=== PATIENT | male | born 1975 | race Caucasian/White ===

== ENCOUNTER 2025-02-22 14:06 | Inpatient (IN) | payer SELFPAY ==
[2025-02-22] VITALS (8 sets, daily range): BP systolic 125–156; BP diastolic 80–99; PULSE 88–117; RESP 15–19; TEMP 35.7–36.4; O2SAT 99–100; BMI 22.4
--- NOTE | ~2025-02-22 | XR_ITS ---
EXAMINATION: XR foot RT min 3V DATE: 02/22/2025 14:44 INDICATION: Necrotic great toe TECHNIQUE: Dorsoplantar, two oblique and lateral views of the right foot were obtained. COMPARISON: None. FINDINGS: Bone alignment is normal. No fracture. There is cortical erosion with osteolysis at the medial base o f the right first distal phalanx underlying an apparent skin ulceration and consistent with osteomyel itis. There is lucent region of soft tissue gas at the site of the erosion. No other erosions identif ied. Mild osteoarthritis at the first metatarsophalangeal and a few of the tarsal metatarsal and inte rphalangeal joints. Small Achilles and plantar calcaneal spurs. IMPRESSION: 1. Osteomyelitis with cortical erosion and osteomyelitis at the medial base of the right first distal phalanx. Reviewed, dictated and finalized at location B.
--- OUTSIDE RECORDS SUMMARY | 2025-02-22 14:22 | XMS_ITS | Clinical Summary ---
Author Organization [facility] Address [address] [place] [address] Care Team Providers Care Mortgage Protection Specialist Name Role Phone Unavailable Primary Care Provider Unavailabl e Source Comments [facility],non-owned Affiliates and Associated Physician Practices is amultiple site organization consisting of ambulatory clinics and hospital sitesin [place], [place], [place] and [place]. This disclosure is being madepursuant to the Care Everywhere program and may not contain all information available regarding this patient. Last updated 18.[facility] Social History Tobacco Use Types Packs/Day Years Used Date Smoking Tobacco: Never Assessed Sex and Gender Information Value Date Recorded Sex Assigned at Not on file Legal Sex Male 9:02 AM CDT Gender Identity Not on file Sexual Orientation Not on file Plan of Treatment Upcoming Encounters Date Type Department Care Team (Late st Contact Info) Description 03/01/2025 2:30 PM CDT Office Visit [facility] - Family Medicine [address] [facility] [address] [place] [address] Cash Wallace PA-C [address] [place] [phone] Health Maintenance Due Date Last Done Comments COLOGUARD (AGES 45-75) - COL ON CA SCREENING 1976 COLON MONITORING 1976 COLONOSCOPY - COLON CA SCREENING 1976 CT COLONOGRAPHY - COLON CA SCREENING 1976 Colorectal Cancer Screening 1976 FIT - COLON CA SCREENING 1976 FLEX SIG - COLON CA SCREENING 1976 LIPID TESTING 1976 HIV SCREENING 1991 HEPATITIS C SCREENING 08/23/1994 DTAP/TDAP/TD VACCINES (1 - Tdap) 1995 HEPATITIS B VACCINE (1 of 3 - 19+ 3-dose series) 1995 COVID-19 VACCINE (1 - 2024-2 5 season) 2024 DEPRESSION SCREENING 09/06/2024 INFLUENZA VACCINE (Season Ended) 2025 ZOSTER VACCINE (1 of 2) 2026 HIB VACCINE Aged Out No longer eligi ble based on patient's age to complete this topic HPV VACCINE Aged Out No longer eligi ble based on patient's age to complete this topic MENINGOCOCCAL (Group B) VACC INE SHARED DECISION-MAKING Aged Out No longer eligibl e based on patient's age to complete this topic MENINGOCOCCAL GROUPS A/C/Y/W VACCINE Aged Out No longer eligible b ased on patient's age to complete this topic PNEUMOCOCCAL VACCINE Aged Out No long er eligible based on patient's age to complete this topic
--- OUTSIDE RECORDS SUMMARY | 2025-02-22 14:22 | XMS_ITS | Continuity of Care Document ---
Author Organization [facility] Address [address] [place] [address] Phone Care Team Providers Care Pie Maker Name Role Phone Unavailable Unavailable Unavailable Procedures Procedure Date OFFICE/OUTPATIENT VISIT, NEW COLLECTION OF VENOUS BLOOD BY VENIPUNCTU RE COLLECTION OF VENOUS BLOOD BY VENIPUNCTU RE Advance Directives Directive Yes / No Effective Date File Name No Information Encounters Encounter Description Practice Location Reason(s) For Visit Diagnoses Date Provider Providers Copied on Encounter [facility], [address], [place], [place], [id number] , tel:[phone] [facility] [place] No Information 3 No Information OFFICE/OUTPAT IENT VISIT, NEW [facility], [address], [place], [place], [address] , tel: [phone] [facility] [place] Begin ADHA medication (chief complaint) 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 [address], [place], [place], [address], . [phone] Family History Family Member Type Diagnosis Age At Onset No Information Payers Payer name Insurance type Covered green party ID Authoriza tion(s) No Information Social History Type Description Quantity Date Captured Comments Sex Male Smoking Status No Information Chief Complaint And Reason For Visit No Information Reason For Referral Reason For Referral No Information Plan Of Treatment Date Type Action Status Goal BMP fasting. Due on 012 due Referral Ordered: Records Request ordered History Of Present Illness Encounter Date Complaint History Of Prese nt Illness No Information Functional Status Date Functional Assessmen t No Information Instructions Date Instruction Additional Infor mation No Information Assessments Type Assessment Date No Information Patient Care Teams Name Effective Dates (start - stop) Status Members No Information
--- NOTE | 2025-02-22 14:26 | ED_ITS ---
HPI - Wound/Laceration General Chief Complaint: Wound/Laceration Stated Complaint: right great toe infection Time Seen by Provider: 02/22/25 14:15 History of Present Illness HPI narrative: Pt presents with infected right great toe for some time. Pt says he may be diabetic but does not take any meds. Pt denies fever or chills. Related Data Allergies Allergy/AdvReac Type Severity Reaction Status Date / Time No Known Allergies Allergy Unverified 11/04/18 09:01 Review of Systems 2 Review of Systems: All systems reviewed & are unremarkable except as noted in HPI and below PMFSH Past Medical History Medical History Diabetes Surgical History Surgical History No pertinent past surgical history Family History Family History Father Family history of suicide, Onset Age: 45 Family history of diabetes mellitus in first degree relative Mother Family history of diabetes mellitus in first degree relative Social History Social History Smoking status: Current every day smoker Alcohol intake: never Substance use: current Substance use type: amphetamines Last use: Last weekend Exam 2 Const: General: healthy appearing and no acute distress Nutritional Appearance: well nourished Orientation/consciousness: patient oriented x3 Limitations: no limitations Eyes: Pupils: Equal, round and reactive pupils present EOM: EOMs intact bilaterally Resp: Effort & Inspection: normal respiratory effort Auscultation: clear to auscultation bilaterally Cardio: Rate: regular rate Rhythm: regular rhythm GI: GI Palp: Yes Soft to palpation and No Tenderness to palpation present (GI) Auscultation: normal bowel sounds Skin: Wounds: wounds noted Other: necrotic tissue on right great toe with surrounding erythema Neuro: General: patient oriented x3, moves all extremities, no meningeal signs and no focal motor deficits Speech: normal speech Extrem: Other: see skin exam above, DP pulse intact Psych: Mental Status: mental status grossly normal Affect: normal affect Attitude: cooperative Course Vital Signs Vital signs: Vital Signs Temperature 97.6 F 02/22/25 14:15 Pulse Rate 117 H 02/22/25 14:15 Respiratory Rate 18 02/22/25 14:15 Blood Pressure 128/99 H 02/22/25 14:15 Pulse Oximetry 100 02/22/25 14:15 Temperature 97.6 F 02/22/25 14:15 Pulse Rate 117 H 02/22/25 14:15 Respiratory Rate 18 02/22/25 14:15 Blood Pressure 128/99 H 02/22/25 14:15 Pulse Oximetry 100 02/22/25 14:15 MDM - Wound/Laceration MDM Narrative Medical decision making narrative: Pt has necrotic gangrenous right great toe and possible diabetes. will get labs and x ray and admit for antibiotics and surgical consult. Dr Vasquez will take care of surgical needs. wbc is elevated, osteo on x ray, elevated esr, crp, glucose 617, sodium 128 bicarb 20 so no acidotic. will give insulin and fluids and start antibiotics. discussed with Pinky and agrees to admit. Lab Data 02/22/25 14:32 02/22/25 14:32 Labs: Lab Results 02/22/25 Range/Units 14:32 WBC 12.3 H (4.5-10.0) K/mm3 RBC 5.25 (4.6-6.20) M/mm3 Hgb 15.3 (14.0-18.0) g/dL Hct 46.6 (42.0-52.0) % MCV 88.8 (80-100) fl MCH 29.1 (26-34) pg MCHC 32.8 (32-36) g/dl RDW 13.2 (11.5-14.5) % Plt Count 557 H (150-375) k/mm3 MPV 10.5 H (7.4-10.4) fl Immature Gran % (Auto) 1.0 H (0-0.5) % Neut % (Auto) 66.2 (45.5-73.1) % Lymph % (Auto) 25.3 (18.3-44.2) % Taylor % (Auto) 6.2 (2.6-8.5) % Eos % (Auto) 0.6 (0-4.4) % Baso % (Auto) 0.7 (0.2-1.2) % Lymph # (Auto) 3.11 (0.9-3.2) K/mm3 Taylor # (Auto) 0.8 H (0.1-0.6) K/mm3 Eos # (Auto) 0.1 (0-0.3) K/mm3 Baso # (Auto) 0.1 (0.0-0.1) K/mm3 Abs Immat Gran (auto) 0.12 H (0.00-0.031) K/mm3 Absolute Neuts (auto) 8.1 H (1.3-6.7) K/mm3 Absolute Nucleated RBC 0.000 (0.0-0.012) K/mm3 Nucleated RBC % 0.0 (0.0-0.2) % PT 13.7 (11.1-14.7) Seconds INR 1.0 APTT 31.5 (22.3-36.8) Seconds Sodium 128 L (137-145) mmol/L Potassium 4.8 (3.4-5.0) mmol/L Chloride 95 L (98-107) mmol/L Carbon Dioxide 20 L (22-30) mmol/L Anion Gap 13 H (4-12) mmol/L BUN 18 (9-20) mg/dL Creatinine 0.82 (0.7-1.3) mg/dL Estim Creat Clear Calc 105 ml/min Estimated GFR > 60 (59 - ) Glucose 617 H* (65-110) mg/dL Lactic Acid 2.6 H (0.7-2.0) mmol/L Calcium 9.4 (8.4-10.2) mg/dL Total Bilirubin 0.7 (0.2-1.3) mg/dL AST 27 (17-59) U/L ALT 34 (6-50) U/L Alkaline Phosphatase 134 H (38-126) U/L C-Reactive Protein 1.3 H (<1.0) mg/dL Total Protein 8.0 (6.3-8.2) g/dL Albumin 4.0 (3.5-5.1) g/dL Discharge Plan Discharge Clinical Impression: Osteomyelitis, Diabetes Patient Disposition: Still a Patient Condition: Serious
[2025-02-22 14:39] LABS: Basophils Absolute Auto 0.1 K/mm3 (0.0-0.1); Basophils Percent Auto 0.7 % (0.2-1.2); Eosinophils Absolute Auto 0.1 K/mm3 (0-0.3); Eosinophils Percent Auto 0.6 % (0-4.4); Hematocrit 46.6 % (42.0-52.0); Hemoglobin 15.3 g/dL (14.0-18.0); Immature Granulocyte Absolute 0.12 K/mm3 (0.00-0.031); Lymphocytes Absolute Auto 3.11 K/mm3 (0.9-3.2); Lymphocytes Percent Auto 25.3 % (18.3-44.2); Mean Corpuscular HGB Conc 32.8 g/dl (32-36); Mean Corpuscular Hemoglobin 29.1 pg (26-34); Mean Corpuscular Volume 88.8 fl (80-100); Mean Platelet Volume 10.5 fl (7.4-10.4); Monocytes Absolute Auto 0.8 K/mm3 (0.1-0.6); Monocytes Percent Auto 6.2 % (2.6-8.5); Neutrophils Absolute Auto 8.1 K/mm3 (1.3-6.7); Neutrophils Percent Auto 66.2 % (45.5-73.1); Platelet Count Result 557 k/mm3 (150-375); Red Blood Count 5.25 M/mm3 (4.6-6.20); Red Cell Distribution Width 13.2 % (11.5-14.5); White Blood Count 12.3 K/mm3 (4.5-10.0)
[2025-02-22 14:48] LABS: Lactic Acid Reflex 2.6 mmol/L (0.7-2.0)
[2025-02-22 14:56] LABS: Alanine Aminotransferase 34 U/L (6-50); Alkaline Phosphatase 134 U/L (38-126); Anion Gap 13 mmol/L (4-12); Aspartate Amino Transferase 27 U/L (17-59); Bilirubin,Total 0.7 mg/dL (0.2-1.3); Blood Urea Nitrogen 18 mg/dL (9-20); CRP 1.3 mg/dL (<1.0); Calcium 9.4 mg/dL (8.4-10.2); Carbon Dioxide 20 mmol/L (22-30); Chloride 95 mmol/L (98-107); Estimated CRCL calculation 105 ml/min; Estimated Glomerular Filt Rate > 60; Glucose 617 mg/dL (65-110); Potassium 4.8 mmol/L (3.4-5.0); Sodium 128 mmol/L (137-145)
[2025-02-22 15:02] LABS: Partial Thromboplastin Time 31.5 Seconds (22.3-36.8); Prothrombin Time 13.7 Seconds (11.1-14.7)
[2025-02-22] MEDS: SODIUM CHLORIDE 0.9% IV 1,000 ML 999 ML IV CONT (15:07)
[2025-02-22] MEDS: INSULIN HUMAN REGULAR (*BKC) 100 UNITS/ML 10 UNITS IV PUSH (15:14)
--- NOTE | 2025-02-22 15:31 | P.CONGS_ITS ---
Assessment and Plan Assessment and plan (1) Diabetic ulcer of right great toe: Code(s): E11.621 - Type 2 diabetes mellitus with foot ulcer; L97.519 - Non-pressure chronic ulcer of other part of right foot with unspecified severity Status: Acute Assessment and Plan: * Wet gangrenous right great toe diabetic ulcer on the dorsal aspect with evidence of osteomyelitis of the base of the distal phalanx on plain films. The wound is extensive with minimal viable tissue remaining of the great plantar aspect of the toe. He will likely require right great toe amputation, which was discussed with the patient. He is somewhat newly diagnosed diabetic (diagnosed in September but never followed up with a primary physician) and his glucose is in the 600's. We will start broad-spectrum IV antibiotics for diabetic foot wound and he will be admitted to the hospitalist service for his uncontrolled diabetes. Will start local wound care with Betadine dressing changes q.[address] Vasquez will evaluate the patient himself and decide on timing for surgery. Will make the patient NPO at 6:00 a.m. tomorrow in case he is added onto the schedule for tomorrow afternoon. We will continue to follow closely. (2) Osteomyelitis: Code(s): M86.9 - Osteomyelitis, unspecified Status: Acute Assessment and Plan: * Continue IV antibiotics. See plan above. (3) Diabetes: Code(s): E11.9 - Type 2 diabetes mellitus without complications Status: Acute Assessment and Plan: * Management per hospitalist (4) Tobacco abuse: Code(s): Z72.0 - Tobacco use Status: Acute Assessment and Plan: * Encouraged cessation Plan I have discussed the patient's case and plan of care with Dr. Vasquez. History of Present Illness Consult details Consult date: 02/22/25 Reason for consult: other (Right great toe ulcer) Requesting physician: Enriqueta Guevara III, DO Narrative: This is a 49-year-old male who we have been asked to see in surgical consultation for a right great toe ulcer. He presented to the ED today for evaluation of his right great toe wound. He reports being newly diagnosed with type 2 diabetes mellitus at [facility] in September of this year. He was recommended to follow up outpatient in establish care with a PCP, but failed to establish care. He reports having his first visit scheduled later this month. Over the past 5-6 weeks, he has developed a wound on his dorsal right great toe. He states that initially appeared like a blister. There was redness and swelling. He denies any injury to his foot. He attempted to take doxycycline from a friend for about 2 weeks, which ended a week and half ago. Over the past 2 weeks, he has noticed black areas within his wound. His friend saw his foot and encouraged him to come into the ED today. On arrival to the ED, he is tachycardic with a heart rate in the 1 teens, blood pressure is stable, and he is afebrile. Labs showed a white blood cell count of 12,300, sodium 128, anion gap 13, glucose 617, lactic acid 2.6, and CRP 1.3. X-rays of the right foot showed osteomyelitis at the medial base of the right first distal phalanx. Review of Systems 2 Review of Systems: All systems reviewed & are unremarkable except as noted in HPI and below PMFSH Past Medical History Medical History Diabetes Surgical History Surgical History No pertinent past surgical history Family History Family History Father Family history of suicide, Onset Age: 45 Family history of diabetes mellitus in first degree relative Mother Family history of diabetes mellitus in first degree relative Social History Social History Smoking status: Current every day smoker Alcohol intake: never Substance use: current Substance use type: amphetamines Last use: Last weekend Meds Home Medications and Allergies Allergies Allergy/AdvReac Type Severity Reaction Status Date / Time No Known Allergies Allergy Unverified 11/04/18 09:01 Vital Signs Vital Signs - 24 hr 02/22/25 14:15 Temperature 97.6 F Pulse Rate 117 H Respiratory Rate 18 Blood Pressure 128/99 H Pulse Oximetry 100 Exam 2 Const: General: no acute distress and other (Disheveled) Nutritional Appearance: average body habitus Orientation/consciousness: patient oriented x3 HENMT: Head: normocephalic and atraumatic Ears: hearing grossly normal bilaterally Mouth: Yes moist mucous membranes Eyes: General: appearance normal, both eyes and all related structures P upils: Equal, round and reactive pupils present Neck: Neck: normal visual inspection and full ROM Resp: Effort & Inspection: no respiratory distress Auscultation: clear to auscultation bilaterally Cardio: Rate: tachycardic Rhythm: regular rhythm GI: Inspection: non-distended GI Palp: Yes Soft to palpation, No Tenderness to palpation present (GI), No Guarding due to palpation present (GI) and No Rebound tenderness present Auscultation: normal bowel sounds Skin: General skin exam: normal color Neuro: General: moves all extremities and no focal motor deficits Speech: n ormal speech Motor exam (neuro): 5/5 motor strength present throughout Extrem: Right upper extremity: normal to inspection Left upper extremity: n ormal to inspection Right lower extremity: foot Details: vascular exam Details: dorsalis pedis pulse present (Palpable but weak) and normal capillary refill (Foot warm); posterior tibial pulse absent, not cool and no cyanosis L eft lower extremity: normal to inspection Other: Right great toe ulcer on the dorsal aspect of the great toe extending below the webbing of his toes and extending to the first MTP joint. The ulcer extends both medially and laterally on both sides of his toe towards the plantar aspect, including about 75% circumference of his toe. The entire wound is covered by a soft black eschar with purulence drainage and a foul odor. There are 2 areas where bone is obviously exposed at the distal phalanx and proximal phalanx on the dorsal foot. The wound measures about 6 x 6 x 1 cm. There is trace edema of the right foot, but no spreading erythema down the forefoot past the wound. He has good sensation of his right foot. He is able to wiggle his toes and has full range of motion of his ankle. Psych: Mental Status: mental status grossly normal Attitude: cooperative Insight: Good insight present (Psych) Judgement: Good judgement present (Psych) Results Labs 02/22/25 14:32 02/22/25 14:32 Labs: Abnormal lab results 02/22/25 Range/Units 14:32 WBC 12.3 H (4.5-10.0) K/mm3 Plt Count 557 H (150-375) k/mm3 MPV 10.5 H (7.4-10.4) fl Immature Gran % (Auto) 1.0 H (0-0.5) % Mayes # (Auto) 0.8 H (0.1-0.6) K/mm3 Abs Immat Gran (auto) 0.12 H (0.00-0.031) K/mm3 Absolute Neuts (auto) 8.1 H (1.3-6.7) K/mm3 Sodium 128 L (137-145) mmol/L Chloride 95 L (98-107) mmol/L Carbon Dioxide 20 L (22-30) mmol/L Anion Gap 13 H (4-12) mmol/L Glucose 617 H* (65-110) mg/dL Lactic Acid 2.6 H (0.7-2.0) mmol/L Alkaline Phosphatase 134 H (38-126) U/L C-Reactive Protein 1.3 H (<1.0) mg/dL Diabetes panel 02/22/25 Range/Units 14:32 Sodium 128 L (137-145) mmol/L Potassium 4.8 (3.4-5.0) mmol/L Chloride 95 L (98-107) mmol/L Carbon Dioxide 20 L (22-30) mmol/L BUN 18 (9-20) mg/dL Creatinine 0.82 (0.7-1.3) mg/dL Glucose 617 H* (65-110) mg/dL Calcium 9.4 (8.4-10.2) mg/dL AST 27 (17-59) U/L ALT 34 (6-50) U/L Alkaline Phosphatase 134 H (38-126) U/L Total Protein 8.0 (6.3-8.2) g/dL Albumin 4.0 (3.5-5.1) g/dL Calcium panel 02/22/25 Range/Units 14:32 Calcium 9.4 (8.4-10.2) mg/dL Albumin 4.0 (3.5-5.1) g/dL Pituitary panel 02/22/25 Range/Units 14:32 Sodium 128 L (137-145) mmol/L Potassium 4.8 (3.4-5.0) mmol/L Chloride 95 L (98-107) mmol/L Carbon Dioxide 20 L (22-30) mmol/L BUN 18 (9-20) mg/dL Creatinine 0.82 (0.7-1.3) mg/dL Glucose 617 H* (65-110) mg/dL Calcium 9.4 (8.4-10.2) mg/dL Adrenal panel 02/22/25 Range/Units 14:32 Sodium 128 L (137-145) mmol/L Potassium 4.8 (3.4-5.0) mmol/L Chloride 95 L (98-107) mmol/L Carbon Dioxide 20 L (22-30) mmol/L BUN 18 (9-20) mg/dL Creatinine 0.82 (0.7-1.3) mg/dL Glucose 617 H* (65-110) mg/dL Calcium 9.4 (8.4-10.2) mg/dL Total Bilirubin 0.7 (0.2-1.3) mg/dL AST 27 (17-59) U/L ALT 34 (6-50) U/L Alkaline Phosphatase 134 H (38-126) U/L Total Protein 8.0 (6.3-8.2) g/dL Albumin 4.0 (3.5-5.1) g/dL All other labs normal. Imaging Additional studies: ITS Impressions Foot X-Ray 02/22/25 14:48 IMPRESSION: 1. Osteomyelitis with cortical erosion and osteomyelitis at the medial base of the right first distal phalanx.
--- OUTSIDE RECORDS SUMMARY | 2025-02-22 15:58 | XMS_ITS | Clinical Summary ---
Author Organization [facility] Address [address] [place] [address] Care Team Providers Care Senior Talent Acquisition Specialist Name Role Phone Unavailable Primary Care Provider Unavailabl e Source Comments [facility],non-owned Affiliates and Associated Physician Practices is amultiple site organization consisting of ambulatory clinics and hospital sitesin [place], [place], [place] and [place]. This disclosure is being madepursuant to the Care Everywhere program and may not contain all information available regarding this patient. Last updated 18.[facility] Social History Tobacco Use Types Packs/Day Years Used Date Smoking Tobacco: Never Assessed Sex and Gender Information Value Date Recorded Sex Assigned at Not on file Legal Sex Male 9:02 AM CDT Gender Identity Not on file Sexual Orientation Not on file Plan of Treatment Upcoming Encounters Date Type Department Care Team (Late st Contact Info) Description 03/01/2025 2:30 PM CDT Office Visit [facility] - Family Medicine [address] [facility] [facility] [address] [place] [address] Cash Wallace PA-C [address] [place] [phone] Health Maintenance Due Date Last Done [...]
--- OUTSIDE RECORDS SUMMARY | 2025-02-22 15:58 | XMS_ITS | Continuity of Care Document ---
Author Organization [facility] Address [address] [place] [address] Phone Care Team Providers Care It Professional Name Role Phone Unavailable Unavailable Unavailable Procedures Procedure Date OFFICE/OUTPATIENT VISIT, NEW COLLECTION OF VENOUS BLOOD BY VENIPUNCTU RE COLLECTION OF VENOUS BLOOD BY VENIPUNCTU RE Advance Directives Directive Yes / No Effective Date File Name No Information Encounters Encounter Description Practice Location Reason(s) For Visit Diagnoses Date Provider Providers Copied on Encounter [facility], [address], [place], [place], [id number] , tel:[phone] [facility] [place] No Information 3 No Information OFFICE/OUTPAT IENT VISIT, NEW [facility] [employer] [employer], [address], [place], [place], [id number] , tel: [phone] [facility] [place] Begin ADHA medication (chief complaint) 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 [address], [place], [place], [id number], . [phone] Family History Family Member Type Diagnosis Age At Onset No Information Payers Payer name Insurance type Covered libertarian ID Authoriza tion(s) No Information Social History [...]
[2025-02-22] MEDS: CEFEPIME 2 GM/NS 50 ML 2 GM/50 ML BAG IVPB (16:11)
[2025-02-22 16:37] LABS: Reflex Lactic Acid Yes or No Add Lactic
[2025-02-22 16:42] LABS: Glucose Point of Care 299 mg/dl (65-105)
[2025-02-22] MEDS: VANCOMYCIN 2,000 MG/NS 500 ML 2,000 MG/500 ML BAG 250 MG IVPB (16:56)
[2025-02-22 17:23] LABS: Lactic Acid 1.8 mmol/L (0.7-2.0)
--- NOTE | 2025-02-22 18:55 | ADMGEN ---
This patient, Brian Watson, was admitted to [facility] Surg Room 327-01. Patient/family oriented to hospital policies and general routines including ID bracelet, bed and alarms, visiting hours, pain management, procedures, bathroom and other care routines, personal items, smoking policy, room service/diet, and visiting hours. Information on how to activate the Rapid Response Team has been discussed. Patient/Family are encouraged to report perceived risks to care and to ask questions if they do not understand what they are told or what they should do.
[2025-02-22] MEDS: metroNIDAZOLE 500 MG/ISO 100ML 500 MG/100 ML BAG 100 MG IVPB (19:01)
[2025-02-22 20:48] LABS: Glucose Point of Care 253 mg/dl (65-105)
--- NOTE | 2025-02-22 20:52 | P.HP_ITS ---
H&P: HPI History of Present Illness Date/Time: 02/22/25 20:52 Chief Complaint: Infected right big toe Narrative: 49-year-old male with a past medical history of PTSD, anxiety, tobacco abuse and diabetes who did not follow-up with care it does not take any diabetic medications who presented to the ER with a chronic wound to his right great toe. The patient reports that he has had a wound to his right great toe for about 2 months or so. He stated that he actually got a blister on his opposite toe and he thinks that he was walking funny to compensate for the blister on his right toe when he developed a wound to his left toe. He reports that the wound is painful if he is up and walking but is relatively minor pain if he is resting with his leg elevated. Over the last 2 weeks the wound has acutely worsened and is developed large area of necrosis to the top of the toe with purulence drainage and erythema more proximal into the foot. He denies any fevers or chills. He does have symptoms of neuropathy but denies a prior diagnosis. He states that he was initially told the had diabetes in August when he was evaluated at [facility]. He states that he was hospitalized there but then left AMA due to his PTSD. He states he is often ?difficult to deal with?. He has had about 1 month of increased polydipsia, polyuria and polyphagia from baseline. He reports that he always feels thirsty. He denies any dysuria year hematuria. He has noticed an acute change in his vision over the last month with increased blurry vision although he states that his vision is not good at baseline. He has not seen an eye doctor in many years. He does have chronic dental caries with multiple teeth broken off at the gumline but denies any current oral infections or pain. He reports unintentional weight loss of about 100 lb over the last 2-2 and half years. I suspect that he likely has had diabetes for this time. In this is resulted in his weight loss. In the ER patient's glucoses were noted to be in 600. Patient had a gangrenous appearing great toe. His labs also demonstrated leukocytosis without neutrophil predominance, pseudo hyponatremia with sodium of 128, hypochloremia and mildly decreased serum bicarb at 20 with mildly elevated anion gap at 13. He received 1 L fluid bolus in the ER and 10 units of IV insulin. His repeat glucose was down to 299. His CRP was mildly elevated 1.3. X-ray of the foot demonstrated osteomyelitis with cortical erosion and osteomyelitis at the medial base of the right 1st distal phalanx. Blood cultures were obtained. Patient was evaluated by General surgery and the patient was admitted for further treatment. Review of Systems 2 Review of Systems: 12 systems were reviewed with pertinent positives and negatives per HPI. Except as documented in the HPI, all other systems were reviewed and are negative. [facility] Past Medical History Medical History (Updated 02/22/25 @ 21:01 by Linda Linder DO) PTSD (post-traumatic stress disorder) ADHD Glaucoma Diabetes Tobacco abuse Surgical History Surgical History (Updated 02/23/25 @ 00:04 by Linda Linder DO) No history of previous surgery Family History Family History (Updated 02/22/25 @ 20:58 by Linda Linder DO) Father Family history of suicide, Onset Age: 45 Diabetes mellitus Mother Diabetes mellitus Social History Social History (Updated 02/23/25 @ 00:08 by Linda Linder DO) Social History: Patient currently lives with a friend. He is single and never been . He has smoked up to a pack of cigarettes per day and started smoking when he was 25. He has cut back to 0.5 packs of cigarettes per day for the last 5 months. He drinks alcohol on rare occasion and only in moderation. Does have a history of experimenting with multiple drugs in the past including cocaine many years ago. He states that he still smokes methamphetamines on an intermittent basis. He smokes marijuana somewhat frequently. Code status: Full code Surrogate decision maker: Andrew Yarelis (friend) Smoking packs per day: 1 Smoking cigarettes per day: 20.0 Years smoked: 24 Smoking pack-years: 24.00 Smoking status: Current every day smoker Alcohol intake: current Alcohol use details: Fair couple of times a year in small amounts. Substance use: current Substance use type: amphetamines and methamphetamine Other substance usage details: Cocaine many years ago. Marijuana frequently Last use: 02/18/2025 Do You Feel Safe in your Home?: Yes Lack of Transportation: No Lack of Food: Often True Current Housing: I Have Housing Concerned About Future Housing: YES Difficulty Paying Gas/Electric Bills: No Difficulty Paying for Meds: YES Currently Unemployed: No Education: High School Diploma/GED Difficulty w/ Childcare or Family Care: No Living arrangements: with friend(s) Additional occupation/education comments: He works [employer]. Spiritual care concerns: No Meds Home Medications and Allergies Home Medications ?Medication ?Instructions ?Recorded ?Confirmed ?Type No Home Medications 02/22/25 02/22/25 History Allergies Allergy/AdvReac Type Severity Reaction Status Date / Time No Known Allergies Allergy Unverified 11/04/18 09:01 Vital Signs Vital Signs - 24 hr 02/22/25 14:15 02/22/25 14:30 02/22/25 15:30 Temperature 97.6 F Pulse Rate 117 H 111 H 103 H Respiratory Rate 18 15 19 Blood Pressure 128/99 H 128/99 H 125/93 H Pulse Oximetry 100 100 100 02/22/25 16:30 02/22/25 17:30 02/22/25 18:36 Temperature Pulse Rate 100 97 92 Respiratory Rate 18 18 18 Blood Pressure 142/98 H 136/90 156/96 H Pulse Oximetry 100 100 100 02/22/25 18:50 Temperature 96.3 F L Pulse Rate 88 Respiratory Rate 16 Blood Pressure 129/80 Pulse Oximetry 99 Exam 2 Narrative: Weight 77 kg BMI 22.4 Const: Other: No acute distress, well-developed well-nourished, disheveled HENMT: Other: Mucous membranes are moist, no oral pharyngeal erythema, head is normocephalic atraumatic, poor dentition with multiple teeth broken off at the gumline in numerous dental caries Eyes: Other: Pupils are equal and reactive, extraocular movements intact, no scleral icterus Neck: Other: No JVD, no lymphadenopathy Resp: Other: Clear to auscultation bilaterally, no increased work of breathing Cardio: Other: Regular rate, regular rhythm, 2+ bilateral radial pedal pulses GI: Other: Soft, nontender, nondistended, positive bowel sounds Skin: Other: No jaundice, no pallor, large necrotic wound over the dorsal aspect of the right great toe Neuro: Other: Alert oriented, speech is clear, no facial asymmetry, no localizing neurologic deficits noted during the course of conversation Extrem: Other: No clubbing, cyanosis, large necrotic wound to the dorsal surface of the right great toe extending into the forefoot with erythema more proximal to the wound, complete destruction of the nail bed of the great toe, no wounds noted to the other toes, mild edema of the forefoot more notably to the medial side Psych: Other: Anxious, restless, otherwise pleasant and cooperative, fair judgment and insight H&P: Results Labs Labs: Laboratory Tests 02/22/25 14:32 02/22/25 14:32 02/22/25 02/22/25 02/22/25 14:32 16:40 16:57 WBC 12.3 H RBC 5.25 Hgb 15.3 Hct 46.6 MCV 88.8 MCH 29.1 MCHC 32.8 RDW 13.2 Plt Count 557 H MPV 10.5 H Immature Gran % (Auto) 1.0 H Neut % (Auto) 66.2 Lymph % (Auto) 25.3 [place] % (Auto) 6.2 Eos % (Auto) 0.6 Baso % (Auto) 0.7 Lymph # (Auto) 3.11 [place] # (Auto) 0.8 H Eos # (Auto) 0.1 Baso # (Auto) 0.1 Abs Immat Gran (auto) 0.12 H Absolute Neuts (auto) 8.1 H Absolute Nucleated RBC 0.000 Nucleated RBC % 0.0 PT 13.7 INR 1.0 APTT 31.5 Sodium 128 L Potassium 4.8 Chloride 95 L Carbon Dioxide 20 L Anion Gap 13 H BUN 18 Creatinine 0.82 Estim Creat Clear Calc 105 Estimated GFR > 60 Glucose 617 H* POC Capillary Glucose 299 H Lactic Acid 2.6 H 1.8 Calcium 9.4 Total Bilirubin 0.7 AST 27 ALT 34 Alkaline Phosphatase 134 H C-Reactive Protein 1.3 H Total Protein 8.0 Albumin 4.0 02/22/25 20:07 WBC RBC Hgb Hct MCV MCH MCHC RDW Plt Count MPV Immature Gran % (Auto) Neut % (Auto) Lymph % (Auto) [place] % (Auto) Eos % (Auto) Baso % (Auto) Lymph # (Auto) [place] # (Auto) Eos # (Auto) Baso # (Auto) Abs Immat Gran (auto) Absolute Neuts (auto) Absolute Nucleated RBC Nucleated RBC % PT INR APTT Sodium Potassium Chloride Carbon Dioxide Anion Gap BUN Creatinine Estim Creat Clear Calc Estimated GFR Glucose POC Capillary Glucose 253 H Lactic Acid Calcium Total Bilirubin AST ALT Alkaline Phosphatase C-Reactive Protein Total Protein Albumin Impressions Foot X-Ray 02/22/25 14:48 IMPRESSION: 1. Osteomyelitis with cortical erosion and osteomyelitis at the medial base of the right first distal phalanx. All imaging and EKGs personally reviewed and interpreted. And unless stated otherwise agree with radiologic and cardiology interpretation. Assessment and Plan Assessment and plan (1) Diabetic ulcer of right great toe: Code(s): E11.621 - Type 2 diabetes mellitus with foot ulcer; L97.519 - Non-pressure chronic ulcer of other part of right foot with unspecified severity Status: Acute (2) Osteomyelitis: Qualifiers: Laterality: right Osteomyelitis location: foot Osteomyelitis type: c hronic, with draining sinus Qualified Code(s): M86.471 - Chronic osteomyelitis with draining sinus, right ankle and foot Code(s): M86.9 - Osteomyelitis, unspecified Status: Acute (3) Type 2 diabetes mellitus with hyperglycemia, without long-term current use of insulin: Code(s): E11.65 - Type 2 diabetes mellitus with hyperglycemia Status: Acute (4) Diabetic peripheral neuropathy: Code(s): E11.42 - Type 2 diabetes mellitus with diabetic polyneuropathy Status: Acute (5) Tobacco abuse: Code(s): Z72.0 - Tobacco use Status: Acute Plan Patient has acute osteomyelitis complicating chronic diabetic foot wound of the right great toe. Patient has been evaluated by surgery and hyper she surgeons assistance in patient's care.. Patient will be made NPO at midnight for anticipated amputation of right great toe. Patient was started on empiric antibiotic therapy with with cefepime, Flagyl and vancomycin per antibiotic stewardship guidelines. Blood cultures have been obtained and are pending. Will monitor CBC. Currently the patient does not demonstrate evidence of sepsis but will monitor vitals closely. Patient has uncontrolled diabetes and never followed up with primary care. The importance of diabetic control head reducing risk of progressive peripheral neuropathy and recurrent diabetic infections was discussed with the patient in detail. Will start the patient on Lantus 15 units subQ nightly and will place patient on moderate dose sliding scale insulin with Accu-Cheks a.c. HS. As evidenced by the rapid correction in the patient's glucose was only 10 units of IV insulin patient is insulin naive so will monitor glucoses closely with insulin therapy. Patient reports the overall feels better since he has received fluids and insulin. Patient will require Diabetes Education. He will require glucometer and test strips on discharge. 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 Importance of tobacco cessation neck specially in the acute postsurgical phase and risks to continued tobacco use with wound healing was discussed with the patient. Tobacco cessation encouraged but the patient is not interested in quitting. He has made efforts to cut back on smoking in his decreased down to half a pack of cigarettes per day for the last 5 months. Tobacco cessation information provided. Will provide nicotine patch. MEDICAL DECISION MAKING NARRATIVE -Spoke with the ED provider in detail regarding patient's evaluation, workup and management -Patient seen and examined at bedside -Collaborated with patient's nurse at the bedside in detail and addressed all concerns -Labs, electrolytes, radiology, investigations and test results reviewed -ED/Consult/Nursing/Ancilliary notes on the chart reviewed and appreciated -Spoke with patient/family at the bedside and answered all questions. Quality VTE Prophylaxis VTE prophylaxis: pharmacologic ordered (Lovenox 40 mg subQ daily.) Hospitalist [facility] Advance Care Plan I have confirmed that the patient's Advanced Care Plan is present, code status is documented, or surrogate decision maker is listed in patient medical record.: Yes Medication Reconciliation I have utilized all available resources to obtain, update and review the patients current medications (includes all prescriptions, OTC, herbals, cannabis, and nutritional supplements).: Yes
[2025-02-22] MEDS: SODIUM CHLORIDE 0.9% IV 1,000 ML 125 ML IV CONT (21:01)
[2025-02-22] MEDS: INSULIN GLARGINE (*BKC) 100 UNITS/ML 15 UNITS SUB-Q (21:10)
[2025-02-22] MEDS: INSULIN ASPART (*BKC) 100 UNITS/ML SUB-Q (21:11)
[2025-02-22 21:32] LABS: Anion Gap 7 mmol/L (4-12); Blood Urea Nitrogen 15 mg/dL (9-20); Calcium 8.8 mg/dL (8.4-10.2); Carbon Dioxide 24 mmol/L (22-30); Chloride 100 mmol/L (98-107); Estimated CRCL calculation 115 ml/min; Estimated Glomerular Filt Rate > 60; Glucose 364 mg/dL (65-110); Hemoglobin A1C > 14.0 % (<5.7); Magnesium 1.7 mg/dL (1.6-2.3); Potassium 5.1 mmol/L (3.4-5.0); Sodium 131 mmol/L (137-145)
[2025-02-23] VITALS (10 sets, daily range): BP systolic 121–124; BP diastolic 81–91; PULSE 78–93; RESP 16–20; TEMP 36–37; O2SAT 100; BMI 22.4
[2025-02-23] MEDS: metroNIDAZOLE 500 MG/ISO 100ML 500 MG/100 ML BAG 100 MG IVPB ×3 (00:59→20:21)
[2025-02-23] MEDS: CEFEPIME 2 GM/NS 50 ML 2 GM/50 ML BAG IVPB ×2 (04:04→16:51)
[2025-02-23] MEDS: VANCOMYCIN 1,500 MG/NS 500 ML 1,500 MG/500 ML BAG 250 MG IVPB ×2 (05:36→17:20)
[2025-02-23] MEDS: NICOTINE (*PBKC) 21 MG PATCH 1 PATCH TRANSDERM (05:37)
[2025-02-23 06:35] LABS: Basophils Absolute Auto 0.1 K/mm3 (0.0-0.1); Basophils Percent Auto 0.7 % (0.2-1.2); Eosinophils Absolute Auto 0.3 K/mm3 (0-0.3); Eosinophils Percent Auto 2.5 % (0-4.4); Hematocrit 41.3 % (42.0-52.0); Hemoglobin 13.2 g/dL (14.0-18.0); Immature Granulocyte Absolute 0.15 K/mm3 (0.00-0.031); Immature Granulocyte Percent A 1.2 % (0-0.5); Lymphocytes Absolute Auto 3.09 K/mm3 (0.9-3.2); Lymphocytes Percent Auto 24.7 % (18.3-44.2); Mean Corpuscular Hemoglobin 29.2 pg (26-34); Mean Corpuscular Volume 91.4 fl (80-100); Mean Platelet Volume 10.3 fl (7.4-10.4); Monocytes Percent Auto 7.7 % (2.6-8.5); Neutrophils Absolute Auto 7.9 K/mm3 (1.3-6.7); Neutrophils Percent Auto 63.2 % (45.5-73.1); Platelet Count Result 452 k/mm3 (150-375); Red Blood Count 4.52 M/mm3 (4.6-6.20); Red Cell Distribution Width 13.2 % (11.5-14.5); White Blood Count 12.5 K/mm3 (4.5-10.0)
[2025-02-23 07:00] LABS: Alanine Aminotransferase 22 U/L (6-50); Albumin Level 3.3 g/dL (3.5-5.1); Alkaline Phosphatase 93 U/L (38-126); Anion Gap 6 mmol/L (4-12); Aspartate Amino Transferase 21 U/L (17-59); Bilirubin,Total 0.4 mg/dL (0.2-1.3); Blood Urea Nitrogen 11 mg/dL (9-20); Calcium 8.5 mg/dL (8.4-10.2); Carbon Dioxide 23 mmol/L (22-30); Chloride 103 mmol/L (98-107); Estimated CRCL calculation 123 ml/min; Estimated Glomerular Filt Rate > 60; Glucose 258 mg/dL (65-110); Potassium 4.4 mmol/L (3.4-5.0); Sodium 132 mmol/L (137-145); Total Protein 6.6 g/dL (6.3-8.2)
[2025-02-23 08:08] LABS: Glucose Point of Care 203 mg/dl (65-105)
[2025-02-23] MEDS: SODIUM CHLORIDE 0.9% IV 1,000 ML 125 ML IV CONT (09:17)
[2025-02-23 11:55] LABS: Glucose Point of Care 188 mg/dl (65-105)
--- NOTE | 2025-02-23 12:38 | PM.PNGS ---
Progress Note: A&P Assessment and Plan (1) Diabetic ulcer of right great toe: Code(s): E11.621 - Type 2 diabetes mellitus with foot ulcer; L97.519 - Non-pressure chronic ulcer of other part of right foot with unspecified severity Status: Acute Assessment and Plan: Wet gangrenous right great toe diabetic ulcer on the dorsal aspect with evidence of osteomyelitis of the base of the distal phalanx on plain films. The wound is extensive with minimal viable tissue remaining of the great plantar aspect of the toe. He will require right great toe amputation, which was discussed with the patient. If blood glucose is under control, he will proceed with surgery tomorrow morning. NPO at midnight. [facility] teaching diabetes education to patient upon visit today. Continue broad-spectrum IV antibiotics for diabetic foot wound. Continue local wound care with Betadine dressing changes q.12 hours. (2) Osteomyelitis: Qualifiers: Laterality: right Osteomyelitis location: foot Osteomyelitis type: chronic, with draining sinus Qualified Code(s): M86.471 - Chronic osteomyelitis with draining sinus, right ankle and foot Code(s): M86.9 - Osteomyelitis, unspecified Status: Acute Assessment and Plan: Continue IV antibiotics. See plan above. (3) Diabetes: Code(s): E11.9 - Type 2 diabetes mellitus without complications Status: Inactive Assessment and Plan: Management per hospitalist (4) Tobacco abuse: Code(s): Z72.0 - Tobacco use Status: Acute Plan I have discussed the patient's case and plan of care with Dr. Vasquez. Subjective Subjective Date/Time Seen: 02/23/25 12:38 Interval history: Patient unable to have surgery today due to elevated blood glucose readings. No acute events overnight. VSS. WBC 12.5. Exam Extrem: Right upper extremity: normal to inspection Left upper extremity: normal to inspection Right lower extremity: foot Details: vascular exam Details: dorsalis pedis pulse present (Palpable but weak) and normal capillary refill (Foot warm); posterior tibial pulse absent, not cool and no cyanosis Left lower extremity: normal to inspection Other: Right great toe ulcer on the dorsal aspect of the great toe extending below the webbing of his toes and extending to the first MTP joint. The ulcer extends both medially and laterally on both sides of his toe towards the plantar aspect, including about 75% circumference of his toe. The entire wound is covered by a soft black eschar. No purulent drainage noted today. There are 2 areas where bone is obviously exposed at the distal phalanx and proximal phalanx on the dorsal foot. The wound measures about 6 x 6 x 1 cm. There is trace edema of the right foot, but no spreading erythema down the forefoot past the wound. He has good sensation of his right foot. He is able to wiggle his toes and has full range of motion of his ankle. Objective Data Vital Signs Vital Signs: Vital Signs - 24 hr 02/22/25 14:15 02/22/25 14:30 02/22/25 15:30 Temperature 97.6 F Pulse Rate 117 H 111 H 103 H Respiratory Rate 18 15 19 Blood Pressure 128/99 H 128/99 H 125/93 H Pulse Oximetry 100 100 100 Oxygen Delivery 02/22/25 16:30 02/22/25 17:30 02/22/25 18:36 Temperature Pulse Rate 100 97 92 Respiratory Rate 18 18 18 Blood Pressure 142/98 H 136/90 156/96 H Pulse Oximetry 100 100 100 Oxygen Delivery 02/22/25 18:50 02/22/25 20:00 02/22/25 21:16 Temperature 96.3 F L 96.6 F L Pulse Rate 88 88 Respiratory Rate 16 16 Blood Pressure 129/80 131/80 Pulse Oximetry 99 100 Oxygen Delivery Room Air 02/23/25 00:00 02/23/25 04:00 02/23/25 05:46 Temperature 96.8 F L Pulse Rate 78 83 81 Respiratory Rate 16 Blood Pressure 122/81 Pulse Oximetry 100 Oxygen Delivery 02/23/25 08:00 02/23/25 08:00 Temperature Pulse Rate 81 Respiratory Rate Blood Pressure Pulse Oximetry Oxygen Delivery Room Air Intake/Output Intake/Output: Intake & Output 02/20/25 02/21/25 02/22/25 02/23/25 23:59 23:59 23:59 23:59 Intake Total 1150 1150.0 Balance 1150 1150.0 Meds/Results Medications: Active Medications Generic Name Dose Route Start Last Admin Trade Name Freq PRN Reason Stop Dose Admin Dextrose 12.5 gm 02/22/25 19:59 Dextrose 50% 25 Gm/50 Ml Syringe IV PUSH PRN PRN Hypoglycemia Protocol Enoxaparin Sodium 40 mg 02/23/25 09:00 02/23/25 09:13 Enoxaparin 40 Mg/0.4 Ml Syringe SUB-Q Not Given DAILY ADAM Glucagon 1 mg 02/22/25 19:59 Glucagon For Inj 1 Mg Vial IM PRN PRN Hypoglycemia Protocol Glucose 15 gm 02/22/25 19:59 Glucose Oral Gel 15 Gm Of Glucse In 37.5 Gm Tube PO PRN PRN Hypoglycemia Protocol Cefepime HCl 2 gm in 50 mls @ 100 mls/hr 02/22/25 16:00 02/23/25 04:34 Maxipime 2 Gm/Ns 50 Ml IVPB Infused Q12H ADAM Infusion Metronidazole 500 mg in 100 mls @ 100 mls/hr 02/22/25 18:00 02/23/25 09:18 Flagyl 500 Mg/Iso Soln 100 Ml IVPB 100 mls/hr Q8H ADAM Administration Vancomycin HCl 1,500 mg in 500 mls @ 250 mls/hr 02/23/25 05:00 02/23/25 05:36 Vancomycin 1,500 Mg/Ns 500 Ml IVPB 250 mls/hr Q12H ADAM Administration Dextrose 1,000 mls @ 100 mls/hr 02/22/25 19:59 Dextrose 5% 1,000 Ml IVPB PRN PRN Hypoglycemia Protocol Sodium Chloride 1,000 mls @ 125 mls/hr 02/22/25 20:00 02/23/25 09:17 Normal Saline Iv IV CONT 125 mls/hr .Q8H ADAM Administration Insulin Aspart 3 - 6 units 02/23/25 08:00 02/23/25 11:58 Insulin Aspart (*Bkc) 100 Units/Ml SUB-Q Not Given TIDWM [facility] Protocol Insulin Aspart 1 - 3 units 02/22/25 21:00 02/22/25 21:11 Insulin Aspart (*Bkc) 100 Units/Ml SUB-Q 2 units HS ADAM Administration Protocol Insulin Glargine 15 units 02/22/25 21:00 02/22/25 21:10 Insulin Glargine (*Bkc) 100 Units/Ml SUB-Q 15 units HS ADAM Administration Nicotine 1 patch 02/22/25 21:04 02/23/25 05:37 Nicotine (*Pbkc) 21 Mg Patch TRANSDERM 1 patch DAILY PRN Administration Nicotine withdrawal Radiology Results: ITS Impressions Foot X-Ray 02/22/25 14:48 IMPRESSION: 1. Osteomyelitis with cortical erosion and osteomyelitis at the medial base of the right first distal phalanx. Labs Labs: Laboratory Results - last 24 hr 02/22/25 02/22/25 02/22/25 14:32 16:40 16:57 WBC 12.3 H RBC 5.25 Hgb 15.3 Hct 46.6 MCV 88.8 MCH 29.1 MCHC 32.8 RDW 13.2 Plt Count 557 H MPV 10.5 H Immature Gran % (Auto) 1.0 H Neut % (Auto) 66.2 Lymph % (Auto) 25.3 [place] % (Auto) 6.2 Eos % (Auto) 0.6 Baso % (Auto) 0.7 Lymph # (Auto) 3.11 [place] # (Auto) 0.8 H Eos # (Auto) 0.1 Baso # (Auto) 0.1 Abs Immat Gran (auto) 0.12 H Absolute Neuts (auto) 8.1 H Absolute Nucleated RBC 0.000 Nucleated RBC % 0.0 PT 13.7 INR 1.0 APTT 31.5 Sodium 128 L Potassium 4.8 Chloride 95 L Carbon Dioxide 20 L Anion Gap 13 H BUN 18 Creatinine 0.82 Estim Creat Clear Calc 105 Estimated GFR > 60 Glucose 617 H* POC Capillary Glucose 299 H Hemoglobin A1c Lactic Acid 2.6 H 1.8 Calcium 9.4 Magnesium Total Bilirubin 0.7 AST 27 ALT 34 Alkaline Phosphatase 134 H C-Reactive Protein 1.3 H Total Protein 8.0 Albumin 4.0 02/22/25 02/22/25 02/23/25 20:07 21:11 06:19 WBC 12.5 H RBC 4.52 L Hgb 13.2 L Hct 41.3 L MCV 91.4 MCH 29.2 MCHC 32.0 RDW 13.2 Plt Count 452 H MPV 10.3 Immature Gran % (Auto) 1.2 H Neut % (Auto) 63.2 Lymph % (Auto) 24.7 [place] % (Auto) 7.7 Eos % (Auto) 2.5 Baso % (Auto) 0.7 Lymph # (Auto) 3.09 [place] # (Auto) 1.0 H Eos # (Auto) 0.3 Baso # (Auto) 0.1 Abs Immat Gran (auto) 0.15 H Absolute Neuts (auto) 7.9 H Absolute Nucleated RBC 0.000 Nucleated RBC % 0.0 PT INR APTT Sodium 131 L 132 L Potassium 5.1 H 4.4 Chloride 100 103 Carbon Dioxide 24 23 Anion Gap 7 6 BUN 15 11 Creatinine 0.74 0.69 L Estim Creat Clear Calc 115 123 Estimated GFR > 60 > 60 Glucose 364 H 258 H POC Capillary Glucose 253 H Hemoglobin A1c > 14.0 H Lactic Acid Calcium 8.8 8.5 Magnesium 1.7 Total Bilirubin 0.4 AST 21 ALT 22 Alkaline Phosphatase 93 C-Reactive Protein Total Protein 6.6 Albumin 3.3 L 02/23/25 02/23/25 08:02 11:43 WBC RBC Hgb Hct MCV MCH MCHC RDW Plt Count MPV Immature Gran % (Auto) Neut % (Auto) Lymph % (Auto) [place] % (Auto) Eos % (Auto) Baso % (Auto) Lymph # (Auto) [place] # (Auto) Eos # (Auto) Baso # (Auto) Abs Immat Gran (auto) Absolute Neuts (auto) Absolute Nucleated RBC Nucleated RBC % PT INR APTT Sodium Potassium Chloride Carbon Dioxide Anion Gap BUN Creatinine Estim Creat Clear Calc Estimated GFR Glucose POC Capillary Glucose 203 H 188 H Hemoglobin A1c Lactic Acid Calcium Magnesium Total Bilirubin AST ALT Alkaline Phosphatase C-Reactive Protein Total Protein Albumin
[2025-02-23 16:46] LABS: Glucose Point of Care 261 mg/dl (65-105)
[2025-02-23] MEDS: INSULIN ASPART (*BKC) 100 UNITS/ML SUB-Q ×2 (17:20→20:41)
--- NOTE | 2025-02-23 17:46 | P.PNIM_ITS ---
Progress Note: A&P Assessment and Plan (1) Diabetic ulcer of right great toe: Code(s): E11.621 - Type 2 diabetes mellitus with foot ulcer; L97.519 - Non-pressure chronic ulcer of other part of right foot with unspecified severity Status: Acute (2) Osteomyelitis: Qualifiers: Laterality: right Osteomyelitis location: foot Osteomyelitis type: chronic, with draining sinus Qualified Code(s): M86.471 - Chronic osteomyelitis with draining sinus, right ankle and foot Code(s): M86.9 - Osteomyelitis, unspecified Status: Acute (3) Type 2 diabetes mellitus with hyperglycemia, without long-term current use of insulin: Code(s): E11.65 - Type 2 diabetes mellitus with hyperglycemia Status: Acute (4) Diabetic peripheral neuropathy: Code(s): E11.42 - Type 2 diabetes mellitus with diabetic polyneuropathy Status: Acute (5) Tobacco abuse: Code(s): Z72.0 - Tobacco use Status: Acute Plan Osteomyelitis of great toe Continue cefepime Flagyl and vancomycin Follow cultures NPO after midnight for possible surgery tomorrow Uncontrolled diabetes SSRI could check Lantus and lispro Continue to monitor tobacco abuse nicotin patch Subjective Date/time seen: 02/23/25 17:46 Interval history: per hPI: 49-year-old male with a past medical history of PTSD, anxiety, tobacco abuse and diabetes who did not follow-up with care it does not take any diabetic medications who presented to the ER with a chronic wound to his right great toe. The patient reports that he has had a wound to his right great toe for about 2 months or so. He stated that he actually got a blister on his opposite toe and he thinks that he was walking funny to compensate for the blister on his right toe when he developed a wound to his left toe. He reports that the wound is painful if he is up and walking but is relatively minor pain if he is resting with his leg elevated. Over the last 2 weeks the wound has acutely worsened and is developed large area of necrosis to the top of the toe with purulence drainage and erythema more proximal into the foot. He denies any fevers or chills. He does have symptoms of neuropathy but denies a prior diagnosis. He states that he was initially told the had diabetes in August when he was evaluated at [place]. He states that he was hospitalized there but then left AMA due to his PTSD. He states he is often ?difficult to deal with?. He has had about 1 month of increased polydipsia, polyuria and polyphagia from baseline. He reports that he always feels thirsty. He denies any dysuria year hematuria. He has noticed an acute change in his vision over the last month with increased blurry vision although he states that his vision is not good at baseline. He has not seen an eye doctor in many years. He does have chronic dental caries with multiple teeth broken off at the gumline but denies any current oral infections or pain. He reports unintentional weight loss of about 100 lb over the last 2-2 and half years. I suspect that he likely has had diabetes for this time. In this is resulted in his weight loss. In the ER patient's glucoses were noted to be in 600. Patient had a gangrenous appearing great toe. His labs also demonstrated leukocytosis without neutrophil predominance, pseudo hyponatremia with sodium of 128, hypochloremia and mildly decreased serum bicarb at 20 with mildly elevated anion gap at 13. He received 1 L fluid bolus in the ER and 10 units of IV insulin. His repeat glucose was down to 299. His CRP was mildly elevated 1.3. X-ray of the foot demonstrated osteomyelitis with cortical erosion and osteomyelitis at the medial base of the right 1st distal phalanx. Blood cultures were obtained. Patient was evaluated by General surgery and the patient was admitted for further treatment. 02/23/25 Patient was seen and examined at bedside. he Is complaining of right great toe pain. Denies any chest pain, shortness of breath, abd pain, nausea vomiting. surgery team on board. Plan for surgery tomorrow blood sugar under better control. Continue with IV antibiotics Review of Systems Review of Systems: 12 systems were reviewed with pertinent positives and negatives per HPI. Except as documented in the HPI, all other systems were reviewed and are negative. Exam Narrative: Weight 77 kg BMI 22.4 Const: Other: No acute distress, well-developed well-nourished, disheveled HENMT: Other: Mucous membranes are moist, no oral pharyngeal erythema, head is normocephalic atraumatic, poor dentition with multiple teeth broken off at the gumline in numerous dental caries Eyes: Other: Pupils are equal and reactive, extraocular movements intact, no scleral icterus Neck: Other: No JVD, no lymphadenopathy Resp: Other: Clear to auscultation bilaterally, no increased work of breathing Cardio: Other: Regular rate, regular rhythm, 2+ bilateral radial pedal pulses GI: Other: Soft, nontender, nondistended, positive bowel sounds Skin: Other: No jaundice, no pallor, large necrotic wound over the dorsal aspect of the right great toe Neuro: Other: Alert oriented, speech is clear, no facial asymmetry, no localizing neurologic deficits noted during the course of conversation Extrem: Other: No clubbing, cyanosis, large necrotic wound to the dorsal surface of the right great toe extending into the forefoot with erythema more proximal to the wound, complete destruction of the nail bed of the great toe, no wounds noted to the other toes, mild edema of the forefoot more notably to the medial side Psych: Other: Anxious, restless, otherwise pleasant and cooperative, fair judgment and insight Objective Data Vital Signs Vital Signs: Vital Signs - 24 hr 02/22/25 18:36 02/22/25 18:50 02/22/25 20:00 Temperature 96.3 F L Pulse Rate 92 88 Respiratory Rate 18 16 Blood Pressure 156/96 H 129/80 Pulse Oximetry 100 99 Oxygen Delivery Room Air 02/22/25 21:16 02/23/25 00:00 02/23/25 04:00 Temperature 96.6 F L Pulse Rate 88 78 83 Respiratory Rate 16 Blood Pressure 131/80 Pulse Oximetry 100 Oxygen Delivery 02/23/25 05:46 02/23/25 08:00 02/23/25 08:00 Temperature 96.8 F L Pulse Rate 81 81 Respiratory Rate 16 Blood Pressure 122/81 Pulse Oximetry 100 Oxygen Delivery Room Air 02/23/25 12:00 02/23/25 14:00 02/23/25 16:00 Temperature 98.6 F Pulse Rate 80 86 86 Respiratory Rate 18 Blood Pressure 124/91 H Pulse Oximetry 100 Oxygen Delivery Intake/Output Intake/Output: Intake & Output 02/20/25 02/21/25 02/22/25 02/23/25 23:59 23:59 23:59 23:59 Intake Total 1150 1650.0 Balance 1150 1650.0 Meds/Results Medications: Active Medications Generic Name Dose Route Start Last Admin Trade Name Freq PRN Reason Stop Dose Admin Dextrose 12.5 gm 02/22/25 19:59 Dextrose 50% 25 Gm/50 Ml Syringe IV PUSH PRN PRN Hypoglycemia Protocol Enoxaparin Sodium 40 mg 02/23/25 09:00 02/23/25 09:13 Enoxaparin 40 Mg/0.4 Ml Syringe SUB-Q Not Given DAILY ADAM Glucagon 1 mg 02/22/25 19:59 Glucagon For Inj 1 Mg Vial IM PRN PRN Hypoglycemia Protocol Glucose 15 gm 02/22/25 19:59 Glucose Oral Gel 15 Gm Of Glucse In 37.5 Gm Tube PO PRN PRN Hypoglycemia Protocol Cefepime HCl 2 gm in 50 mls @ 100 mls/hr 02/22/25 16:00 02/23/25 16:51 Maxipime 2 Gm/Ns 50 Ml IVPB 100 mls/hr Q12H ADAM Administration Metronidazole 500 mg in 100 mls @ 100 mls/hr 02/22/25 18:00 02/23/25 09:18 Flagyl 500 Mg/Iso Soln 100 Ml IVPB 100 mls/hr Q8H ADAM Administration Vancomycin HCl 1,500 mg in 500 mls @ 250 mls/hr 02/23/25 05:00 02/23/25 17:20 Vancomycin 1,500 Mg/Ns 500 Ml IVPB 250 mls/hr Q12H ADAM Administration Dextrose 1,000 mls @ 100 mls/hr 02/22/25 19:59 Dextrose 5% 1,000 Ml IVPB PRN PRN Hypoglycemia Protocol Sodium Chloride 1,000 mls @ 125 mls/hr 02/22/25 20:00 02/23/25 13:21 Normal Saline Iv IV CONT Not Given .Q8H ADAM Insulin Aspart 3 - 6 units 02/23/25 08:00 02/23/25 17:20 Insulin Aspart (*Bkc) 100 Units/Ml SUB-Q 4 units TIDWM ADAM Administration Protocol Insulin Aspart 1 - 3 units 02/22/25 21:00 02/22/25 21:11 Insulin Aspart (*Bkc) 100 Units/Ml SUB-Q 2 units HS ADAM Administration Protocol Insulin Glargine 15 units 02/22/25 21:00 02/22/25 21:10 Insulin Glargine (*Bkc) 100 Units/Ml SUB-Q 15 units HS ADAM Administration Nicotine 1 patch 02/22/25 21:04 02/23/25 05:37 Nicotine (*Pbkc) 21 Mg Patch TRANSDERM 1 patch DAILY PRN Administration Nicotine withdrawal Radiology Results: ITS Impressions Foot X-Ray 02/22/25 14:48 IMPRESSION: 1. Osteomyelitis with cortical erosion and osteomyelitis at the medial base of the right first distal phalanx. Labs Labs: Laboratory Results - last 24 hr 02/22/25 02/22/25 02/23/25 20:07 21:11 06:19 WBC 12.5 H RBC 4.52 L Hgb 13.2 L Hct 41.3 L MCV 91.4 MCH 29.2 MCHC 32.0 RDW 13.2 Plt Count 452 H MPV 10.3 Immature Gran % (Auto) 1.2 H Neut % (Auto) 63.2 Lymph % (Auto) 24.7 Harlan % (Auto) 7.7 Eos % (Auto) 2.5 Baso % (Auto) 0.7 Lymph # (Auto) 3.09 Harlan # (Auto) 1.0 H Eos # (Auto) 0.3 Baso # (Auto) 0.1 Abs Immat Gran (auto) 0.15 H Absolute Neuts (auto) 7.9 H Absolute Nucleated RBC 0.000 Nucleated RBC % 0.0 Sodium 131 L 132 L Potassium 5.1 H 4.4 Chloride 100 103 Carbon Dioxide 24 23 Anion Gap 7 6 BUN 15 11 Creatinine 0.74 0.69 L Estim Creat Clear Calc 115 123 Estimated GFR > 60 > 60 Glucose 364 H 258 H POC Capillary Glucose 253 H Hemoglobin A1c > 14.0 H Calcium 8.8 8.5 Magnesium 1.7 Total Bilirubin 0.4 AST 21 ALT 22 Alkaline Phosphatase 93 Total Protein 6.6 Albumin 3.3 L 02/23/25 02/23/25 02/23/25 08:02 11:43 16:41 WBC RBC Hgb Hct MCV MCH MCHC RDW Plt Count MPV Immature Gran % (Auto) Neut % (Auto) Lymph % (Auto) Harlan % (Auto) Eos % (Auto) Baso % (Auto) Lymph # (Auto) Harlan # (Auto) Eos # (Auto) Baso # (Auto) Abs Immat Gran (auto) Absolute Neuts (auto) Absolute Nucleated RBC Nucleated RBC % Sodium Potassium Chloride Carbon Dioxide Anion Gap BUN Creatinine Estim Creat Clear Calc Estimated GFR Glucose POC Capillary Glucose 203 H 188 H 261 H Hemoglobin A1c Calcium Magnesium Total Bilirubin AST ALT Alkaline Phosphatase Total Protein Albumin Quality VTE Prophylaxis VTE prophylaxis: pharmacologic ordered (Lovenox 40 mg subQ daily.)
[2025-02-23] MEDS: INSULIN GLARGINE (*BKC) 100 UNITS/ML 18 UNITS SUB-Q (20:40)
[2025-02-23 21:12] LABS: Glucose Point of Care 301 mg/dl (65-105)
[2025-02-24] VITALS (15 sets, daily range): BP systolic 115–144; BP diastolic 76–96; PULSE 69–92; RESP 15–21; TEMP 36.2–36.4; O2SAT 95–100
[2025-02-24] MEDS: metroNIDAZOLE 500 MG/ISO 100ML 500 MG/100 ML BAG 100 MG IVPB ×2 (01:59→17:25)
[2025-02-24] MEDS: CEFEPIME 2 GM/NS 50 ML 2 GM/50 ML BAG IVPB ×2 (03:28→17:23)
[2025-02-24] MEDS: SODIUM CHLORIDE 0.9% IV 1,000 ML 125 ML IV CONT ×2 (03:29→14:34)
[2025-02-24 04:19] LABS: Hematocrit 39.6 % (42.0-52.0); Hemoglobin 13.1 g/dL (14.0-18.0); Mean Corpuscular HGB Conc 33.1 g/dl (32-36); Mean Corpuscular Hemoglobin 29.4 pg (26-34); Mean Corpuscular Volume 88.8 fl (80-100); Mean Platelet Volume 9.9 fl (7.4-10.4); Platelet Count Result 446 k/mm3 (150-375); Red Blood Count 4.46 M/mm3 (4.6-6.20); Red Cell Distribution Width 13.2 % (11.5-14.5)
[2025-02-24 04:57] LABS: Anion Gap 6 mmol/L (4-12); Blood Urea Nitrogen 11 mg/dL (9-20); Calcium 8.8 mg/dL (8.4-10.2); Carbon Dioxide 22 mmol/L (22-30); Chloride 106 mmol/L (98-107); Estimated CRCL calculation 144 ml/min; Estimated Glomerular Filt Rate > 60; Glucose 163 mg/dL (65-110); Sodium 134 mmol/L (137-145)
[2025-02-24 05:01] LABS: Vancomycin Trough 7.8 ug/mL (10.0-20.0)
[2025-02-24] MEDS: VANCOMYCIN 1,750 MG/NS 500 ML 1,750 MG/500 ML BAG 250 MG IVPB ×3 (05:33→21:52)
--- NOTE | 2025-02-24 07:47 | WPDHPUPDATE1 ---
History and Physical Update Update Date/Time: 02/24/25 07:47 History and Physical has been reviewed, including an updated exam of the patient. There are NO changes in the patient's condition. Risks, benefits, and alternatives have been discussed and questions answered. Patient agrees to proceed with procedure. Glucose levels are in the 150s today. Will proceed with amputation right great toe this am.
--- NOTE | 2025-02-24 08:08 | P.PNAN_ITS ---
Anes - Initial Pre Proc Eval Procedure: Operation Date: 02/24/25 08:00 Proposed Procedures p Ray Amputation Right Great Toe - Keyshawn Vasquez MD Date/Time: 02/24/25 08:08 Surgeon: Anton Pascal MD Pre Op Diagnosis: Osteomyelitis/Hyperglycemia Patient Data Age: 49 Gender: M Height: 1.85 m Weight: 77 kg Last Vital Signs Temp 36.2 C L 02/24/25 05:54 Pulse 80 02/24/25 05:54 Resp 20 02/24/25 05:54 BP 127/85 02/24/25 05:54 Pulse Ox 99 02/24/25 05:54 O2 Del Method Room Air 02/23/25 08:00 Allergies Allergy/AdvReac Type Severity Reaction Status Date / Time No Known Allergies Allergy Unverified 11/04/18 09:01 Home Medications ?Medication ?Instructions ?Recorded ?Confirmed ?Type No Home Medications 02/22/25 02/22/25 History Laboratory Tests 02/23/25 02/23/25 02/23/25 08:02 11:43 16:41 WBC RBC Hgb Hct MCV MCH MCHC RDW Plt Count MPV Sodium Potassium Chloride Carbon Dioxide Anion Gap BUN Creatinine Estim Creat Clear Calc Estimated GFR Glucose POC Capillary Glucose 203 H mg/dl 188 H mg/dl 261 H mg/dl (65-105) (65-105) (65-105) Calcium Vancomycin Trough 02/23/25 02/24/25 20:22 04:15 WBC 11.0 H K/mm3 (4.5-10.0) RBC 4.46 L M/mm3 (4.6-6.20) Hgb 13.1 L g/dL (14.0-18.0) Hct 39.6 L % (42.0-52.0) MCV 88.8 fl (80-100) MCH 29.4 pg (26-34) MCHC 33.1 g/dl (32-36) RDW 13.2 % (11.5-14.5) Plt Count 446 H k/mm3 (150-375) MPV 9.9 fl (7.4-10.4) Sodium 134 L mmol/L (137-145) Potassium 4.0 mmol/L (3.4-5.0) Chloride 106 mmol/L (98-107) Carbon Dioxide 22 mmol/L (22-30) Anion Gap 6 mmol/L (4-12) BUN 11 mg/dL (9-20) Creatinine 0.58 L mg/dL (0.7-1.3) Estim Creat Clear Calc 144 ml/min Estimated GFR > 60 (59 - ) Glucose 163 H mg/dL (65-110) POC Capillary Glucose 301 H mg/dl (65-105) Calcium 8.8 mg/dL (8.4-10.2) Vancomycin Trough 7.8 L ug/mL (10.0-20.0) Patient hx anesthesia problems: none Family hx anesthesia problems: none Results Review: All pre-operative results and documents have been reviewed as part of the pre- operative evaluation. [facility] Past Medical History Medical History (Updated 02/22/25 @ 21:01 by Linda Linder DO) PTSD (post-traumatic stress disorder) ADHD Glaucoma Diabetes Tobacco abuse Surgical History Surgical History (Updated 02/23/25 @ 00:04 by Linda Linder DO) No history of previous surgery Family History Family History (Updated 02/23/25 @ 00:21 by Linda Linder DO) Father Diabetes mellitus Suicide by drug overdose, Onset Age: 45 Of insulin Depression Mother Diabetes mellitus Social History Social History (Updated 02/23/25 @ 00:22 by Linda Linder DO) Social History: Patient currently lives with a friend. He is single and never been . He has smoked up to a pack of cigarettes per day and started smoking when he was 25. He has cut back to 0.5 packs of cigarettes per day for the last 5 months. He drinks alcohol on rare occasion and only in moderation. Does have a history of experimenting with multiple drugs in the past including cocaine many years ago. He states that he still smokes methamphetamines on an intermittent basis. He smokes marijuana somewhat frequently. The patient reports he is not in contact with his mother. His father when he was young due to overdose of insulin in order to get attention from his mother. Code status: Full code Surrogate decision maker: Andrew Santoyo (friend) Smoking packs per day: 1 Smoking cigarettes per day: 20.0 Years smoked: 24 Smoking pack-years: 24.00 Smoking status: Current every day smoker Alcohol intake: current Alcohol use details: Fair couple of times a year in small amounts. Substance use: current Substance use type: amphetamines and methamphetamine Other substance usage details: Cocaine many years ago. Marijuana frequently Last use: 02/18/2025 Do You Feel Safe in your Home?: Yes Lack of Transportation: No Lack of Food: Often True Current Housing: I Have Housing Concerned About Future Housing: YES Difficulty Paying Gas/Electric Bills: No Difficulty Paying for Meds: YES Currently Unemployed: No Education: High School Diploma/GED Difficulty w/ Childcare or Family Care: No Living arrangements: with friend(s) Additional occupation/education comments: He works [employer]. Spiritual care concerns: No Anes - Eval Final PreProcedure Day of Procedure 02/24/25 08:08 Patient weight: normal Heart: regular rate and rhythm Lungs: clear to auscultation Airway: Mallampati scale class II Neurological: alert and oriented Last oral intake: >/= 8 hours ASA classification: III Emergent: no Anesthetic plan: proceed Anesthesia type and monitoring: general LMA and standard monitoring Results Review: All pre-operative results and documents have been reviewed as part of the pre- operative evaluation. Informed Consent: The patient's anesthetic plan and its attendant risks and benefits were discussed with the patient/family/POA. Questions were solicited and answers provided to the satisfaction of the patient/family/POA.
--- NOTE | 2025-02-24 08:23 | S_PTH ---
PATIENT: Brian Watson LOC: [id number] U#:[id number] AGE/SX: 49/M ROOM: 327 RE02/22/[address]: Anton Pascal MD : 1975 BED: 01 DIS: 02/27/2025 SPEC #: [id number] RECD: 02/26/25 07:57 STATUS: GILLIANYang RESirisha #: [id number] YOLA: 02/24/25 08:[address]: Keyshawn Vasquez DEPT: [facility] Surgical RECD BY: Paris Underwood ENTERED: 02/26/25 07:58 SP TYPE: Surgical OTHR DR: MD Lebron Orantes MD UNKNOWN,DOCTOR Tissues: A - Toe Procedures: Hematoxylin and Eosin Stain Gross and Microscopic Level 4 Decalcification
[2025-02-24] MEDS: BUPivacaine HCL 0.5% PF 30 ML VIAL INFILTRATE (08:31)
[2025-02-24] MEDS: LIDOCAINE 1% LOCAL INJ 20 ML VIAL INFILTRATE (08:32)
[2025-02-24] MEDS: LACTATED RINGERS 1,000 ML 30 ML IV CONT (09:05)
--- NOTE | 2025-02-24 09:11 | P.OP_ITS ---
Procedure Note - Detailed Date of Procedure 02/24/25 Pre-op Diagnosis Gangrene and Osteomyelitis right great toe, insulin-dependent diabetes mellitus Post-op Diagnosis Same Procedure Performed Ray amputation right great toe. Surgeon Keyshawn Vasquez MD Patient Accounts Clerk EDWIN Mehta Anesthesia General Indications Patient is a noncompliant diabetic who started has not seen his primary care doctor for management of his diabetes. He does not take any diabetic medications. He presented to the emergency room with a right great toe ulcer and gangrene with osteomyelitis on x-ray. Cellulitis of the great toe extending to the right forefoot. His blood sugars were 617 on admission. Presents for ray amputation right great toe. Findings Patient had extensive soft tissue loss with exposure of the distal phalanx of the right great toe on the dorsal surface. There was some mild erythema surrounding the right forefoot at the metatarsophalangeal joint. Upon amputation through the metatarsophalangeal joint of the right great toe the head of the right 1st metatarsal appeared to be healthy without any erosion or osteomyelitis. The head of the right 1st metatarsal was with the ray amputation of the toe. All the remaining tissue appeared to be viable. There was good bleeding from the tissue edges. The remaining 4 toes in the right foot appeared to be viable without any new wounds. Description of Procedure After informed consent was obtained patient brought to the operating room where he was placed supine position and general LMA anesthesia was administered. The right lower extremity from the mid tibia distal was then prepped and draped in usual sterile fashion. 1% lidocaine mixed with 0.5% Marcaine was then injected around the base of the right great toe. I then made a circumferential incision around the base of the right great toe with a scalpel extending deeply down through the dermis skin. I divided the extensor tendon to the right great toe and then entered the metatarsophalangeal joint space. I then amputated the toe through the joint space sharply with a scalpel and scissor dissection. The toe was then passed off table to pathology. I then extended the incision on the medial aspect of the right foot over the 1st metatarsal head and shaft. I dissected down to the periosteum of the bone which appeared to be normal without erosion or evidence of osteomyelitis. I then used a periosteal elevator to get down to just the bone and then used a manic bone saw to divide the metatarsal and angle to resect the head of the metatarsal. The right 1st metatarsal head was then sent to pathology with the toe. I then irrigated out the incision sterile saline solution hemostasis was good and there was good bleeding from the tissue edges. I then used a rasp to soften the edges on the end of the cut edge of the metatarsal. All the suture was now viable and so I proceeded to partially close the incision utilizing interrupted 2-0 nylon sutures to approximate the edges of the skin and tissue. The remaining opening wound measured approximately 2x3cm. Extended all the way down to the cut and of the metatarsal. The wound was then packed with quarter-inch iodoform gauze and then covered with dry fluffed 4x4 gauze, wrapped within the Kerlix gauze, and then wrapped with a 4in Roman wrap. The patient tolerated the procedure well no complications. All sponges, needles, and instrument counts were correct at the end procedure. EBL was _20__cc. The patient was awakened and taken to recovery in stable and satisfactory condition. Implants None Estimated Blood Loss 20 Packing Yes (Quarter-inch iodoform gauze to right foot great toe amputation wound) Pathology Yes (Right great toe and head of the right 1st metatarsal to pathology) Complications No immediate complications Condition Stable Disposition PACU [facility] Billing Surgery - Charge Forward: Surgery Billing
[2025-02-24 09:24] LABS: Glucose Point of Care 150 mg/dl (65-105)
[2025-02-24 12:03] LABS: Glucose Point of Care 158 mg/dl (65-105)
[2025-02-24] MEDS: INSULIN ASPART (*BKC) 100 UNITS/ML SUB-Q ×4 (12:32→21:45)
[2025-02-24] MEDS: HYDROcodone/acetaminophen (*CRX) 5-325 MG TABLET 1 TAB PO ×3 (13:19→21:46)
--- NOTE | 2025-02-24 14:12 | P.PNIM_ITS ---
Progress Note: A&P Assessment and Plan (1) Diabetic ulcer of right great toe: Code(s): E11.621 - Type 2 diabetes mellitus with foot ulcer; L97.519 - Non-pressure chronic ulcer of other part of right foot with unspecified severity Status: Acute (2) Osteomyelitis: Qualifiers: Laterality: right Osteomyelitis location: foot Osteomyelitis type: chronic, with draining sinus Qualified Code(s): M86.471 - Chronic osteomyelitis with draining sinus, right ankle and foot Code(s): M86.9 - Osteomyelitis, unspecified Status: Acute (3) Type 2 diabetes mellitus with hyperglycemia, without long-term current use of insulin: Code(s): E11.65 - Type 2 diabetes mellitus with hyperglycemia Status: Acute (4) Diabetic peripheral neuropathy: Code(s): E11.42 - Type 2 diabetes mellitus with diabetic polyneuropathy Status: Acute (5) Tobacco abuse: Code(s): Z72.0 - Tobacco use Status: Acute Plan Osteomyelitis of great toe Continue cefepime Flagyl and vancomycin Follow cultures Status post right toe amputation 02/24/2025 Uncontrolled diabetes SSRI could check Lantus and lispro Continue to monitor tobacco abuse nicotin patch Subjective Date/time seen: 02/24/25 14:12 Interval history: per hPI: 49-year-old male with a past medical history of PTSD, anxiety, tobacco abuse and diabetes who did not follow-up with care it does not take any diabetic medications who presented to the ER with a chronic wound to his right great toe. The patient reports that he has had a wound to his right great toe for about 2 months or so. He stated that he actually got a blister on his opposite toe and he thinks that he was walking funny to compensate for the blister on his right toe when he developed a wound to his left toe. He reports that the wound is painful if he is up and walking but is relatively minor pain if he is resting with his leg elevated. Over the last 2 weeks the wound has acutely worsened and is developed large area of necrosis to the top of the toe with purulence drainage and erythema more proximal into the foot. He denies any fevers or chills. He does have symptoms of neuropathy but denies a prior diagnosis. He states that he was initially told the had diabetes in August when he was evaluated at [facility]. He states that he was hospitalized there but then left AMA due to his PTSD. He states he is often ?difficult to deal with?. He has had about 1 month of increased polydipsia, polyuria and polyphagia from baseline. He reports that he always feels thirsty. He denies any dysuria year hematuria. He has noticed an acute change in his vision over the last month with increased blurry vision although he states that his vision is not good at baseline. He has not seen an eye doctor in many years. He does have chronic dental caries with multiple teeth broken off at the gumline but denies any current oral infections or pain. He reports unintentional weight loss of about 100 lb over the last 2-2 and half years. I suspect that he likely has had diabetes for this time. In this is resulted in his weight loss. In the ER patient's glucoses were noted to be in 600. Patient had a gangrenous appearing great toe. His labs also demonstrated leukocytosis without neutrophil predominance, pseudo hyponatremia with sodium of 128, hypochloremia and mildly decreased serum bicarb at 20 with mildly elevated anion gap at 13. He received 1 L fluid bolus in the ER and 10 units of IV insulin. His repeat glucose was down to 299. His CRP was mildly elevated 1.3. X-ray of the foot demonstrated osteomyelitis with cortical erosion and osteomyelitis at the medial base of the right 1st distal phalanx. Blood cultures were obtained. Patient was evaluated by General surgery and the patient was admitted for further treatment. 02/23/25 surgery team on board. Plan for surgery tomorrow blood sugar under better control. Continue with IV antibiotics 02/24/25 Patient was seen and examined at bedside. Patient underwent right great toe amputation today.. Denies any chest pain, shortness of breath, abd pain, nausea vomiting. Review of Systems Review of Systems: 12 systems were reviewed with pertinent positives and negatives per HPI. Except as documented in the HPI, all other systems were reviewed and are negative. Exam Narrative: Weight 77 kg BMI 22.4 Const: Other: No acute distress, well-developed well-nourished, disheveled HENMT: Other: Mucous membranes are moist, no oral pharyngeal erythema, head is normocephalic atraumatic, poor dentition with multiple teeth broken off at the gumline in numerous dental caries Eyes: Other: Pupils are equal and reactive, extraocular movements intact, no scleral icterus Neck: Other: No JVD, no lymphadenopathy Resp: Other: Clear to auscultation bilaterally, no increased work of breathing Cardio: Other: Regular rate, regular rhythm, 2+ bilateral radial pedal pulses GI: Other: Soft, nontender, nondistended, positive bowel sounds Skin: Other: No jaundice, no pallor, right great toe status post amputation. Well dressed Neuro: Other: Alert oriented, speech is clear, no facial asymmetry, no localizing neurologic deficits noted during the course of conversation Psych: Other: Anxious, restless, otherwise pleasant and cooperative, fair judgment and insight Objective Data Vital Signs Vital Signs: Vital Signs - 24 hr 02/23/25 16:00 02/23/25 20:00 02/23/25 21:33 Temperature 97.3 F L Pulse Rate 86 93 86 Respiratory Rate 20 Blood Pressure 121/82 Pulse Oximetry 100 Oxygen Delivery Oxygen Flow Rate 02/23/25 22:12 02/24/25 00:00 02/24/25 05:54 Temperature 97.2 F L Pulse Rate 93 75 80 Respiratory Rate 20 Blood Pressure 127/85 Pulse Oximetry 99 Oxygen Delivery Oxygen Flow Rate 02/24/25 08:00 02/24/25 09:05 02/24/25 09:20 Temperature 97.4 F L Pulse Rate 72 76 77 Respiratory Rate 21 H 18 Blood Pressure 140/94 H 144/96 H Pulse Oximetry 100 100 Oxygen Delivery Simple Face Mask Simple Face Mask Oxygen Flow Rate 8 8 02/24/25 09:35 02/24/25 09:50 Temperature Pulse Rate 69 72 Respiratory Rate 16 15 Blood Pressure 124/80 129/82 Pulse Oximetry 99 99 Oxygen Delivery Room Air Room Air Oxygen Flow Rate Intake/Output Intake/Output: Intake & Output 02/21/25 02/22/25 02/23/25 02/24/25 23:59 23:59 23:59 23:59 Intake Total 1150 3020.0 460.4 Balance 1150 3020.0 460.4 Meds/Results Medications: Active Medications Generic Name Dose Route Start Last Admin Trade Name Freq PRN Reason Stop Dose Admin Acetaminophen 1,000 mg 02/24/25 09:09 Acetaminophen 500 Mg Tablet PO Q6H PRN Mild Pain (1-3) or Fever Hydrocodone Bitart/Acetaminophen 1 tab 02/24/25 09:09 02/24/25 13:19 Hydrocodone/Acetaminophen (*Crx) 5-325 Mg Tablet PO 1 tab Q4H PRN Administration Pain Rated 4-6 Dextrose 12.5 gm 02/22/25 19:59 Dextrose 50% 25 Gm/50 Ml Syringe IV PUSH PRN PRN Hypoglycemia Protocol Enoxaparin Sodium 40 mg 02/23/25 09:00 02/24/25 11:20 Enoxaparin 40 Mg/0.4 Ml Syringe SUB-Q Not Given DAILY ADAM Glucagon 1 mg 02/22/25 19:59 Glucagon For Inj 1 Mg Vial IM PRN PRN Hypoglycemia Protocol Glucose 15 gm 02/22/25 19:59 Glucose Oral Gel 15 Gm Of Glucse In 37.5 Gm Tube PO PRN PRN Hypoglycemia Protocol Cefepime HCl 2 gm in 50 mls @ 100 mls/hr 02/22/25 16:00 02/24/25 03:28 Maxipime 2 Gm/Ns 50 Ml IVPB 100 mls/hr Q12H ADAM Administration Metronidazole 500 mg in 100 mls @ 100 mls/hr 02/22/25 18:00 02/24/25 11:20 Flagyl 500 Mg/Iso Soln 100 Ml IVPB Not Given Q8H ADAM Dextrose 1,000 mls @ 100 mls/hr 02/22/25 19:59 Dextrose 5% 1,000 Ml IVPB PRN PRN Hypoglycemia Protocol Sodium Chloride 1,000 mls @ 125 mls/hr 02/22/25 20:00 02/24/25 11:21 Normal Saline Iv IV CONT Not Given .Q8H ADAM Vancomycin HCl 1,750 mg in 500 mls @ 250 mls/hr 02/24/25 06:00 02/24/25 05:33 Vancomycin 1,750 Mg/Ns 500 Ml IVPB 250 mls/hr Q8H ADAM Administration Insulin Aspart 3 - 6 units 02/23/25 08:00 02/24/25 12:30 Insulin Aspart (*Bkc) 100 Units/Ml SUB-Q Not Given TIDWM [facility] Protocol Insulin Aspart 1 - 3 units 02/22/25 21:00 02/23/25 20:41 Insulin Aspart (*Bkc) 100 Units/Ml SUB-Q 3 units HS ADAM Administration Protocol Insulin Aspart 4 units 02/24/25 08:00 02/24/25 12:32 Insulin Aspart (*Bkc) 100 Units/Ml 0.05 units/kg (4 units) 4 units SUB-Q Administration TIDWM ADAM Insulin Glargine 18 units 02/23/25 21:00 02/23/25 20:40 Insulin Glargine (*Bkc) 100 Units/Ml SUB-Q 18 units HS ADAM Administration Morphine Sulfate 4 mg 02/24/25 09:09 Morphine Sulfate (*Crx) 4 Mg/Ml Inj IV PUSH Q4H PRN Pain Rated 7-10 Nicotine 1 patch 02/22/25 21:04 02/23/25 05:37 Nicotine (*Pbkc) 21 Mg Patch TRANSDERM 1 patch DAILY PRN Administration Nicotine withdrawal Oxycodone HCl 5 mg 02/24/25 09:09 Oxycodone Hcl (*Crx) 5 Mg Tab Ir PO Q4H PRN Pain Rated 7-10 Radiology Results: ITS Impressions Foot X-Ray 02/22/25 14:48 IMPRESSION: 1. Osteomyelitis with cortical erosion and osteomyelitis at the medial base of the right first distal phalanx. Labs Labs: Laboratory Results - last 24 hr 02/23/25 02/23/25 02/24/25 16:41 20:22 04:15 WBC 11.0 H RBC 4.46 L Hgb 13.1 L Hct 39.6 L MCV 88.8 MCH 29.4 MCHC 33.1 RDW 13.2 Plt Count 446 H MPV 9.9 Sodium 134 L Potassium 4.0 Chloride 106 Carbon Dioxide 22 Anion Gap 6 BUN 11 Creatinine 0.58 L Estim Creat Clear Calc 144 Estimated GFR > 60 Glucose 163 H POC Capillary Glucose 261 H 301 H Calcium 8.8 Vancomycin Trough 7.8 L 02/24/25 02/24/25 09:22 11:50 WBC RBC Hgb Hct MCV MCH MCHC RDW Plt Count MPV Sodium Potassium Chloride Carbon Dioxide Anion Gap BUN Creatinine Estim Creat Clear Calc Estimated GFR Glucose POC Capillary Glucose 150 H 158 H Calcium Vancomycin Trough Quality VTE Prophylaxis VTE prophylaxis: pharmacologic ordered (Lovenox 40 mg subQ daily.)
[2025-02-24 16:58] LABS: Glucose Point of Care 230 mg/dl (65-105)
[2025-02-24] MEDS: INSULIN GLARGINE (*BKC) 100 UNITS/ML 18 UNITS SUB-Q (21:44)
[2025-02-24 21:47] LABS: Glucose Point of Care 257 mg/dl (65-105)
[2025-02-25] VITALS (9 sets, daily range): BP systolic 124–139; BP diastolic 76–86; PULSE 78–92; RESP 18; TEMP 36.2–36.8; O2SAT 99–100
[2025-02-25] MEDS: HYDROcodone/acetaminophen (*CRX) 5-325 MG TABLET 1 TAB PO ×2 (02:25→06:36)
[2025-02-25] MEDS: metroNIDAZOLE 500 MG/ISO 100ML 500 MG/100 ML BAG 100 MG IVPB ×2 (02:26→09:27)
[2025-02-25 05:56] LABS: Hematocrit 39.2 % (42.0-52.0); Hemoglobin 12.6 g/dL (14.0-18.0); Mean Corpuscular HGB Conc 32.1 g/dl (32-36); Mean Corpuscular Hemoglobin 29.4 pg (26-34); Mean Corpuscular Volume 91.6 fl (80-100); Mean Platelet Volume 10.3 fl (7.4-10.4); Platelet Count Result 389 k/mm3 (150-375); Red Blood Count 4.28 M/mm3 (4.6-6.20); Red Cell Distribution Width 13.1 % (11.5-14.5); White Blood Count 11.3 K/mm3 (4.5-10.0)
[2025-02-25 06:14] LABS: Anion Gap 8 mmol/L (4-12); Blood Urea Nitrogen 14 mg/dL (9-20); Calcium 8.7 mg/dL (8.4-10.2); Carbon Dioxide 21 mmol/L (22-30); Chloride 105 mmol/L (98-107); Estimated CRCL calculation 146 ml/min; Estimated Glomerular Filt Rate > 60; Glucose 184 mg/dL (65-110); Potassium 3.7 mmol/L (3.4-5.0); Sodium 134 mmol/L (137-145)
[2025-02-25] MEDS: SODIUM CHLORIDE 0.9% IV 1,000 ML 125 ML IV CONT ×2 (06:37→20:16)
[2025-02-25] MEDS: CEFEPIME 2 GM/NS 50 ML 2 GM/50 ML BAG IVPB ×2 (06:37→16:21)
[2025-02-25] MEDS: VANCOMYCIN 1,750 MG/NS 500 ML 1,750 MG/500 ML BAG 250 MG IVPB (07:21)
[2025-02-25 07:56] LABS: Glucose Point of Care 177 mg/dl (65-105)
[2025-02-25] MEDS: ENOXAPARIN 40 MG/0.4 ML SYRINGE SUB-Q (09:27)
[2025-02-25] MEDS: oxyCODONE HCL (*CRX) 5 MG TAB IR PO ×3 (09:28→20:12)
[2025-02-25] MEDS: INSULIN ASPART (*BKC) 100 UNITS/ML SUB-Q ×5 (09:28→17:00)
[2025-02-25] MEDS: MORPHINE SULFATE (*CRX) 4 MG/ML INJ IV PUSH ×2 (11:24→23:01)
--- NOTE | 2025-02-25 11:34 | WPDPN ---
Progress Note: A&P Assessment and Plan (1) Diabetic ulcer of right great toe: Code(s): E11.621 - Type 2 diabetes mellitus with foot ulcer; L97.519 - Non-pressure chronic ulcer of other part of right foot with unspecified severity Status: Acute Assessment and Plan: Status post right amputation right great toe postop day 1. Continue daily dressing changes with quarter or 1/2inch iodoform packing to the wound daily and covering with dry gauze. Wound is partially closed and the flaps appear viable. Continue with IV antibiotics for now and eventually the affected transition to oral antibiotics. PT and OT ordered for teaching and safety with ambulation. Will give him a postop shoe for the right foot. (2) Type 2 diabetes mellitus with hyperglycemia, without long-term current use of insulin: Code(s): E11.65 - Type 2 diabetes mellitus with hyperglycemia Status: Acute Assessment and Plan: Management as per hospitalist. Subjective Date/time seen: 02/25/25 11:34 Interval history: Postop day 1 after right amputation of right great toe for diabetic associated gangrene and osteomyelitis. He is doing pretty well today. Still has some pain in the foot but well controlled with oral pain medications. White blood cell count is down to 11,000. He remains on Rocephin, Flagyl, and vancomycin for IV antibiotics. Glucose levels have been in the 170s and 180s. Exam Extrem: Other: Right ray amputation of great toe wound is clean. The subcutaneous flaps are viable. The wound is partially closed. The base of the wound looks healthy with no overall granulation tissue yet but no purulent drainage in no necrotic tissue. Minimal swelling is noted and minimal erythema just at the edges of the skin. No necrotic skin edges. He is able remove his remaining toes of his right foot which all appeared viable. Objective Data Vital Signs Vital Signs: Vital Signs - 24 hr 02/24/25 11:55 02/24/25 14:19 02/24/25 15:46 Temperature 36.2 C L Pulse Rate 73 Respiratory Rate 16 Blood Pressure 123/82 Pulse Oximetry 100 Oxygen Delivery Room Air Room Air 02/24/25 16:00 02/24/25 16:37 02/24/25 20:30 Temperature 36.3 C L Pulse Rate 92 92 92 Respiratory Rate 16 Blood Pressure 129/79 Pulse Oximetry 95 Oxygen Delivery 02/24/25 22:44 02/25/25 00:00 02/25/25 00:10 Temperature 36.4 C L 36.5 C Pulse Rate 90 87 84 Respiratory Rate 18 18 Blood Pressure 135/85 129/76 Pulse Oximetry 100 99 Oxygen Delivery 02/25/25 06:00 02/25/25 08:00 02/25/25 08:00 Temperature 36.2 C L Pulse Rate 78 92 Respiratory Rate 18 Blood Pressure 133/82 Pulse Oximetry 100 Oxygen Delivery Room Air Intake/Output Intake/Output: Intake & Output 02/22/25 02/23/25 02/24/25 02/25/25 23:59 23:59 23:59 23:59 Intake Total 1150 3020.0 4120.0 650 Output Total 900 1700 Balance 1150 3020.0 3220.0 -1050 Meds/Results Medications: Active Medications Generic Name Dose Route Start Last Admin Trade Name Freq PRN Reason Stop Dose Admin Acetaminophen 1,000 mg 02/24/25 09:09 Acetaminophen 500 Mg Tablet PO Q6H PRN Mild Pain (1-3) or Fever Hydrocodone Bitart/Acetaminophen 1 tab 02/24/25 09:09 02/25/25 06:36 Hydrocodone/Acetaminophen (*Crx) 5-325 Mg Tablet PO 1 tab Q4H PRN Administration Pain Rated 4-6 Dextrose 12.5 gm 02/22/25 19:59 Dextrose 50% 25 Gm/50 Ml Syringe IV PUSH PRN PRN Hypoglycemia Protocol Enoxaparin Sodium 40 mg 02/23/25 09:00 02/25/25 09:27 Enoxaparin 40 Mg/0.4 Ml Syringe SUB-Q 40 mg DAILY ADAM Administration Glucagon 1 mg 02/22/25 19:59 Glucagon For Inj 1 Mg Vial IM PRN PRN Hypoglycemia Protocol Glucose 15 gm 02/22/25 19:59 Glucose Oral Gel 15 Gm Of Glucse In 37.5 Gm Tube PO PRN PRN Hypoglycemia Protocol Cefepime HCl 2 gm in 50 mls @ 100 mls/hr 02/22/25 16:00 02/25/25 06:37 Maxipime 2 Gm/Ns 50 Ml IVPB 100 mls/hr Q12H ADAM Administration Metronidazole 500 mg in 100 mls @ 100 mls/hr 02/22/25 18:00 02/25/25 09:27 Flagyl 500 Mg/Iso Soln 100 Ml IVPB 100 mls/hr Q8H ADAM Administration Dextrose 1,000 mls @ 100 mls/hr 02/22/25 19:59 Dextrose 5% 1,000 Ml IVPB PRN PRN Hypoglycemia Protocol Sodium Chloride 1,000 mls @ 125 mls/hr 02/22/25 20:00 02/25/25 06:37 Normal Saline Iv IV CONT 125 mls/hr .Q8H ADAM Administration Vancomycin HCl 2,000 mg in 500 mls @ 250 mls/hr 02/25/25 14:00 Vancomycin 2,000 Mg/Ns 500 Ml IVPB Q8H ADAM Insulin Aspart 3 - 6 units 02/23/25 08:00 02/25/25 09:29 Insulin Aspart (*Bkc) 100 Units/Ml SUB-Q Not Given TIDWM [facility] Protocol Insulin Aspart 1 - 3 units 02/22/25 21:00 02/24/25 21:45 Insulin Aspart (*Bkc) 100 Units/Ml SUB-Q 2 units HS [facility] Administration Protocol Insulin Aspart 4 units 02/24/25 08:00 02/25/25 09:28 Insulin Aspart (*Bkc) 100 Units/Ml 0.05 units/kg (4 units) 4 units SUB-Q Administration TIDWM [facility] Insulin Glargine 18 units 02/23/25 21:00 02/24/25 21:44 Insulin Glargine (*Bkc) 100 Units/Ml SUB-Q 18 units HS [facility] Administration Morphine Sulfate 4 mg 02/24/25 09:09 Morphine Sulfate (*Crx) 4 Mg/Ml Inj IV PUSH Q4H PRN Pain Rated 7-10 Nicotine 1 patch 02/22/25 21:04 02/23/25 05:37 Nicotine (*Pbkc) 21 Mg Patch TRANSDERM 1 patch DAILY PRN Administration Nicotine withdrawal Oxycodone HCl 5 mg 02/24/25 09:09 02/25/25 09:28 Oxycodone Hcl (*Crx) 5 Mg Tab Ir PO 5 mg Q4H PRN Administration Pain Rated 7-10 Radiology Results: ITS Impressions Foot X-Ray 02/22/25 14:48 IMPRESSION: 1. Osteomyelitis with cortical erosion and osteomyelitis at the medial base of the right first distal phalanx. Labs Labs: Laboratory Results - last 24 hr 02/24/25 02/24/25 02/24/25 11:50 16:55 21:40 WBC RBC Hgb Hct MCV MCH MCHC RDW Plt Count MPV Sodium Potassium Chloride Carbon Dioxide Anion Gap BUN Creatinine Estim Creat Clear Calc Estimated GFR Glucose POC Capillary Glucose 158 H 230 H 257 H Calcium Vancomycin Trough 02/25/25 02/25/25 05:48 07:53 WBC 11.3 H RBC 4.28 L Hgb 12.6 L Hct 39.2 L MCV 91.6 MCH 29.4 MCHC 32.1 RDW 13.1 Plt Count 389 H MPV 10.3 Sodium 134 L Potassium 3.7 Chloride 105 Carbon Dioxide 21 L Anion Gap 8 BUN 14 Creatinine 0.57 L Estim Creat Clear Calc 146 Estimated GFR > 60 Glucose 184 H POC Capillary Glucose 177 H Calcium 8.7 Vancomycin Trough 11.0
[2025-02-25 11:57] LABS: Glucose Point of Care 226 mg/dl (65-105)
--- NOTE | 2025-02-25 12:57 | P.PNIM_ITS ---
Progress Note: A&P Assessment and Plan (1) Diabetic ulcer of right great toe: Code(s): E11.621 - Type 2 diabetes mellitus with foot ulcer; L97.519 - Non-pressure chronic ulcer of other part of right foot with unspecified severity Status: Acute (2) Osteomyelitis: Qualifiers: Laterality: right Osteomyelitis location: foot Osteomyelitis type: chronic, with draining sinus Qualified Code(s): M86.471 - Chronic osteomyelitis with draining sinus, right ankle and foot Code(s): M86.9 - Osteomyelitis, unspecified Status: Acute (3) Type 2 diabetes mellitus with hyperglycemia, without long-term current use of insulin: Code(s): E11.65 - Type 2 diabetes mellitus with hyperglycemia Status: Acute (4) Diabetic peripheral neuropathy: Code(s): E11.42 - Type 2 diabetes mellitus with diabetic polyneuropathy Status: Acute (5) Tobacco abuse: Code(s): Z72.0 - Tobacco use Status: Acute Plan Osteomyelitis of great toe Continue cefepime Flagyl and vancomycin Follow cultures Status post right toe amputation 02/24/2025 Uncontrolled diabetes SSRI could check Lantus and lispro Continue to monitor tobacco abuse nicotin patch Subjective Date/time seen: 02/25/25 12:57 Interval history: per hPI: 49-year-old male with a past medical history of PTSD, anxiety, tobacco abuse and diabetes who did not follow-up with care it does not take any diabetic medications who presented to the ER with a chronic wound to his right great toe. The patient reports that he has had a wound to his right great toe for about 2 months or so. He stated that he actually got a blister on his opposite toe and he thinks that he was walking funny to compensate for the blister on his right toe when he developed a wound to his left toe. He reports that the wound is painful if he is up and walking but is relatively minor pain if he is resting with his leg elevated. Over the last 2 weeks the wound has acutely worsened and is developed large area of necrosis to the top of the toe with purulence drainage and erythema more proximal into the foot. He denies any fevers or chills. He does have symptoms of neuropathy but denies a prior diagnosis. He states that he was initially told the had diabetes in August when he was evaluated at [place]. He states that he was hospitalized there but then left AMA due to his PTSD. He states he is often ?difficult to deal with?. He has had about 1 month of increased polydipsia, polyuria and polyphagia from baseline. He reports that he always feels thirsty. He denies any dysuria year hematuria. He has noticed an acute change in his vision over the last month with increased blurry vision although he states that his vision is not good at baseline. He has not seen an eye doctor in many years. He does have chronic dental caries with multiple teeth broken off at the gumline but denies any current oral infections or pain. He reports unintentional weight loss of about 100 lb over the last 2-2 and half years. I suspect that he likely has had diabetes for this time. In this is resulted in his weight loss. In the ER patient's glucoses were noted to be in 600. Patient had a gangrenous appearing great toe. His labs also demonstrated leukocytosis without neutrophil predominance, pseudo hyponatremia with sodium of 128, hypochloremia and mildly decreased serum bicarb at 20 with mildly elevated anion gap at 13. He received 1 L fluid bolus in the ER and 10 units of IV insulin. His repeat glucose was down to 299. His CRP was mildly elevated 1.3. X-ray of the foot demonstrated osteomyelitis with cortical erosion and osteomyelitis at the medial base of the right 1st distal phalanx. Blood cultures were obtained. Patient was evaluated by General surgery and the patient was admitted for further treatment. 02/23/25 surgery team on board. Plan for surgery tomorrow blood sugar under better control. Continue with IV antibiotics 02/24/25 Patient was seen and examined at bedside. Patient underwent right great toe amputation today.. Denies any chest pain, shortness of breath, abd pain, nausea vomiting. 02/25/25 Patient was seen and examined at bedside. He is complaining of severe S/worsening right feet pain. Denies any chest pain, shortness off rhythm abdominal pain, nausea vomiting. Discussed with care coordination. Patient is not qualified for home health because of the insurance. Review of Systems Review of Systems: 12 systems were reviewed with pertinent positives and negatives per HPI. Except as documented in the HPI, all other systems were reviewed and are negative. Exam Narrative: Weight 77 kg BMI 22.4 Const: Other: No acute distress, well-developed well-nourished, disheveled HENMT: Other: Mucous membranes are moist, no oral pharyngeal erythema, head is normocephalic atraumatic, poor dentition with multiple teeth broken off at the gumline in numerous dental caries Eyes: Other: Pupils are equal and reactive, extraocular movements intact, no scleral icterus Neck: Other: No JVD, no lymphadenopathy Resp: Other: Clear to auscultation bilaterally, no increased work of breathing Cardio: Other: Regular rate, regular rhythm, 2+ bilateral radial pedal pulses GI: Other: Soft, nontender, nondistended, positive bowel sounds Skin: Other: No jaundice, no pallor, right great toe status post amputation. Well dressed Neuro: Other: Alert oriented, speech is clear, no facial asymmetry, no localizing neurologic deficits noted during the course of conversation Psych: Other: Anxious, restless, otherwise pleasant and cooperative, fair judgment and insight Objective Data Vital Signs Vital Signs: Vital Signs - 24 hr 02/24/25 14:19 02/24/25 15:46 02/24/25 16:00 Temperature Pulse Rate 92 Respiratory Rate Blood Pressure Pulse Oximetry Oxygen Delivery Room Air Room Air 02/24/25 16:37 02/24/25 20:30 02/24/25 22:44 Temperature 97.3 F L 97.5 F L Pulse Rate 92 92 90 Respiratory Rate 16 18 Blood Pressure 129/79 135/85 Pulse Oximetry 95 100 Oxygen Delivery 02/25/25 00:00 02/25/25 00:10 02/25/25 06:00 Temperature 97.7 F 97.2 F L Pulse Rate 87 84 78 Respiratory Rate 18 18 Blood Pressure 129/76 133/82 Pulse Oximetry 99 100 Oxygen Delivery 02/25/25 08:00 02/25/25 08:00 Temperature Pulse Rate 92 Respiratory Rate Blood Pressure Pulse Oximetry Oxygen Delivery Room Air Intake/Output Intake/Output: Intake & Output 02/22/25 02/23/25 02/24/25 02/25/25 23:59 23:59 23:59 23:59 Intake Total 1150 3020.0 4120.0 1130 Output Total 900 1700 Balance 1150 3020.0 3220.0 -570 Meds/Results Medications: Active Medications Generic Name Dose Route Start Last Admin Trade Name Freq PRN Reason Stop Dose Admin Acetaminophen 1,000 mg 02/24/25 09:09 Acetaminophen 500 Mg Tablet PO Q6H PRN Mild Pain (1-3) or Fever Hydrocodone Bitart/Acetaminophen 1 tab 02/24/25 09:09 02/25/25 06:36 Hydrocodone/Acetaminophen (*Crx) 5-325 Mg Tablet PO 1 tab Q4H PRN Administration Pain Rated 4-6 Dextrose 12.5 gm 02/22/25 19:59 Dextrose 50% 25 Gm/50 Ml Syringe IV PUSH PRN PRN Hypoglycemia Protocol Enoxaparin Sodium 40 mg 02/23/25 09:00 02/25/25 09:27 Enoxaparin 40 Mg/0.4 Ml Syringe SUB-Q 40 mg DAILY ADAM Administration Glucagon 1 mg 02/22/25 19:59 Glucagon For Inj 1 Mg Vial IM PRN PRN Hypoglycemia Protocol Glucose 15 gm 02/22/25 19:59 Glucose Oral Gel 15 Gm Of Glucse In 37.5 Gm Tube PO PRN PRN Hypoglycemia Protocol Cefepime HCl 2 gm in 50 mls @ 100 mls/hr 02/22/25 16:00 02/25/25 06:37 Maxipime 2 Gm/Ns 50 Ml IVPB 100 mls/hr Q12H ADAM Administration Metronidazole 500 mg in 100 mls @ 100 mls/hr 02/22/25 18:00 02/25/25 09:27 Flagyl 500 Mg/Iso Soln 100 Ml IVPB 100 mls/hr Q8H ADAM Administration Dextrose 1,000 mls @ 100 mls/hr 02/22/25 19:59 Dextrose 5% 1,000 Ml IVPB PRN PRN Hypoglycemia Protocol Sodium Chloride 1,000 mls @ 125 mls/hr 02/22/25 20:00 02/25/25 06:37 Normal Saline Iv IV CONT 125 mls/hr .Q8H ADAM Administration Vancomycin HCl 2,000 mg in 500 mls @ 250 mls/hr 02/25/25 14:00 Vancomycin 2,000 Mg/Ns 500 Ml IVPB Q8H ADAM Insulin Aspart 3 - 6 units 02/23/25 08:00 02/25/25 12:39 Insulin Aspart (*Bkc) 100 Units/Ml SUB-Q 3 units TIDWM ADAM Administration Protocol Insulin Aspart 1 - 3 units 02/22/25 21:00 02/24/25 21:45 Insulin Aspart (*Bkc) 100 Units/Ml SUB-Q 2 units HS ADAM Administration Protocol Insulin Aspart 4 units 02/24/25 08:00 02/25/25 12:31 Insulin Aspart (*Bkc) 100 Units/Ml 0.05 units/kg (4 units) 4 units SUB-Q Administration TIDWM [facility] Insulin Glargine 18 units 02/23/25 21:00 02/24/25 21:44 Insulin Glargine (*Bkc) 100 Units/Ml SUB-Q 18 units [facility] Administration Morphine Sulfate 4 mg 02/24/25 09:09 02/25/25 11:24 Morphine Sulfate (*Crx) 4 Mg/Ml Inj IV PUSH 4 mg Q4H PRN Administration Pain Rated 7-10 Nicotine 1 patch 02/22/25 21:04 02/23/25 05:37 Nicotine (*Pbkc) 21 Mg Patch TRANSDERM 1 patch DAILY PRN Administration Nicotine withdrawal Oxycodone HCl 5 mg 02/24/25 09:09 02/25/25 09:28 Oxycodone Hcl (*Crx) 5 Mg Tab Ir PO 5 mg Q4H PRN Administration Pain Rated 7-10 Radiology Results: ITS Impressions Foot X-Ray 02/22/25 14:48 IMPRESSION: 1. Osteomyelitis with cortical erosion and osteomyelitis at the medial base of the right first distal phalanx. Labs Labs: Laboratory Results - last 24 hr 02/24/25 02/24/25 02/25/25 16:55 21:40 05:48 WBC 11.3 H RBC 4.28 L Hgb 12.6 L Hct 39.2 L MCV 91.6 MCH 29.4 MCHC 32.1 RDW 13.1 Plt Count 389 H MPV 10.3 Sodium 134 L Potassium 3.7 Chloride 105 Carbon Dioxide 21 L Anion Gap 8 BUN 14 Creatinine 0.57 L Estim Creat Clear Calc 146 Estimated GFR > 60 Glucose 184 H POC Capillary Glucose 230 H 257 H Calcium 8.7 Vancomycin Trough 11.0 02/25/25 02/25/25 07:53 11:52 WBC RBC Hgb Hct MCV MCH MCHC RDW Plt Count MPV Sodium Potassium Chloride Carbon Dioxide Anion Gap BUN Creatinine Estim Creat Clear Calc Estimated GFR Glucose POC Capillary Glucose 177 H 226 H Calcium Vancomycin Trough Quality VTE Prophylaxis VTE prophylaxis: pharmacologic ordered (Lovenox 40 mg subQ daily.)
[2025-02-25] MEDS: VANCOMYCIN 2,000 MG/NS 500 ML 2,000 MG/500 ML BAG 250 MG IVPB ×2 (13:50→22:59)
[2025-02-25] MEDS: metroNIDAZOLE 500 MG TABLET PO ×2 (16:23→20:13)
[2025-02-25 17:24] LABS: Glucose Point of Care 251 mg/dl (65-105)
[2025-02-25] MEDS: INSULIN GLARGINE (*BKC) 100 UNITS/ML 18 UNITS SUB-Q (20:14)
[2025-02-25 20:57] LABS: Glucose Point of Care 153 mg/dl (65-105)
[2025-02-26] VITALS (11 sets, daily range): BP systolic 132–136; BP diastolic 75–88; PULSE 74–88; RESP 18–20; TEMP 36.2–37.1; O2SAT 94–100
[2025-02-26] MEDS: HYDROcodone/acetaminophen (*CRX) 5-325 MG TABLET 1 TAB PO (00:58)
[2025-02-26] MEDS: oxyCODONE HCL (*CRX) 5 MG TAB IR PO ×4 (04:27→20:15)
[2025-02-26] MEDS: CEFEPIME 2 GM/NS 50 ML 2 GM/50 ML BAG IVPB ×2 (04:28→17:06)
[2025-02-26] MEDS: SODIUM CHLORIDE 0.9% IV 1,000 ML 125 ML IV CONT (04:28)
[2025-02-26] MEDS: VANCOMYCIN 2,000 MG/NS 500 ML 2,000 MG/500 ML BAG 250 MG IVPB ×3 (06:25→21:00)
[2025-02-26] MEDS: metroNIDAZOLE 500 MG TABLET PO ×3 (06:26→20:59)
[2025-02-26 06:28] LABS: Hematocrit 41.5 % (42.0-52.0); Hemoglobin 13.5 g/dL (14.0-18.0); Mean Corpuscular HGB Conc 32.5 g/dl (32-36); Mean Corpuscular Hemoglobin 29.3 pg (26-34); Mean Platelet Volume 10.3 fl (7.4-10.4); Platelet Count Result 437 k/mm3 (150-375); Red Blood Count 4.61 M/mm3 (4.6-6.20); Red Cell Distribution Width 13.1 % (11.5-14.5); White Blood Count 12.3 K/mm3 (4.5-10.0)
[2025-02-26 06:41] LABS: Anion Gap 8 mmol/L (4-12); Blood Urea Nitrogen 9 mg/dL (9-20); Calcium 9.1 mg/dL (8.4-10.2); Carbon Dioxide 22 mmol/L (22-30); Chloride 104 mmol/L (98-107); Estimated CRCL calculation 153 ml/min; Estimated Glomerular Filt Rate > 60; Glucose 191 mg/dL (65-110); Potassium 4.1 mmol/L (3.4-5.0); Sodium 134 mmol/L (137-145)
[2025-02-26 07:48] LABS: Glucose Point of Care 180 mg/dl (65-105)
[2025-02-26] MEDS: ENOXAPARIN 40 MG/0.4 ML SYRINGE SUB-Q (08:36)
[2025-02-26] MEDS: INSULIN ASPART (*BKC) 100 UNITS/ML SUB-Q ×5 (08:36→20:59)
[2025-02-26 10:04] LABS: MRSA (PCR) NOT DETECTED (NOT DETECTE)
--- NOTE | 2025-02-26 10:08 | PCNFU ---
Nutrition Follow-Up Complete: Altered nutrition related lab values related to uncontrolled diabetes as evidenced by A1C >14 Increased protein energy needs related to wound healing as evidenced by diabetic foot ulcer Adequate PO intake at least 75% meals and supplements - Goal is being met. Continue same goal Goal: Pt current nutrition is Diabetic consistent carb diet. Glucerna BID (220 kcal, 10 g protein), Jeremias BID for wounds (90 kcal, 2.5 g protein). Nutrition recommendation: No new recommendations. Continue current nutrition care plan and orders Last recorded weight is 77 kg. Bowel Motility: No BMs are recorded Labs Reviewed: Hgb 13.5, Hct 41.5, Na 134, Cre 0.54, Glu 191 Meds Noted: NS, insulin Skin: R toe amputation 02/24 Additional Notes: Intakes 100% on current diet. Blood sugars are more controlled. Continue orders. Agree with current orders Monitoring intakes, weights, labs, supplement tolerance, wounds Follow up in 3 days
[2025-02-26] MEDS: MORPHINE SULFATE (*CRX) 4 MG/ML INJ IV PUSH (11:48)
[2025-02-26 11:51] LABS: Glucose Point of Care 307 mg/dl (65-105)
[2025-02-26] MEDS: NICOTINE (*PBKC) 21 MG PATCH 1 PATCH TRANSDERM (11:59)
--- NOTE | 2025-02-26 11:59 | P.PNGS_ITS ---
Progress Note: A&P Assessment and Plan (1) Diabetic ulcer of right great toe: Code(s): E11.621 - Type 2 diabetes mellitus with foot ulcer; L97.519 - Non-pressure chronic ulcer of other part of right foot with unspecified severity Status: Acute Assessment and Plan: * Status post right amputation right great toe postop day 2. Continue daily dressing changes with quarter or 1/2inch iodoform packing to the wound daily and covering with dry gauze. Wound is partially closed and the flaps appear viable. Continue with IV antibiotics for today and could consider discharge with oral antibiotics tomorrow if he continues to do well. PT and OT ordered for teaching and safety with ambulation. He has a postop shoe at the bedside for his right foot. CC will work on home health and trying to set up insurance. He will be educated by the nurses on how to do dressing changes for the days that home health will not be at his home. (2) Type 2 diabetes mellitus with hyperglycemia, without long-term current use of insulin: Code(s): E11.65 - Type 2 diabetes mellitus with hyperglycemia Status: Acute Assessment and Plan: * Management as per hospitalist. Plan I have discussed the patient's case and plan of care with Dr. Vasquez. Subjective Subjective Date/Time Seen: 02/26/25 11:59 Patient reports: no new complaints Interval history: No acute issues overnight. Patient did require IV morphine overnight for breakthrough pain. His pain is located at the right great toe amputation site. He reports pain is better controlled with the oxycodone. He has a postop shoe at the bedside. PT/OT ordered and planning to work with him today. Exam Extrem: Other: Right great toe ray amputation with an open wound that appears clean with some granulating tissue. The subcutaneous flaps remain viable. The wound is partially closed with sutures intact and skin edges approximated in these areas. There is no purulent drainage and no necrotic tissue. Minimal swelling is noted and minimal erythema just at the edges of the skin. He is able move his remaining toes of his right foot which all appeared viable. Objective Data Vital Signs Vital Signs: Vital Signs - 24 hr 02/25/25 12:00 02/25/25 14:00 02/25/25 16:00 Temperature 98.2 F Pulse Rate 82 86 80 Respiratory Rate 18 Blood Pressure 139/86 Pulse Oximetry 100 Oxygen Delivery 02/25/25 20:00 02/25/25 22:00 02/26/25 00:00 Temperature 97.8 F Pulse Rate 78 87 77 Respiratory Rate 18 Blood Pressure 124/76 Pulse Oximetry 100 Oxygen Delivery 02/26/25 03:20 02/26/25 06:00 02/26/25 08:00 Temperature 97.1 F L Pulse Rate 74 76 Respiratory Rate 18 Blood Pressure 132/83 Pulse Oximetry 96 96 Oxygen Delivery Room Air 02/26/25 08:00 Temperature Pulse Rate 80 Respiratory Rate Blood Pressure Pulse Oximetry Oxygen Delivery Intake/Output Intake/Output: Intake & Output 02/23/25 02/24/25 02/25/25 02/26/25 23:59 23:59 23:59 23:59 Intake Total 3020.0 4120.0 3010 2380 Output Total 900 4300 4600 Balance 3020.0 3220.0 -1290 -2220 Meds/Results Medications: Active Medications Generic Name Dose Route Start Last Admin Trade Name Freq PRN Reason Stop Dose Admin Acetaminophen 1,000 mg 02/24/25 09:09 Acetaminophen 500 Mg Tablet PO Q6H PRN Mild Pain (1-3) or Fever Hydrocodone Bitart/Acetaminophen 1 tab 02/24/25 09:09 02/26/25 00:58 Hydrocodone/Acetaminophen (*Crx) 5-325 Mg Tablet PO 1 tab Q4H PRN Administration Pain Rated 4-6 Dextrose 12.5 gm 02/22/25 19:59 Dextrose 50% 25 Gm/50 Ml Syringe IV PUSH PRN PRN Hypoglycemia Protocol Enoxaparin Sodium 40 mg 02/23/25 09:00 02/26/25 08:36 Enoxaparin 40 Mg/0.4 Ml Syringe SUB-Q 40 mg DAILY ADAM Administration Glucagon 1 mg 02/22/25 19:59 Glucagon For Inj 1 Mg Vial IM PRN PRN Hypoglycemia Protocol Glucose 15 gm 02/22/25 19:59 Glucose Oral Gel 15 Gm Of Glucse In 37.5 Gm Tube PO PRN PRN Hypoglycemia Protocol Cefepime HCl 2 gm in 50 mls @ 100 mls/hr 02/22/25 16:00 02/26/25 05:29 Maxipime 2 Gm/Ns 50 Ml IVPB Infused Q12H ADAM Infusion Dextrose 1,000 mls @ 100 mls/hr 02/22/25 19:59 Dextrose 5% 1,000 Ml IVPB PRN PRN Hypoglycemia Protocol Vancomycin HCl 2,000 mg in 500 mls @ 250 mls/hr 02/25/25 14:00 02/26/25 06:25 Vancomycin 2,000 Mg/Ns 500 Ml IVPB 250 mls/hr Q8H ADAM Administration Insulin Aspart 3 - 6 units 02/23/25 08:00 02/26/25 11:51 Insulin Aspart (*Bkc) 100 Units/Ml SUB-Q 5 units TIDWM [facility] Administration Protocol Insulin Aspart 1 - 3 units 02/22/25 21:00 02/25/25 20:11 Insulin Aspart (*Bkc) 100 Units/Ml SUB-Q Not Given [facility] Protocol Insulin Aspart 4 units 02/24/25 08:00 02/26/25 11:50 Insulin Aspart (*Bkc) 100 Units/Ml 0.05 units/kg (4 units) 4 units SUB-Q Administration TIDWM [facility] Insulin Glargine 18 units 02/23/25 21:00 02/25/25 20:14 Insulin Glargine (*Bkc) 100 Units/Ml SUB-Q 18 units HS [facility] Administration Metronidazole 500 mg 02/25/25 14:00 02/26/25 06:26 Metronidazole 500 Mg Tablet PO 500 mg Q8HR ADAM Administration Morphine Sulfate 4 mg 02/24/25 09:09 02/26/25 11:48 Morphine Sulfate (*Crx) 4 Mg/Ml Inj IV PUSH 4 mg Q4H PRN Administration Pain Rated 7-10 Nicotine 1 patch 02/22/25 21:04 02/23/25 05:37 Nicotine (*Pbkc) 21 Mg Patch TRANSDERM 1 patch DAILY PRN Administration Nicotine withdrawal Oxycodone HCl 5 mg 02/24/25 09:09 02/26/25 08:36 Oxycodone Hcl (*Crx) 5 Mg Tab Ir PO 5 mg Q4H PRN Administration Pain Rated 7-10 Radiology Results: ITS Impressions Foot X-Ray 02/22/25 14:48 IMPRESSION: 1. Osteomyelitis with cortical erosion and osteomyelitis at the medial base of the right first distal phalanx. Labs Labs: Laboratory Results - last 24 hr 02/25/25 02/25/25 02/26/25 16:42 20:07 06:04 WBC 12.3 H RBC 4.61 Hgb 13.5 L Hct 41.5 L MCV 90.0 MCH 29.3 MCHC 32.5 RDW 13.1 Plt Count 437 H MPV 10.3 Sodium 134 L Potassium 4.1 Chloride 104 Carbon Dioxide 22 Anion Gap 8 BUN 9 D Creatinine 0.54 L Estim Creat Clear Calc 153 Estimated GFR > 60 Glucose 191 H POC Capillary Glucose 251 H 153 H Calcium 9.1 Nasal MRSA (PCR) 02/26/25 02/26/25 02/26/25 07:46 08:34 11:43 WBC RBC Hgb Hct MCV MCH MCHC RDW Plt Count MPV Sodium Potassium Chloride Carbon Dioxide Anion Gap BUN Creatinine Estim Creat Clear Calc Estimated GFR Glucose POC Capillary Glucose 180 H 307 H Calcium Nasal MRSA (PCR) Not detected
--- NOTE | 2025-02-26 12:04 | P.DS_ITS ---
DS: Admitting Diagnosis Discharge Date 02/27/25 Admitting Diagnosis R great toe wound/OM DS: Discharge Diagnosis Discharge Diagnosis (1) Diabetic ulcer of right great toe: Code(s): E11.621 - Type 2 diabetes mellitus with foot ulcer; L97.519 - Non-pressure chronic ulcer of other part of right foot with unspecified severity Status: Acute (2) Osteomyelitis: Qualifiers: Laterality: right Osteomyelitis location: foot Osteomyelitis type: chronic, with draining sinus Qualified Code(s): M86.471 - Chronic osteomyelitis with draining sinus, right ankle and foot Code(s): M86.9 - Osteomyelitis, unspecified Status: Acute (3) Type 2 diabetes mellitus with hyperglycemia, without long-term current use of insulin: Code(s): E11.65 - Type 2 diabetes mellitus with hyperglycemia Status: Acute (4) Diabetic peripheral neuropathy: Code(s): E11.42 - Type 2 diabetes mellitus with diabetic polyneuropathy Status: Acute (5) Tobacco abuse: Code(s): Z72.0 - Tobacco use Status: Acute Plan Osteomyelitis of great toe received cefepime Flagyl and vancomycin will discharge on Augmentin and doxy blood cultures neg Status post right toe amputation 02/24/2025 new Uncontrolled diabetes SSRI could check Lantus and lispro Continue to monitor tobacco abuse nicotin patch DS: Summary Hospital Course Hospital Course: 49-year-old male with a past medical history of PTSD, anxiety, tobacco abuse and diabetes who did not follow-up with care it does not take any diabetic medications who presented to the ER with a chronic wound to his right great toe. The patient reports that he has had a wound to his right great toe for about 2 months or so. He stated that he actually got a blister on his opposite toe and he thinks that he was walking funny to compensate for the blister on his right toe when he developed a wound to his left toe. He reports that the wound is painful if he is up and walking but is relatively minor pain if he is resting with his leg elevated. Over the last 2 weeks the wound has acutely worsened and is developed large area of necrosis to the top of the toe with purulence drainage and erythema more proximal into the foot. He denies any fevers or chills. He does have symptoms of neuropathy but denies a prior diagnosis. He states that he was initially told the had diabetes in August when he was evaluated at [facility]. He states that he was hospitalized there but then left AMA due to his PTSD. He states he is often ?difficult to deal with?. He has had about 1 month of increased polydipsia, polyuria and polyphagia from baseline. He reports that he always feels thirsty. He denies any dysuria year hematuria. He has noticed an acute change in his vision over the last month with increased blurry vision although he states that his vision is not good at baseline. He has not seen an eye doctor in many years. He does have chronic dental caries with multiple teeth broken off at the gumline but denies any current oral infections or pain. He reports unintentional weight loss of about 100 lb over the last 2-2 and half years. I suspect that he likely has had diabetes for this time. In this is resulted in his weight loss. In the ER patient's glucoses were noted to be in 600. Patient had a gangrenous appearing great toe. His labs also demonstrated leukocytosis without neutrophil predominance, pseudo hyponatremia with sodium of 128, hypochloremia and mildly decreased serum bicarb at 20 with mildly elevated anion gap at 13. He received 1 L fluid bolus in the ER and 10 units of IV insulin. His repeat glucose was down to 299. His CRP was mildly elevated 1.3. X-ray of the foot demonstrated osteomyelitis with cortical erosion and osteomyelitis at the medial base of the right 1st distal phalanx. Blood cultures were obtained. Patient was evaluated by General surgery and the patient was admitted for further treatment. 02/23/25 Plan for surgery tomorrow blood sugar under better control. Continue with IV antibiotics 02/24/25 Patient was seen and examined at bedside. Patient underwent right great toe amputation today.. 02/25/25 Patient was seen and examined at bedside. He is complaining of severe S/worsening right feet pain. Discussed with care coordination. Patient is not qualified for home health because of the insurance. 02/27/25 Patient was seen and examined at bedside. His foot pain is under control. Denies any chest pain, shortness off rhythm abdominal pain, nausea vomiting. will discharge patient home on Oral Antibiotics. Will order glucometer and insulin. Status at Discharge Overall status at discharge: patient is progressing back to baseline Time Spent with Patient Time attestation: Total time spent providing and/or coordinating discharge services: Time spent: Greater than 30 minutes Exam Narrative: Weight 77 kg BMI 22.4 Const: Other: No acute distress, well-developed well-nourished, disheveled HENMT: Other: Mucous membranes are moist, no oral pharyngeal erythema, head is normocephalic atraumatic, poor dentition with multiple teeth broken off at the gumline in numerous dental caries Eyes: Other: Pupils are equal and reactive, extraocular movements intact, no scleral icterus Neck: Other: No JVD, no lymphadenopathy Resp: Other: Clear to auscultation bilaterally, no increased work of breathing Cardio: Other: Regular rate, regular rhythm, 2+ bilateral radial pedal pulses GI: Other: Soft, nontender, nondistended, positive bowel sounds Skin: Other: No jaundice, no pallor, right great toe status post amputation. Well dressed Neuro: Other: Alert oriented, speech is clear, no facial asymmetry, no localizing neurologic deficits noted during the course of conversation Extrem: Other: r great toe S/P amputation, well dressed Psych: Other: Anxious, restless, otherwise pleasant and cooperative, fair judgment and insight DS: Data Data Completed and Pending Pending studies at discharge: Pending at discharge 02/24/25 08:23 Surgical [PTH] Routine Labs on day of discharge: Labs from last 24 hours 02/26/25 02/26/25 02/26/25 11:43 08:34 07:46 WBC RBC Hgb Hct MCV MCH MCHC RDW Plt Count MPV Sodium Potassium Chloride Carbon Dioxide Anion Gap BUN Creatinine Estim Creat Clear Calc Estimated GFR Glucose POC Capillary Glucose 307 H 180 H Calcium Nasal MRSA (PCR) Not detected 02/26/25 02/25/25 02/25/25 06:04 20:07 16:42 WBC 12.3 H RBC 4.61 Hgb 13.5 L Hct 41.5 L MCV 90.0 MCH 29.3 MCHC 32.5 RDW 13.1 Plt Count 437 H MPV 10.3 Sodium 134 L Potassium 4.1 Chloride 104 Carbon Dioxide 22 Anion Gap 8 BUN 9 D Creatinine 0.54 L Estim Creat Clear Calc 153 Estimated GFR > 60 Glucose 191 H POC Capillary Glucose 153 H 251 H Calcium 9.1 Nasal MRSA (PCR) Preliminary micro results at discharge 02/22/25 14:32 Blood Culture - Preliminary Blood 02/22/25 15:02 Blood Culture - Preliminary Blood Discharge Plan Discharge Attending physician on discharge: Anton Pascal Consulting providers: Keyshawn Vasquez Discharging Clinician: Anton Pascal Anticipated Discharge Date/Time: 02/27/25 14:11 Patient Disposition: Home Activity: other - see discharge instructions Diet: as tolerated Discharge Instructions: * Follow-up with Dr. Vasquez in our office in 2 days. Our office will call you with a time of the appointment. Call sooner with any concerns. * Continue daily dressing changes. Pack your right foot wound with quarter-inch iodoform gauze and cover with 4 x 4 gauze and wrap with rolled gauze. * Use the postop shoe any time you get up to ambulate or transfer. * Use heel touch weight-bearing on the right lower extremity for any transfers or ambulation. Okay to use the kneeling scooter to get around to avoid putting any pressure on your right foot. * Take your antibiotics as prescribed. Patient Instructions: Antibiotic Form, Wound Infection (GEN), Foot Care for People with Diabetes (GEN), Type 2 Diabetes in Adults: New Diagnosis (GEN), How to Give an Insulin Injection (GEN), Wound Healing and Your Diet (GEN), How to Draw Up Insulin (GEN), What to Do if Your Blood Sugar is Low (GEN), Diabetes and Nutrition (GEN) Patient Language: Kyrgyz Stand Alone Forms: General Discharge Information Follow-up/Referrals: Keyshawn Vasquez MD [Physician] - 03/01/25 Discharge Medications: New hydrocodone-acetaminophen 5-325 mg Tablet 1 tablet PO Q4H PRN (Reason: Pain Rated 4-6) Qty: 15 0RF acetaminophen 500 mg Tablet 1,000 mg PO Q6H PRN (Reason: Mild Pain (1-3) Or Fever) Qty: 30 0RF doxycycline hyclate 100 mg Tablet 100 mg PO Q12HR Qty: 20 0RF (DME) blood sugar diagnostic Strip See Rx Instructions .Route Qty: 50 2RF Rx Instructions: As directed insulin glargine [Lantus Solostar U-100 Insulin] 100 unit/mL (3 mL) insulin pen 18 unit subcut QPM Qty: 3 2RF insulin lispro 100 unit/mL cartridge 4 unit subcut TID Qty: 15 2RF Rx Instructions: with meals. hold if blood sugar below 12o Date of admission: 02/22/25 16:05 Primary Care Provider: UNKNOWN,DOCTOR Admitting Provider: Lebron Lopez Attending physician on admission: Anton Pascal Condition: Serious Quality VTE Prophylaxis VTE prophylaxis: pharmacologic ordered (Lovenox 40 mg subQ daily.)
--- NOTE | 2025-02-26 12:17 | PM.IMPN ---
Progress Note: A&P Assessment and Plan (1) Diabetic ulcer of right great toe: Code(s): E11.621 - Type 2 diabetes mellitus with foot ulcer; L97.519 - Non-pressure chronic ulcer of other part of right foot with unspecified severity Status: Acute (2) Osteomyelitis: Qualifiers: Laterality: right Osteomyelitis location: foot Osteomyelitis type: chronic, with draining sinus Qualified Code(s): M86.471 - Chronic osteomyelitis with draining sinus, right ankle and foot Code(s): M86.9 - Osteomyelitis, unspecified Status: Acute (3) Type 2 diabetes mellitus with hyperglycemia, without long-term current use of insulin: Code(s): E11.65 - Type 2 diabetes mellitus with hyperglycemia Status: Acute (4) Diabetic peripheral neuropathy: Code(s): E11.42 - Type 2 diabetes mellitus with diabetic polyneuropathy Status: Acute (5) Tobacco abuse: Code(s): Z72.0 - Tobacco use Status: Acute Plan Osteomyelitis of great toe Continue cefepime Flagyl and vancomycin Follow cultures Status post right toe amputation 02/24/2025 Uncontrolled diabetes SSRI Accucheck Lantus and lispro Continue to monitor tobacco abuse nicotin patch Subjective Date/time seen: 02/26/25 12:17 Interval history: per hPI: 49-year-old male with a past medical history of PTSD, anxiety, tobacco abuse and diabetes who did not follow-up with care it does not take any diabetic medications who presented to the ER with a chronic wound to his right great toe. The patient reports that he has had a wound to his right great toe for about 2 months or so. He stated that he actually got a blister on his opposite toe and he thinks that he was walking funny to compensate for the blister on his right toe when he developed a wound to his left toe. He reports that the wound is painful if he is up and walking but is relatively minor pain if he is resting with his leg elevated. Over the last 2 weeks the wound has acutely worsened and is developed large area of necrosis to the top of the toe with purulence drainage and erythema more proximal into the foot. He denies any fevers or chills. He does have symptoms of neuropathy but denies a prior diagnosis. He states that he was initially told the had diabetes in August when he was evaluated at [facility]. He states that he was hospitalized there but then left AMA due to his PTSD. He states he is often ?difficult to deal with?. He has had about 1 month of increased polydipsia, polyuria and polyphagia from baseline. He reports that he always feels thirsty. He denies any dysuria year hematuria. He has noticed an acute change in his vision over the last month with increased blurry vision although he states that his vision is not good at baseline. He has not seen an eye doctor in many years. He does have chronic dental caries with multiple teeth broken off at the gumline but denies any current oral infections or pain. He reports unintentional weight loss of about 100 lb over the last 2-2 and half years. I suspect that he likely has had diabetes for this time. In this is resulted in his weight loss. In the ER patient's glucoses were noted to be in 600. Patient had a gangrenous appearing great toe. His labs also demonstrated leukocytosis without neutrophil predominance, pseudo hyponatremia with sodium of 128, hypochloremia and mildly decreased serum bicarb at 20 with mildly elevated anion gap at 13. He received 1 L fluid bolus in the ER and 10 units of IV insulin. His repeat glucose was down to 299. His CRP was mildly elevated 1.3. X-ray of the foot demonstrated osteomyelitis with cortical erosion and osteomyelitis at the medial base of the right 1st distal phalanx. Blood cultures were obtained. Patient was evaluated by General surgery and the patient was admitted for further treatment. 02/23/25 surgery team on board. Plan for surgery tomorrow blood sugar under better control. Continue with IV antibiotics 02/24/25 Patient was seen and examined at bedside. Patient underwent right great toe amputation today.. Denies any chest pain, shortness of breath, abd pain, nausea vomiting. 02/25/25 Patient was seen and examined at bedside. He is complaining of severe S/worsening right feet pain. Denies any chest pain, shortness off rhythm abdominal pain, nausea vomiting. Discussed with care coordination. Patient is not qualified for home health because of the insurance. 02/26/25 Patient was seen and examined at bedside. he is feeling better. he denies any chest pain, SOB, abd pain, N/V. Reviewed surgery note, plan to keep patient for one more day of Abx Review of Systems Review of Systems: 12 systems were reviewed with pertinent positives and negatives per HPI. Except as documented in the HPI, all other systems were reviewed and are negative. Exam Narrative: Weight 77 kg BMI 22.4 Const: Other: No acute distress, well-developed well-nourished, disheveled HENMT: Other: Mucous membranes are moist, no oral pharyngeal erythema, head is normocephalic atraumatic, poor dentition with multiple teeth broken off at the gumline in numerous dental caries Eyes: Other: Pupils are equal and reactive, extraocular movements intact, no scleral icterus Neck: Other: No JVD, no lymphadenopathy Resp: Other: Clear to auscultation bilaterally, no increased work of breathing Cardio: Other: Regular rate, regular rhythm, 2+ bilateral radial pedal pulses GI: Other: Soft, nontender, nondistended, positive bowel sounds Skin: Other: No jaundice, no pallor, right great toe status post amputation. Well dressed Neuro: Other: Alert oriented, speech is clear, no facial asymmetry, no localizing neurologic deficits noted during the course of conversation Psych: Other: Anxious, restless, otherwise pleasant and cooperative, fair judgment and insight Objective Data Vital Signs Vital Signs: Vital Signs - 24 hr 02/25/25 14:00 02/25/25 16:00 02/25/25 20:00 Temperature 98.2 F Pulse Rate 86 80 78 Respiratory Rate 18 Blood Pressure 139/86 Pulse Oximetry 100 Oxygen Delivery 02/25/25 22:00 02/26/25 00:00 02/26/25 03:20 Temperature 97.8 F Pulse Rate 87 77 74 Respiratory Rate 18 Blood Pressure 124/76 Pulse Oximetry 100 Oxygen Delivery 02/26/25 06:00 02/26/25 08:00 02/26/25 08:00 Temperature 97.1 F L Pulse Rate 76 80 Respiratory Rate 18 Blood Pressure 132/83 Pulse Oximetry 96 96 Oxygen Delivery Room Air Intake/Output Intake/Output: Intake & Output 02/23/25 02/24/25 02/25/25 02/26/25 23:59 23:59 23:59 23:59 Intake Total 3020.0 4120.0 3010 2380 Output Total 900 4300 4600 Balance 3020.0 3220.0 -1290 -2220 Meds/Results Medications: Active Medications Generic Name Dose Route Start Last Admin Trade Name Freq PRN Reason Stop Dose Admin Acetaminophen 1,000 mg 02/24/25 09:09 Acetaminophen 500 Mg Tablet PO Q6H PRN Mild Pain (1-3) or Fever Hydrocodone Bitart/Acetaminophen 1 tab 02/24/25 09:09 02/26/25 00:58 Hydrocodone/Acetaminophen (*Crx) 5-325 Mg Tablet PO 1 tab Q4H PRN Administration Pain Rated 4-6 Dextrose 12.5 gm 02/22/25 19:59 Dextrose 50% 25 Gm/50 Ml Syringe IV PUSH PRN PRN Hypoglycemia Protocol Enoxaparin Sodium 40 mg 02/23/25 09:00 02/26/25 08:36 Enoxaparin 40 Mg/0.4 Ml Syringe SUB-Q 40 mg DAILY ADAM Administration Glucagon 1 mg 02/22/25 19:59 Glucagon For Inj 1 Mg Vial IM PRN PRN Hypoglycemia Protocol Glucose 15 gm 02/22/25 19:59 Glucose Oral Gel 15 Gm Of Glucse In 37.5 Gm Tube PO PRN PRN Hypoglycemia Protocol Cefepime HCl 2 gm in 50 mls @ 100 mls/hr 02/22/25 16:00 02/26/25 05:29 Maxipime 2 Gm/Ns 50 Ml IVPB Infused Q12H ADAM Infusion Dextrose 1,000 mls @ 100 mls/hr 02/22/25 19:59 Dextrose 5% 1,000 Ml IVPB PRN PRN Hypoglycemia Protocol Vancomycin HCl 2,000 mg in 500 mls @ 250 mls/hr 02/25/25 14:00 02/26/25 06:25 Vancomycin 2,000 Mg/Ns 500 Ml IVPB 250 mls/hr Q8H ADAM Administration Insulin Aspart 3 - 6 units 02/23/25 08:00 02/26/25 11:51 Insulin Aspart (*Bkc) 100 Units/Ml SUB-Q 5 units TIDWM ADAM Administration Protocol Insulin Aspart 1 - 3 units 02/22/25 21:00 02/25/25 20:11 Insulin Aspart (*Bkc) 100 Units/Ml SUB-Q Not Given HS [facility] Protocol Insulin Aspart 4 units 02/24/25 08:00 02/26/25 11:50 Insulin Aspart (*Bkc) 100 Units/Ml 0.05 units/kg (4 units) 4 units SUB-Q Administration TIDWM [facility] Insulin Glargine 18 units 02/23/25 21:00 02/25/25 20:14 Insulin Glargine (*Bkc) 100 Units/Ml SUB-Q 18 units HS ADAM Administration Metronidazole 500 mg 02/25/25 14:00 02/26/25 06:26 Metronidazole 500 Mg Tablet PO 500 mg Q8HR ADAM Administration Morphine Sulfate 4 mg 02/24/25 09:09 02/26/25 11:48 Morphine Sulfate (*Crx) 4 Mg/Ml Inj IV PUSH 4 mg Q4H PRN Administration Pain Rated 7-10 Nicotine 1 patch 02/22/25 21:04 02/26/25 11:59 Nicotine (*Pbkc) 21 Mg Patch TRANSDERM 1 patch DAILY PRN Administration Nicotine withdrawal Oxycodone HCl 5 mg 02/24/25 09:09 02/26/25 08:36 Oxycodone Hcl (*Crx) 5 Mg Tab Ir PO 5 mg Q4H PRN Administration Pain Rated 7-10 Radiology Results: ITS Impressions Foot X-Ray 02/22/25 14:48 IMPRESSION: 1. Osteomyelitis with cortical erosion and osteomyelitis at the medial base of the right first distal phalanx. Labs Labs: Laboratory Results - last 24 hr 02/25/25 02/25/25 02/26/25 16:42 20:07 06:04 WBC 12.3 H RBC 4.61 Hgb 13.5 L Hct 41.5 L MCV 90.0 MCH 29.3 MCHC 32.5 RDW 13.1 Plt Count 437 H MPV 10.3 Sodium 134 L Potassium 4.1 Chloride 104 Carbon Dioxide 22 Anion Gap 8 BUN 9 D Creatinine 0.54 L Estim Creat Clear Calc 153 Estimated GFR > 60 Glucose 191 H POC Capillary Glucose 251 H 153 H Calcium 9.1 Nasal MRSA (PCR) 02/26/25 02/26/25 02/26/25 07:46 08:34 11:43 WBC RBC Hgb Hct MCV MCH MCHC RDW Plt Count MPV Sodium Potassium Chloride Carbon Dioxide Anion Gap BUN Creatinine Estim Creat Clear Calc Estimated GFR Glucose POC Capillary Glucose 180 H 307 H Calcium Nasal MRSA (PCR) Not detected Quality VTE Prophylaxis VTE prophylaxis: pharmacologic ordered (Lovenox 40 mg subQ daily.)
[2025-02-26 13:41] LABS: Vancomycin Trough 13.9 ug/mL (10.0-20.0)
[2025-02-26 16:28] LABS: Glucose Point of Care 200 mg/dl (65-105)
[2025-02-26] MEDS: INSULIN GLARGINE (*BKC) 100 UNITS/ML 18 UNITS SUB-Q (20:59)
[2025-02-26 21:05] LABS: Glucose Point of Care 347 mg/dl (65-105)
[2025-02-27 04:00] VITALS: PULSE 88
[2025-02-27] MEDS: CEFEPIME 2 GM/NS 50 ML 2 GM/50 ML BAG IVPB (05:38)
[2025-02-27] MEDS: metroNIDAZOLE 500 MG TABLET PO (05:39)
[2025-02-27] MEDS: oxyCODONE HCL (*CRX) 5 MG TAB IR PO ×2 (05:39→12:17)
[2025-02-27 06:00] VITALS: BP 136/84; PULSE 83; RESP 18; TEMP 36.2; O2SAT 100
[2025-02-27 08:00] VITALS: PULSE 85; O2SAT 100
[2025-02-27 08:01] LABS: Glucose Point of Care 223 mg/dl (65-105)
[2025-02-27 08:20] LABS: Hematocrit 41.8 % (42.0-52.0); Hemoglobin 13.5 g/dL (14.0-18.0); Mean Corpuscular HGB Conc 32.3 g/dl (32-36); Mean Corpuscular Hemoglobin 29.1 pg (26-34); Mean Corpuscular Volume 90.1 fl (80-100); Mean Platelet Volume 10.5 fl (7.4-10.4); Platelet Count Result 453 k/mm3 (150-375); Red Blood Count 4.64 M/mm3 (4.6-6.20); Red Cell Distribution Width 13.2 % (11.5-14.5); White Blood Count 13.1 K/mm3 (4.5-10.0)
[2025-02-27] MEDS: INSULIN ASPART (*BKC) 100 UNITS/ML SUB-Q ×4 (08:28→12:19)
[2025-02-27] MEDS: AMOXICILLIN/CLAVULANATE K 875-125 MG TAB 1 TABLET PO (08:29)
[2025-02-27] MEDS: DOXYCYCLINE HYCLATE 100 MG TABLET PO (08:29)
[2025-02-27] MEDS: ENOXAPARIN 40 MG/0.4 ML SYRINGE SUB-Q (08:29)
[2025-02-27 09:02] LABS: Anion Gap 9 mmol/L (4-12); Blood Urea Nitrogen 14 mg/dL (9-20); Calcium 9.3 mg/dL (8.4-10.2); Carbon Dioxide 25 mmol/L (22-30); Chloride 100 mmol/L (98-107); Estimated CRCL calculation 117 ml/min; Estimated Glomerular Filt Rate > 60; Glucose 223 mg/dL (65-110); Potassium 4.5 mmol/L (3.4-5.0); Sodium 134 mmol/L (137-145)
[2025-02-27 12:00] VITALS: PULSE 96
[2025-02-27 12:08] LABS: Glucose Point of Care 289 mg/dl (65-105)
--- NOTE | 2025-02-27 12:57 | P.PNGS_ITS ---
Progress Note: A&P Assessment and Plan (1) Diabetic ulcer of right great toe: Code(s): E11.621 - Type 2 diabetes mellitus with foot ulcer; L97.519 - Non-pressure chronic ulcer of other part of right foot with unspecified severity Status: Acute Assessment and Plan: * Status post right amputation right great toe postop day 3. WBC count up to 13,000 today. The wound appears clean again today. There is mild erythema at the medial aspect of the incision where it is partially closed. There is no extending erythema progressing up his forefoot. There is no purulent drainage or necrotic tissue. Okay to discharge the patient today on oral antibiotics with close follow-up. Will schedule a f/u with Dr. Vasquez in our office on for a wound check and possible suture removal. Continue daily dressing changes with iodoform gauze packing. Patient has been educated on dressing changes and is comfortable with wound care for discharge. (2) Type 2 diabetes mellitus with hyperglycemia, without long-term current use of insulin: Code(s): E11.65 - Type 2 diabetes mellitus with hyperglycemia Status: Acute Assessment and Plan: * Management as per hospitalist. Plan I have discussed the patient's case and plan of care with Dr. Vasquez. Subjective Subjective Date/Time Seen: 02/27/25 12:57 Post Op day: 3 Patient reports: no new complaints, feels better, pain is less and afebrile Interval history: No acute events overnight. Patient educated on wound care by nursing staff and feels comfortable with doing dressing changes at home. He also has a friend who will help assist with dressing changes if needed. He worked with PT and feels comfortable getting up with the postop shoe and heel touch weight-bearing with a walker. He feels he can get around at his house. He also has a kneeled scooter to help with getting around. His WBC count went up to 13,000 today. He reports his amputation pain has actually improved over the past 24 hours. Exam Extrem: Other: Right great toe ray amputation with an open wound that appears clean with some granulating tissue. There is no purulent drainage or necrotic tissue. The subcutaneous flaps remains viable. The wound is partially closed with sutures intact and skin edges approximated in these areas. There appears to be mild erythema at the medial incision and towards the plantar aspect of his foot over the first MTP. This area is fairly tender on exam. No drainage at the incision. He is able move his remaining toes of his right foot which all appeared viable. Objective Data Vital Signs Vital Signs: Vital Signs - 24 hr 02/26/25 13:56 02/26/25 16:00 02/26/25 20:00 Temperature 98.8 F Pulse Rate 82 77 88 Respiratory Rate 18 18 Blood Pressure 136/88 Pulse Oximetry 100 100 Oxygen Delivery Room Air Fraction of Inspired Oxygen 21 02/26/25 20:00 02/26/25 21:31 02/26/25 22:00 Temperature 98 F Pulse Rate 75 74 88 Respiratory Rate 20 18 Blood Pressure 133/75 Pulse Oximetry 94 100 Oxygen Delivery Room Air Fraction of Inspired Oxygen 21 02/26/25 23:47 02/27/25 04:00 02/27/25 06:00 Temperature 97.1 F L Pulse Rate 77 88 83 Respiratory Rate 18 Blood Pressure 136/84 Pulse Oximetry 100 Oxygen Delivery Fraction of Inspired Oxygen 02/27/25 08:00 02/27/25 08:00 Temperature Pulse Rate 85 Respiratory Rate Blood Pressure Pulse Oximetry 100 Oxygen Delivery Room Air Fraction of Inspired Oxygen 21 Intake/Output Intake/Output: Intake & Output 02/24/25 02/25/25 02/26/25 02/27/25 23:59 23:59 23:59 23:59 Intake Total 4120.0 3010 3670 240 Output Total 900 4300 6400 1400 Balance 3220.0 -1290 -2730 -1160 Meds/Results Medications: Active Medications Generic Name Dose Route Start Last Admin Trade Name Freq PRN Reason Stop Dose Admin Acetaminophen 1,000 mg 02/24/25 09:09 Acetaminophen 500 Mg Tablet PO Q6H PRN Mild Pain (1-3) or Fever Hydrocodone Bitart/Acetaminophen 1 tab 02/24/25 09:09 02/26/25 00:58 Hydrocodone/Acetaminophen (*Crx) 5-325 Mg Tablet PO 1 tab Q4H PRN Administration Pain Rated 4-6 Amoxicillin/Clavulanate Potassium 1 tablet 02/27/25 09:00 02/27/25 08:29 Amoxicillin/Clavulanate K 875-125 Mg Tab PO 1 tablet Q12HR ADAM Administration Dextrose 12.5 gm 02/22/25 19:59 Dextrose 50% 25 Gm/50 Ml Syringe IV PUSH PRN PRN Hypoglycemia Protocol Doxycycline Hyclate 100 mg 02/27/25 09:00 02/27/25 08:29 Doxycycline Hyclate 100 Mg Tablet PO 100 mg Q12HR ADAM Administration Enoxaparin Sodium 40 mg 02/23/25 09:00 02/27/25 08:29 Enoxaparin 40 Mg/0.4 Ml Syringe SUB-Q 40 mg DAILY ADAM Administration Glucagon 1 mg 02/22/25 19:59 Glucagon For Inj 1 Mg Vial IM PRN PRN Hypoglycemia Protocol Glucose 15 gm 02/22/25 19:59 Glucose Oral Gel 15 Gm Of Glucse In 37.5 Gm Tube PO PRN PRN Hypoglycemia Protocol Dextrose 1,000 mls @ 100 mls/hr 02/22/25 19:59 Dextrose 5% 1,000 Ml IVPB PRN PRN Hypoglycemia Protocol Insulin Aspart 3 - 6 units 02/23/25 08:00 02/27/25 12:19 Insulin Aspart (*Bkc) 100 Units/Ml SUB-Q 4 units [facility] Administration Protocol Insulin Aspart 1 - 3 units 02/22/25 21:00 02/26/25 20:59 Insulin Aspart (*Bkc) 100 Units/Ml SUB-Q 2 units HS ADAM Administration Protocol Insulin Aspart 4 units 02/24/25 08:00 02/27/25 12:19 Insulin Aspart (*Bkc) 100 Units/Ml 0.05 units/kg (4 units) 4 units SUB-Q Administration [facility]WM [facility] Insulin Glargine 18 units 02/23/25 21:00 02/26/25 20:59 Insulin Glargine (*Bkc) 100 Units/Ml SUB-Q 18 units HS ADAM Administration Morphine Sulfate 4 mg 02/24/25 09:09 02/26/25 11:48 Morphine Sulfate (*Crx) 4 Mg/Ml Inj IV PUSH 4 mg Q4H PRN Administration Pain Rated 7-10 Nicotine 1 patch 02/22/25 21:04 02/26/25 11:59 Nicotine (*Pbkc) 21 Mg Patch TRANSDERM 1 patch DAILY PRN Administration Nicotine withdrawal Oxycodone HCl 5 mg 02/24/25 09:09 02/27/25 12:17 Oxycodone Hcl (*Crx) 5 Mg Tab Ir PO 5 mg Q4H PRN Administration Pain Rated 7-10 Radiology Results: ITS Impressions Foot X-Ray 02/22/25 14:48 IMPRESSION: 1. Osteomyelitis with cortical erosion and osteomyelitis at the medial base of the right first distal phalanx. Labs Labs: Laboratory Results - last 24 hr 02/26/25 02/26/25 02/26/25 12:56 16:23 20:47 WBC RBC Hgb Hct MCV MCH MCHC RDW Plt Count MPV Sodium Potassium Chloride Carbon Dioxide Anion Gap BUN Creatinine Estim Creat Clear Calc Estimated GFR Glucose POC Capillary Glucose 200 H 347 H Calcium Vancomycin Trough 13.9 02/27/25 02/27/25 02/27/25 07:42 07:49 11:48 WBC 13.1 H RBC 4.64 Hgb 13.5 L Hct 41.8 L MCV 90.1 MCH 29.1 MCHC 32.3 RDW 13.2 Plt Count 453 H MPV 10.5 H Sodium 134 L Potassium 4.5 Chloride 100 Carbon Dioxide 25 Anion Gap 9 BUN 14 D Creatinine 0.73 Estim Creat Clear Calc 117 Estimated GFR > 60 Glucose 223 H POC Capillary Glucose 223 H 289 H Calcium 9.3 Vancomycin Trough
[2025-02-27 13:59] VITALS: BP 118/79; PULSE 82; RESP 18; TEMP 35.9; O2SAT 100
--- NOTE | 2025-02-28 11:43 | PCCDE ---
Diabetes education post discharge f/up note: pt was discharged yesterday. Called pt today Pt reports that he was able to obtain all diabetes supplies from pharmacy yesterday. He is on schedule with taking insulin. Pt sts he had some initial trouble using BG meter but eventually was able to figure it out and tested after breakfast today. Pt noted that his meter has Blue tooth; explained he can pair with free pradeep to track BG results. Reviewed sx and tx of hypoglycemia and hyperglycemia; recommended to carry glucose tabs. Overall pt sts he is good to go. Pt reports is scheduled to see surgeon tomorrow and new PCP 03/13 Encouraged to call with questions prn.
== END 2025-02-27 16:36 | disposition home or self-care (01) | DRG 314 ==
LOC: ANHED 16:00 → ANH3MEDSUR 17:22
PROVIDERS: Internal Medicine; Surgery; Admitting Provider General Practice; Emergency Provider Emergency Medicine; Visit Provider Internal Medicine
PROC: 0Y6P0Z0 Detachment at Right 1st Toe, Complete, Open Approach (ICD-10-PCS; principal; 2025-02-24 08:00)
DX: E11.52 Type 2 diabetes mellitus with diabetic peripheral angiopathy with gangrene (principal); I70.261 Atherosclerosis of native arteries of extremities with gangrene, right leg; L97.516 Non-pressure chronic ulcer of other part of right foot with bone involvement without evidence of necrosis; E11.69 Type 2 diabetes mellitus with other specified complication; M86.171 Other acute osteomyelitis, right ankle and foot; E11.621 Type 2 diabetes mellitus with foot ulcer; E11.65 Type 2 diabetes mellitus with hyperglycemia; E11.42 Type 2 diabetes mellitus with diabetic polyneuropathy; H40.9 Unspecified glaucoma; F90.9 Attention-deficit hyperactivity disorder, unspecified type; F43.10 Post-traumatic stress disorder, unspecified; F12.90 Cannabis use, unspecified, uncomplicated; F17.210 Nicotine dependence, cigarettes, uncomplicated
CPT/HCPCS: 36415; 73630; 80048; 80053; 80202; 82948; 83036; 83605; 83735; 85025; 85027; 85610; 85730; 86140; 87040; 87641; 88305; 88311; 96361; 96374; 97161; 97165; 97530; 99285; A9270; J0692; J1650; J1815; J1836; J2003; J2004; J2250; J2270; J2405; J2704; J3010; J3370; J7030; J7120

== ENCOUNTER 2025-04-20 17:37 | Inpatient (IN) | payer MEDICAID, SELFPAY ==
[2025-04-20] VITALS (21 sets, daily range): BP systolic 123–157; BP diastolic 77–93; PULSE 80–96; RESP 16–20; TEMP 36.9–37.1; O2SAT 96–100; BMI 24.6
--- NOTE | ~2025-04-20 | CT_ITS ---
CLINICAL INDICATION: Air within the soft tissues with edema, erythema and transmetatarsal amputation of the great toe 2 months earlier. COMPARISON: Reference is made to a plain radiograph performed on the same day approximately 1 hour ea rlier. TECHNIQUE: Computed tomography (CT) of the right lower extremity was performed following the administ ration of intravenous contrast. The dose-length product was 1237.37 mGy-cm. FINDINGS/OBSERVATIONS: Significant soft tissue swelling is identified within the right foot. Surrounding the site of prior amputation, between the distal metatarsal and the sesamoid bone is a sm all rim-enhancing fluid collection measuring 16 x 9.5 x 7.6 mm. The lucency on plain radiograph likely corresponded to this small fluid collection. No air is appreciated on soft tissue windows within the right foot as suspected on plain radiograph. Redemonstration of the lucency of the distal margin of the first metatarsal for which MRI is recommen ded as follow-up to confirm the presence of osteomyelitis. IMPRESSION: No air is detected within the soft tissues of the right foot as suspected on plain radiograph. The lucency on plain radiograph likely corresponding to a small fluid collection, as detailed above. Significant soft tissue swelling with redemonstration of findings suggestive of osteomyelitis within the distal margin of the first metatarsal at the site of prior amputation. Reviewed, dictated and finalized at location A. IMPRESSION: No air is detected within the soft tissues of the right foot as suspected on pl ain radiograph. The lucency on plain radiograph likely corresponding to a small fluid collectio n, as detailed above. Significant soft tissue swelling with redemonstration of findings suggestive of osteomyelitis within the distal margin of the first metatarsal at the site of prior amputation.
--- NOTE | ~2025-04-20 | US_ITS ---
Duplex Sonography of the right extremity: Indication: Right calf pain Findings: Sagittal and transverse B-mode images as well as color-flow imaging were performed on the r ight femoral and popliteal veins. B-mode examination was done without and with compression in the tr ansverse plane. There is good visualization of the common femoral, proximal profunda femoral, superf icial femoral, greater saphenous, and popliteal veins. Normal flow was seen on color-flow imaging. N ormal compressibility was demonstrated. Visualized calf veins are also patent. There are prominent lymph nodes the right groin, largest measuring 3.3 cm in greatest dimension. Lymp h nodes maintain fatty kumar. Impression: No evidence of deep vein thrombosis involving the right lower extremity. Prominent lymph nodes at the right groin, but with preserved fatty kumar. Reviewed, dictated and finalized at location . Impression: No evidence of deep vein thrombosis involving the right lower extremity. Prominent lymph nodes at the right groin, but with preserved fatty kumar.
--- NOTE | ~2025-04-20 | XR_ITS ---
HISTORY: right foot redness, swelling 2 months after right great toe amputation for osteomyelitis COMPARISON: 02/22/2025 TECHNIQUE: 3 views of the right foot were performed FINDINGS: Post transmetatarsal amputation of the great toe. A sesamoid bone is detected along the medial surface with intervening lucency, likely representing ai r. Significant soft tissue swelling is noted, along with additional foci of air extending along the fasc ial planes worrisome for an ascending infection. Lucency within the distal margin of the first metata rsal, for which osteomyelitis is suspected. IMPRESSION: Air within the soft tissues which are markedly edematous tracking along the fascial plan es for which an ascending infection is suspected. Reviewed, dictated and finalized at location A. IMPRESSION: Air within the soft tissues which are markedly edematous tracking along the fascial planes for which an ascending infection is suspected.
--- OUTSIDE RECORDS SUMMARY | 2025-04-20 18:12 | XMS_ITS | Clinical Summary ---
Author Organization [facility] Address [address] [place] [address] Care Team Providers Care Liberal Arts Teacher Name Role Phone Unavailable Primary Care Provider Unavailabl e Social History Tobacco Use Types Packs/Day Years Used Date Smoking Tobacco: Never Assessed Sex and Gender Information Value Date Recorded Sex Assigned at Not on file Legal Sex Male 8:16 PM CDT Gender Identity Not on file Sexual Orientation Not on file Last Filed Vital Signs Vital Sign Reading Time Taken Comments Blood Pressure 98/60 04/03/2014 3:19 PM CDT Pulse 68 04/03/2014 3:19 PM CDT Temperature - - Respiratory Rate - - Oxygen Saturation - - Inhaled Oxygen Concentration - - Weight 111.6 kg (246 lb) 04/03/2014 3:19 PM CDT Height 180.3 cm (5' 11) 04/03/2014 3:19 PM CDT Body Mass Index 34.31 04/03/2014 3:19 PM CDT Plan of Treatment Health Maintenance Due Date Last Done Comments Colorectal Cancer Screening Colonoscopy (10 Years) 1976 Annual Physical 1979 Hepatitis C 1994 DTaP, Tdap and Td Vaccines ( 1 - Tdap) 1995 Hepatitis B Vaccines (1 of 3 - 19+ 3-dose series) 1995 COVID-19 Vaccine ( - 2023-2 5 season) 2024 Meningococcal B Vaccine Aged Out No l onger eligible based on patient's age to complete this topic Meningococcal Vaccine Aged Out No cheryl maksim eligible based on patient's age to complete this topic Pneumococcal Vaccine: Pediat rics (0 to 5 Years) and At-Risk Patients (6 to 49 Years) Aged Out No longer eligible b ased on patient's age to complete this topic RSV Immunizations Under 20 Months Aged Out No longer eligible based on patient's age to complete this topic
--- OUTSIDE RECORDS SUMMARY | 2025-04-20 18:12 | XMS_ITS | Clinical Summary ---
Author Organization [facility] Address [address] [place] [address] Care Team Providers Care Cigarette Vendor Name Role Phone Unavailable Primary Care Provider Unavailabl e Source Comments [facility],non-owned Affiliates and Associated Physician Practices is amultiple site organization consisting of ambulatory clinics and hospital sitesin [place], [place], [place] and [place]. This disclosure is being madepursuant to the Care Everywhere program and may not contain all information available regarding this patient. Last updated 18.Boundary Allergies No known active allergies Medications * Be aware that medications may not be up to date on this document. Alwaysverify current medications with the patient. doxycycline hyclate 100 MG tablet Take 1 (one) tablet by mouth every 12 hours 02/28/20 25 Active insulin lispro (HumaLOG;ADMel og) 100 UNIT/ML pen INJECT 4 UNITS UNDER THE SKIN THREE TIMES DAILY WITH MEALS. HOLD IF SUGAR BELOW 120 02/28/20 25 Active Acetaminophen Extra Strength 500 MG TABS 02/28/20 25 Active insulin glargine (Lantus SoloStar) penIndications :Type 2 diabetes mellitus with foot ulcer, with long-term current use of insulin (HCC) Inject 18 (eighteen) Units subcutaneously at bedtime 15 mL 1 03/13/20 25 Active rOPINIRole (Requip) 0.5 MG tabletIndicati ons:Restless leg syndrome Take 1 (one) tablet by mouth at bedtime 30 tablet 3 03/13/20 25 Active Continuous Glucose Community Development Manager (Dexcom G7 Community Development Manager) DEVIIndication s:Type 2 diabetes mellitus with foot ulcer, with long-term current use of insulin (HCC) Use 1 device as directed 6 Each 4 03/28/20 25 Active Continuous Glucose Sensor (Dexcom G7 Sensor) MISCIndication s:Type 2 diabetes mellitus with foot ulcer, with long-term current use of insulin ([facility]) Use 1 Each as directed 6 Each 03/28/20 25 Active SOFTCLIX LANCETS MISCIndication s:Type 2 diabetes mellitus with foot ulcer, with long-term current use of insulin ([facility]) Inject 1 Each subcutaneously as directed 300 Each 1 04/10/20 25 Active TRUEplus 5-Bevel Pen Crum 32G X 4 MM MISCIndication s:Type 2 diabetes mellitus with foot ulcer, with long-term current use of insulin ([facility]) USE FOR INSULIN 4 PENS PER DAY FOR BOTH FAST ACTING AND LONG ACTING INSULIN 400 Each 4 04/10/20 25 Active Blood Glucose Monitoring Suppl (CONTOUR NEXT EZ MONITOR) w/Device KITIndications :Type 2 diabetes mellitus with foot ulcer, with long-term current use of insulin ([facility]) Use 1 Each as directed 1 Each 04/10/20 25 Active blood glucose (Command Information CONTOUR NEXT TEST) test stripIndicatio ns:Type 2 diabetes mellitus with foot ulcer, with long-term current use of insulin ([facility]) Use 1 (one) strip 3 times daily,before breakfast/lunch/be dtime 100 strip 11 04/10/20 25 Active Blood Glucose Monitoring Suppl (Accu-Chek Guide Me) w/Device KIT USE TO TEST BLOOD GLUCOSE LEVELS THREE TIMES DAILY 02/28/20 25 025 Discontin ued(Tx Complete) Accu-Chek Guide test strip 3 times daily 02/28/20 25 025 Discontin ued(Reord er) TRUEplus 5-Bevel Pen Crum 32G X 4 MM MISC USE FOR INSULIN 4 PENS PER DAY FOR BOTH FAST ACTING AND LONG ACTING INSULIN 02/28/20 25 025 Discontin ued(Reord er) SOFTCLIX LANCETS MISC USE TO TEST BLOOD GLUCOSE THREE TIMES DAILY 02/28/20 25 025 Discontin ued(Reord er) Continuous Glucose Community Development Manager (Dexcom G7 Community Development Manager) DEVIIndication s:Type 2 diabetes mellitus with foot ulcer, with long-term current use of insulin ([facility]) Use 1 device as directed 6 Each 4 03/19/20 25 025 Discontin ued(Reord er) Continuous Glucose Sensor (Dexcom G7 Sensor) MISCIndication s:Type 2 diabetes mellitus with foot ulcer, with long-term current use of insulin ([facility]) Use 1 Each as directed 6 Each 4 03/20/20 25 025 Discontin ued(Reord er) Accu-Chek Guide test stripIndicatio ns:Type 2 diabetes mellitus with foot ulcer, with long-term current use of insulin ([facility]) Use 3 times daily 300 strip 04/03/20 25 025 Discontin ued(Reord er) SOFTCLIX LANCETS MISCIndication s:Type 2 diabetes mellitus with foot ulcer, with long-term current use of insulin ([facility]) Inject 1 Each subcutaneously as directed 300 Each 04/03/20 25 025 Discontin ued(Reord er) TRUEplus 5-Bevel Pen Crum 32G X 4 MM MISCIndication s:Type 2 diabetes mellitus with foot ulcer, with long-term current use of insulin ([facility]) USE FOR INSULIN 4 PENS PER DAY FOR BOTH FAST ACTING AND LONG ACTING INSULIN 400 Each 04/03/20 25 025 Discontin ued(Reord er) Accu-Chek Guide test stripIndicatio ns:Type 2 diabetes mellitus with foot ulcer, with long-term current use of insulin ([facility]) Use 3 times daily 300 strip 3 04/10/20 25 025 Discontin ued(Tx Complete) Active Problems No known active problems Encounters Date Type Department Care Team Description 04/19/2025 Telephone [facility] Family [address] [phone] Yaneli Lucia MA Refill Request (Po Burris) 04/10/2025 Telephone [facility] [address] [phone] Memo Benítez DO Refill Request 04/10/2025 Orders Only [facility] Family [facility] [address] [facility] [address] [place] [address] Holli Joyce, MILLING OPERATOR-NEWSPAPER INSERTER Type 2 diabetes mellitus with foot ulcer, with long-term current use of insulin (HCC) 04/04/2025 Nurse Triage [facility] [address] [place] [address] Memo Benítez, DO Medication Issue 04/03/2025 Refill [facility] [address] [phone] Memo Benítez, DO MEDICATION REFILL 03/28/2025 Refill [facility] [address] [place] [address] Memo Benítez, DO MEDICATION REFILL 03/23/2025 Nurse Triage [facility] [address] [place] [address] Memo Benítez, Medication Prior Auth Request 03/20/2025 Orders Only [facility] [address] [place] [phone] Cash Wallace PA-C Type 2 diabetes mellitus with foot ulcer, with long-term current use of insulin (HCC) 03/19/2025 Orders Only [facility] [address] [phone] Cash Wallace PA-C Type 2 diabetes mellitus with foot ulcer, with long-term current use of insulin (HCC) 03/19/2025 Nurse Triage [facility] [address] [phone] Memo Benítez DO Med Question 03/13/2025 3:00 PM CDT Office Visit [facility] [address] [phone] Cash Wallace PA-C Type 2 diabetes mellitus with foot ulcer, with long-term current use of insulin (HCC) (Primary Dx); History of amputation of great toe (HCC); Restless leg syndrome from Last 3 Months Immunizations Immunization Administration Dates Next Due TDAP, HISTORIC VACCINE 05/03/2020 Family History Medical History Relation Name Comments Diabetes; unknown type Father Diabetes; unknown type Mother Relation Name Status Comments Father Maternal Grandfather Maternal Grandmother Mother Alive Paternal Grandfather Paternal Grandmother Social History Tobacco Use Types Packs/Day Years Used Date Smoking Tobacco: Every Day Cigarettes Smokeless Tobacco: Never Tobacco Cessation:Ready to Q uit: Not Asked; Counseling Given: Not Answered Alcohol Use Standard Drinks/Week Comments Not Currently 0 (1 standard drink = 0.6 oz pur e alcohol) PHQ-2 Answer Date Recorded Patient Health Questionnaire-2 Score 1 03/13/2025 Sex and Gender Information Value Date Recorded Sex Assigned at Not on file Legal Sex Male 9:02 AM CDT Gender Identity Not on file Sexual Orientation Not on file Last Filed Vital Signs Vital Sign Reading Time Taken Comments Blood Pressure 142/88 03/13/2025 3:14 PM CDT Pulse 83 03/13/2025 3:14 PM CDT Temperature 36.9 C (98.4 F) 03/13/2025 3:14 PM CDT Respiratory Rate - - Oxygen Saturation 98% 03/13/2025 3:14 PM CDT Inhaled Oxygen Concentration - - Weight 82.6 kg (182 lb) 03/13/2025 3:14 PM CDT Height 182.9 cm (6') 03/13/2025 3:14 PM CDT Body Mass Index 24.68 03/13/2025 3:14 PM CDT Plan of Treatment Health Maintenance [...] HIV SCREENING 1991 HEPATITIS C SCREENING 08/23/1994 HEPATITIS B VACCINE (1 of 3 - 19+ 3-dose series) 1995 PNEUMOCOCCAL VACCINE (1 of 2 - PCV) 1995 COVID-19 VACCINE ( - 2023-2 5 season) 2024 INFLUENZA VACCINE (#1) 2025 ZOSTER VACCINE (1 of 2) 2026 DTAP/TDAP/TD VACCINES (2 - T d or Tdap) 05/03/2030 05/03/2020 DEPRESSION SCREENING Completed 03/13/2025 HIB VACCINE Aged Out No longer eligi [...] on patient's age to complete this topic Procedures Procedure Name Priority Date/Time Associated Diagnosis Comments LAB RESULTS ORDER 02/28/2025 from Last 3 Months Results * LAB RESULTS ORDER (02/28/2025) 02/28/2025 Narrative 02/28/2025 Ordered by an unspecified provider. us Scanned Document LAB - THERAPEUTIC DRUG MONITORI NG ORDERABLES Final Result from Last 3 Months Insurance SELF PAY NO INSURANCE Member Subscriber Plan / Payer (Ef fective for All Dates) Name:Brian Watson Member ID:Not on file Relation to Subscriber:Not on file Name:BRIAN WATSON Subscriber ID:Not on file Address: [address] [place] [address] Payer ID:Not on file Group ID:Not on file Type:Self Pay Address: [place], [place]
--- OUTSIDE RECORDS SUMMARY | 2025-04-20 18:12 | XMS_ITS | Encounter Summary ---
Author Organization [facility] Address [address] [place] [address] Care Team Providers Care Erection Shop Supervisor Name Role Phone Unavailable Primary Care Provider Unavailabl e Reason for Visit * Reason Onset Date Comments Refill Request 04/19/2025 Po jose Encounter Details Date Type Department Care Team (Late st Contact Info) Description 04/19/2025 Telephone [facility] - Family Medicine [address] [place] [phone] Yaneli Lucia MA Refill Request (Po Burris) Social History Tobacco Use Types Packs/Day Years Used Date Smoking Tobacco: Every Day Cigarettes Smokeless Tobacco: Never Alcohol Use Standard Drinks/Week Comments Not Currently 0 (1 standard drink = 0.6 oz pur e alcohol) PHQ-2 Answer Date Recorded Patient Health Questionnaire-2 Score 1 03/13/2025 Sex and Gender Information Value Date Recorded Sex Assigned at Not on file Legal Sex Male 9:02 AM CDT Gender Identity Not on file Sexual Orientation Not on file documented as of this encounter Miscellaneous Notes * Telephone Encounter - Yaneli Lucia MA - 04/19/2025 9:59 AM CDT Sp with Sof[facility] at the [facility]. Inquired about any PA's that might be needed for pt to receive his medications & supplies. She stated that the meter was switched to the Contour Meter & is not requiring PA. Asked if there were any other outstanding PA's needed for pt care, she stated no. documented in this encounter Plan of Treatment Not on file documented as of this encounter Visit Diagnoses Not on filedocumented in this encounter
--- OUTSIDE RECORDS SUMMARY | 2025-04-20 18:12 | XMS_ITS | Continuity of Care Document ---
Author Organization [facility] Address [address] [place] [address] Phone Care Team Providers Care Prospecting Driller Name Role Phone Unavailable Unavailable Unavailable Procedures Procedure Date OFFICE/OUTPATIENT VISIT, NEW COLLECTION OF VENOUS BLOOD BY VENIPUNCTU RE COLLECTION OF VENOUS BLOOD BY VENIPUNCTU RE Advance Directives Directive Yes / No Effective Date File Name No Information Encounters Encounter Description Practice Location Reason(s) For Visit Diagnoses Date Provider Providers Copied on Encounter [facility], [address], [place], [place], [id number] , tel:[phone] [facility] No Information 3 No Information OFFICE/OUTPAT IENT VISIT, NEW [facility], [address], [place], [place], [id number] , tel: [phone] [facility] ADHA medication (chief complaint) 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 [address], [place], [place], [id number], . [phone] Family History Family Member Type Diagnosis Age At Onset No Information Payers Payer name Insurance type Covered alliance party ID Authoriza tion(s) No Information Social [...]
--- NOTE | 2025-04-20 18:20 | ED.WOUNDLAC ---
HPI - Wound/Laceration General Chief Complaint: Wound/Laceration <Maura Flynn PA-C - Last Filed: 04/20/25 21:56> Stated Complaint: R foot pain <Maura Flynn PA-C - Last Filed: 04/20/25 21:56> Time Seen by Provider: 04/20/25 17:52 <Maura Flynn PA-C - Last Filed: 04/20/25 21:56> Source: patient <Maura Flynn PA-C - Last Filed: 04/20/25 21:56> Mode of arrival: EMS <Maura Flynn PA-C - Last Filed: 04/20/25 21:56> Limitations: no limitations <Maura Flynn PA-C - Last Filed: 04/20/25 21:56> History of Present Illness HPI narrative: This is a 49 year male that presents to the ER for right foot pain. Reports recent amputation to the right great toe about 2 months ago. Reports over the last couple of days the area has become more painful, red and swollen. Denies abnormal drainage. Denies fevers. <Maura Flynn PA-C - Last Filed: 04/20/25 21:56> Related Data Allergies/Adverse Reactions: Allergies Allergy/AdvReac Type Severity Reaction Status Date / Time No Known Allergies Allergy Verified 04/20/25 17:53 <Maura Flynn PA-C - Last Filed: 04/20/25 21:56> Review of Systems Review of Systems: All systems reviewed & are unremarkable except as noted in HPI and below <Maura Flynn PA-C - Last Filed: 04/20/25 21:56> [facility] Past Medical History Medical History: Medical History PTSD (post-traumatic stress disorder) ADHD Glaucoma Diabetes Tobacco abuse <Maura Flynn PA-C - Last Filed: 04/20/25 21:56> Surgical History Surgical History: Surgical History Amputation of right great toe 02/23/25 Excision of left lower quadrant abdominal wall cyst with sinus tract and 12cm intermediate layered wound closure Dr. Vasquez No history of previous surgery <Maura Flynn PA-C - Last Filed: 04/20/25 21:56> Family History Family History: Family History Father Diabetes mellitus Suicide by drug overdose, Onset Age: 45 Of insulin Depression Mother Diabetes mellitus <Maura Flynn PA-C - Last Filed: 04/20/25 21:56> Social History Social History: Social History Social History: Patient currently lives with a friend. He is single and never been . He has smoked up to a pack of cigarettes per day and started smoking when he was 25. He has cut back to 0.5 packs of cigarettes per day for the last 5 months. He drinks alcohol on rare occasion and only in moderation. Does have a history of experimenting with multiple drugs in the past including cocaine many years ago. He states that he still smokes methamphetamines on an intermittent basis. He smokes marijuana somewhat frequently. The patient reports he is not in contact with his mother. His father when he was young due to overdose of insulin in order to get attention from his mother. Code status: Full code Surrogate decision maker: Andrew Santoyo (friend) Smoking packs per day: 24 Smoking cigarettes per day: 480.0 Years smoked: 24 Smoking pack-years: 576.00 Smoking status: Current every day smoker Tobacco type: cigarettes Second hand tobacco smoke exposure: No Alcohol intake: former Alcohol use details: Fair couple of times a year in small amounts. Substance use: current Substance use type: marijuana and methamphetamine Other substance usage details: Cocaine many years ago. 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 Spiritual care concerns: No <Maura Flynn PA-C - Last Filed: 04/20/25 21:56> Exam Narrative: GENERAL: Disheveled, well-nourished, and in no acute distress. HEAD: Normocephalic, atraumatic. EYES: EOMI. CHEST: No respiratory distress. HEART: Regular rate EXTREMITIES: Normal range of motion. Mild edema about the right foot with overlying redness extending into the lower leg. Normal DP, PT pulses SKIN: Warm, dry, no rash. NEURO: No focal deficits. Alert and oriented x3. PSYCH: Normal mood and affect <Maura Flynn PA-C - Last Filed: 04/20/25 21:56> Course Course Emergency Course: patient updated on workup and recommendation for admission <Maura Flynn PA-C - Last Filed: 04/20/25 21:56> HEEL CURVER/PA Physician Supervision This visit was performed by both a physician and an APC. I performed all aspects of the MDM as documented. <Pradeep Renteria MD - Last Filed: 04/21/25 06:56> Consultations Consultation #1: Spoke with general surgery who will consult <Maura Flynn PA-C - Last Filed: 04/20/25 21:56> Date: 04/20/25 <Maura Flynn PA-C - Last Filed: 04/20/25 21:56> Consultation #2: Spoke with hospitalist about patient and workup who accepts admission <Maura Flynn PA-C - Last Filed: 04/20/25 21:56> Date: 04/20/25 <Maura Flynn PA-C - Last Filed: 04/20/25 21:56> Vital Signs Vital signs: Vital Signs Temperature 37.1 C 04/20/25 17:37 Pulse Rate 96 04/20/25 17:37 Respiratory Rate 16 04/20/25 17:37 Blood Pressure 127/84 04/20/25 17:37 Pulse Oximetry 98 04/20/25 17:37 Oxygen Delivery Room Air 04/20/25 17:37 Temperature 37.0 C 04/21/25 06:00 Pulse Rate 84 04/21/25 06:00 Respiratory Rate 20 04/21/25 06:00 Blood Pressure 125/78 04/21/25 06:00 Pulse Oximetry 99 04/21/25 06:00 Oxygen Delivery Room Air 04/20/25 17:37 <Maura Flynn PA-C - Last Filed: 04/20/25 21:56> Vital Signs Temperature 37.1 C 04/20/25 17:37 Pulse Rate 96 04/20/25 17:37 Respiratory Rate 16 04/20/25 17:37 Blood Pressure 127/84 04/20/25 17:37 Pulse Oximetry 98 04/20/25 17:37 Oxygen Delivery Room Air 04/20/25 17:37 Temperature 37.0 C 04/21/25 06:00 Pulse Rate 84 04/21/25 06:00 Respiratory Rate 20 04/21/25 06:00 Blood Pressure 125/78 04/21/25 06:00 Pulse Oximetry 99 04/21/25 06:00 Oxygen Delivery Room Air 04/20/25 17:37 <Pradeep Renteria MD - Last Filed: 04/21/25 06:56> MDM - Wound/Laceration MDM Narrative Medical decision making narrative: Patient presents to the ER for right foot pain, redness, swelling. Recent great toe amputation. He is afebrile and nontoxic appearing. His vitals are stable. CBC with leukocytosis to 14.4. CRP is 2.5. X-ray showing possible gas in soft tissue. CT obtained for further evaluation. This corresponds to a small fluid collection. No gas detected. Also findings of osteomyelitis at the 1st metatarsal demonstrated. Blood cultures, wound culture obtained. Patient started on IV antibiotics. Surgery is consulted. Will be admitted to the hospitalist for further evaluation <Maura Flynn PA-C - Last Filed: 04/20/25 21:56> Differential Diagnosis Differential diagnosis: Likely abscess and other (cellulitis) <Maura Flynn PA-C - Last Filed: 04/20/25 21:56> Lab Data Attestation: I reviewed the patient's lab results. <Maura Flynn PA-C - Last Filed: 04/20/25 21:56> Result diagrams: 04/21/25 04:50 04/21/25 04:50 <Maura Flynn PA-C - Last Filed: 04/20/25 21:56> Labs: Lab Results 04/20/25 04/20/25 04/20/25 Range/Units 18:28 18:39 20:23 WBC 14.4 H (4.5-10.0) K/mm3 RBC 5.17 (4.6-6.20) M/mm3 Hgb 15.6 (14.0-18.0) g/dL Hct 46.2 (42.0-52.0) % MCV 89.4 (80-100) fl MCH 30.2 (26-34) pg MCHC 33.8 (32-36) g/dl RDW 13.1 (11.5-14.5) % Plt Count 323 (150-375) k/mm3 MPV 11.1 H (7.4-10.4) fl Immature Gran % (Auto) 0.4 (0-0.5) % Neut % (Auto) 83.4 H (45.5-73.1) % Lymph % (Auto) 9.6 L (18.3-44.2) % [place] % (Auto) 5.1 (2.6-8.5) % Eos % (Auto) 0.9 (0-4.4) % Baso % (Auto) 0.6 (0.2-1.2) % Lymph # (Auto) 1.38 (0.9-3.2) K/mm3 [place] # (Auto) 0.7 H (0.1-0.6) K/mm3 Eos # (Auto) 0.1 (0-0.3) K/mm3 Baso # (Auto) 0.1 (0.0-0.1) K/mm3 Abs Immat Gran (auto) 0.06 H (0.00-0.031) K/mm3 Absolute Neuts (auto) 12.0 H (1.3-6.7) K/mm3 Absolute Nucleated RBC 0.000 (0.0-0.012) K/mm3 Nucleated RBC % 0.0 (0.0-0.2) % ESR 11 (0-20) mm/hr Sodium 136 L (137-145) mmol/L Potassium 3.8 (3.4-5.0) mmol/L Chloride 105 (98-107) mmol/L Carbon Dioxide 21 L (22-30) mmol/L Anion Gap 10 (4-12) mmol/L BUN 9 D (9-20) mg/dL Creatinine 0.81 (0.7-1.3) mg/dL Estim Creat Clear Calc 107 ml/min Estimated GFR > 60 (59 - ) Glucose 254 H (65-110) mg/dL Hemoglobin A1c 9.6 H (<5.7) % Lactic Acid 1.7 (0.7-2.0) mmol/L Calcium 9.8 (8.4-10.2) mg/dL Total Bilirubin 1.3 (0.2-1.3) mg/dL AST 20 (17-59) U/L ALT 16 (6-50) U/L Alkaline Phosphatase 74 (38-126) U/L Total Creatine Kinase 64 (55-170) U/L C-Reactive Protein 2.5 H (<1.0) mg/dL Total Protein 8.6 H (6.3-8.2) g/dL Albumin 4.5 (3.5-5.1) g/dL Urine Color Yellow (Yellow) Urine Appearance Clear (Clear) Urine pH 5.5 (5.0-9.0) Ur Specific [place] 1.031 (1.001-1.035) Urine Protein Trace (Negative) mg/dL Urine Glucose (UA) 3+ H (Negative) mg/dL Urine Ketones Negative (Negative) mg/dL Ur Blood (Man) Negative (Negative) Urine Nitrate Negative (Negative) Urine Bilirubin Negative (Negative) Urine Urobilinogen 0.2 (<2.0) mg/dL Leukocyte Esterase Rfl Negative (Negative) CONNER/UL Urine RBC 0-2 (0-2) /hpf Urine WBC 0-5 (0-3) /hpf Ur Squamous Epith Cells None seen (Few) /hpf Urine Bacteria None seen /hpf Urine Casts 0-2 Urine Opiates Screen Negative (Negative) Urine Methadone Screen Negative (Negative) Ur Barbiturates Screen Negative (Negative) Ur Phencyclidine Scrn Negative (Negative) Ur Amphetamine Screen Positive A (Negative) U Benzodiazepines Scrn Negative (Negative) Urine Cocaine Screen Negative (Negative) U Cannabinoids Screen Positive A (Negative) <Maura Flynn PA-C - Last Filed: 04/20/25 21:56> Lab Results 04/20/25 04/20/25 04/20/25 Range/Units 18:28 18:39 20:23 WBC 14.4 H (4.5-10.0) K/mm3 RBC 5.17 (4.6-6.20) M/mm3 Hgb 15.6 (14.0-18.0) g/dL Hct 46.2 (42.0-52.0) % MCV 89.4 (80-100) fl MCH 30.2 (26-34) pg MCHC 33.8 (32-36) g/dl RDW 13.1 (11.5-14.5) % Plt Count 323 (150-375) k/mm3 MPV 11.1 H (7.4-10.4) fl Immature Gran % (Auto) 0.4 (0-0.5) % Neut % (Auto) 83.4 H (45.5-73.1) % Lymph % (Auto) 9.6 L (18.3-44.2) % [place] % (Auto) 5.1 (2.6-8.5) % Eos % (Auto) 0.9 (0-4.4) % Baso % (Auto) 0.6 (0.2-1.2) % Lymph # (Auto) 1.38 (0.9-3.2) K/mm3 [place] # (Auto) 0.7 H (0.1-0.6) K/mm3 Eos # (Auto) 0.1 (0-0.3) K/mm3 Baso # (Auto) 0.1 (0.0-0.1) K/mm3 Abs Immat Gran (auto) 0.06 H (0.00-0.031) K/mm3 Absolute Neuts (auto) 12.0 H (1.3-6.7) K/mm3 Absolute Nucleated RBC 0.000 (0.0-0.012) K/mm3 Nucleated RBC % 0.0 (0.0-0.2) % ESR 11 (0-20) mm/hr Sodium 136 L (137-145) mmol/L Potassium 3.8 (3.4-5.0) mmol/L Chloride 105 (98-107) mmol/L Carbon Dioxide 21 L (22-30) mmol/L Anion Gap 10 (4-12) mmol/L BUN 9 D (9-20) mg/dL Creatinine 0.81 (0.7-1.3) mg/dL Estim Creat Clear Calc 107 ml/min Estimated GFR > 60 (59 - ) Glucose 254 H (65-110) mg/dL Hemoglobin A1c 9.6 H (<5.7) % Lactic Acid 1.7 (0.7-2.0) mmol/L Calcium 9.8 (8.4-10.2) mg/dL Total Bilirubin 1.3 (0.2-1.3) mg/dL AST 20 (17-59) U/L ALT 16 (6-50) U/L Alkaline Phosphatase 74 (38-126) U/L Total Creatine Kinase 64 (55-170) U/L C-Reactive Protein 2.5 H (<1.0) mg/dL Total Protein 8.6 H (6.3-8.2) g/dL Albumin 4.5 (3.5-5.1) g/dL Urine Color Yellow (Yellow) Urine Appearance Clear (Clear) Urine pH 5.5 (5.0-9.0) Ur Specific [place] 1.031 (1.001-1.035) Urine Protein Trace (Negative) mg/dL Urine Glucose (UA) 3+ H (Negative) mg/dL Urine Ketones Negative (Negative) mg/dL Ur Blood (Man) Negative (Negative) Urine Nitrate Negative (Negative) Urine Bilirubin Negative (Negative) Urine Urobilinogen 0.2 (<2.0) mg/dL Leukocyte Esterase Rfl Negative (Negative) CONNER/UL Urine RBC 0-2 (0-2) /hpf Urine WBC 0-5 (0-3) /hpf Ur Squamous Epith Cells None seen (Few) /hpf Urine Bacteria None seen /hpf Urine Casts 0-2 Urine Opiates Screen Negative (Negative) Urine Methadone Screen Negative (Negative) Ur Barbiturates Screen Negative (Negative) Ur Phencyclidine Scrn Negative (Negative) Ur Amphetamine Screen Positive A (Negative) U Benzodiazepines Scrn Negative (Negative) Urine Cocaine Screen Negative (Negative) U Cannabinoids Screen Positive A (Negative) <Pradeep Renteria MD - Last Filed: 04/21/25 06:56> Imaging Data Radiologist's impression: ITS Impressions Foot X-Ray 04/20/25 18:41 IMPRESSION: Air within the soft tissues which are markedly edematous tracking along the fascial planes for which an ascending infection is suspected. Lower Extremity CT 04/20/25 20:42 IMPRESSION: No air is detected within the soft tissues of the right foot as suspected on plain radiograph. The lucency on plain radiograph likely corresponding to a small fluid collection, as detailed above. Significant soft tissue swelling with redemonstration of findings suggestive of osteomyelitis within the distal margin of the first metatarsal at the site of prior amputation. <Maura Flynn PA-C - Last Filed: 04/20/25 21:56> Critical Care Time Critical Care Time Critical Care Time: No <DARLINE Barth Last Filed: 04/20/25 21:56> Discharge Plan Discharge Clinical Impression: Diabetic foot infection <DARLINE Barth Last Filed: 04/20/25 21:56> Patient Disposition: Still a Patient <DARLINE Barth Last Filed: 04/20/25 21:56> Condition: Stable <DARLINE Barth Last Filed: 04/20/25 21:56>
[2025-04-20 18:50] LABS: Hematocrit 46.2 % (42.0-52.0); Hemoglobin 15.6 g/dL (14.0-18.0); Immature Granulocyte Percent A 0.4 % (0-0.5); Lymphocytes Absolute Auto 1.38 K/mm3 (0.9-3.2); Mean Corpuscular HGB Conc 33.8 g/dl (32-36); Mean Corpuscular Hemoglobin 30.2 pg (26-34); Mean Corpuscular Volume 89.4 fl (80-100); Nucleated Red Blood Cells Absolute Auto 0.000 K/mm3 (0.0-0.012); Nucleated Red Blood Cells Perc 0.0 % (0.0-0.2); Platelet Count Result 323 k/mm3 (150-375); Red Blood Count 5.17 M/mm3 (4.6-6.20); White Blood Count 14.4 K/mm3 (4.5-10.0)
[2025-04-20 18:59] LABS: Alanine Aminotransferase 16 U/L (6-50); Albumin Level 4.5 g/dL (3.5-5.1); Alkaline Phosphatase 74 U/L (38-126); Anion Gap 10 mmol/L (4-12); Aspartate Amino Transferase 20 U/L (17-59); Bilirubin,Total 1.3 mg/dL (0.2-1.3); Blood Urea Nitrogen 9 mg/dL (9-20); CRP 2.5 mg/dL (<1.0); Calcium 9.8 mg/dL (8.4-10.2); Carbon Dioxide 21 mmol/L (22-30); Chloride 105 mmol/L (98-107); Creatine Kinase 64 U/L (55-170); Estimated CRCL calculation 107 ml/min; Estimated Glomerular Filt Rate > 60; Glucose 254 mg/dL (65-110); Potassium 3.8 mmol/L (3.4-5.0); Sodium 136 mmol/L (137-145); Total Protein 8.6 g/dL (6.3-8.2)
[2025-04-20] MEDS: LACTATED RINGERS 1,000 ML 999 ML IV CONT (19:30)
[2025-04-20] MEDS: CEFEPIME 2 GM in SODIUM CHLORIDE 0.9% IV 50 ML 100 ML IVPB (20:23)
[2025-04-20 20:41] LABS: Add Urine Microscopic? YES; Appearance Urine Clear (Clear); Glucose Urine UA 3+ mg/dL (Negative); Leukocyte Esterase Ur Negative LEU/UL (Negative); Nitrate Urine Negative (Negative); Non Pathogenic Casts 0-2; Specific Grav Ur 1.031 (1.001-1.035)
[2025-04-20] MEDS: metroNIDAZOLE 500 MG/ISO 100ML 500 MG/100 ML BAG 100 MG IVPB (20:46)
[2025-04-20] MEDS: VANCOMYCIN 2,000 MG/NS 500 ML 2,000 MG/500 ML BAG 250 MG IVPB (20:56)
--- NOTE | 2025-04-20 21:02 | PC.NURSE ---
Pt refused Zofran at this time, states nausea has resolved.
--- NOTE | 2025-04-20 22:07 | P.HP_ITS ---
H&P: HPI History of Present Illness Date/Time: 04/20/25 22:07 Chief Complaint: Foot wound Narrative: This is a very pleasant 49-year-old male patient with past medical history PTSD, ADD, type 2 diabetes mellitus, glaucoma who had a partial amputation of the right great toe [address] Vasquez, who presents to the emergency room today with complaints of having pain, swelling and redness with some drainage in the area of the previous amputation. Patient states there was no acute injury, inciting or traumatic event to cause the area to become red. He notes he was on doxycycline 100 mg for 10 days and finished that approximately 2 weeks ago. He did state that he has been unable to check his glucose for the past 2 weeks because his physician and the pharmacy refused to fill his test strips. I advised the patient that test strips are available over the counter as well without a prescription and he stated that as he has been out of work for several months due to the surgery that he had absolutely no money and was unable to afford any. He stated therefore as a compromise he did not check his glucose and although he did take some insulin he did not take it as he was supposed to. Patient denies any fevers or any other acute complaints. He is a daily tobacco user, occasional user of alcohol and does occasionally smoke methamphetamine. Patient denies any current pain in the affected area and states he has just been trying to take care of it by cleaning with soap and water at home. In the Emergency warm workup was performed that showed normal vital signs, leukocytosis with white blood cell count of 14.4 with left shift, preserved H&H of 15.6 and 46.2 platelets of 323. Unremarkable metabolic panel, lactic normal at 1.7, urinalysis negative for infection. CRP is elevated at 2.5. At the time of admission urine drug screen is pending. Patient is not meeting sepsis criteria, however he does meet SIRS and is a high risk for sepsis. He is initial dose of vancomycin, cefepime and Flagyl. X-ray the right foot showing air within the soft tissues which are markedly edematous tracking along the fascial planes for which an ascending infection is suspected. This was followed up with CT scan of the lower extremity that demonstrated no air detected within the soft tissues of the right foot that was a regionally at explained in suspected on plain films, however there is lucency on the plain radiograph that likely corresponds to a small fluid collection. There is associated soft tissue swelling with redemonstration of findings suggestive of osteomyelitis within the distal margin of the 1st metatarsal at the site of the prior amputation. General surgery, Dr. Wright has been consulted as he is on for Dr. Vasquez, and pt is being admitted in the current setting for continued treatment. Review of Systems Review of Systems: All systems reviewed & are unremarkable except as noted in HPI and below PMFSH Past Medical History Medical History PTSD (post-traumatic stress disorder) ADHD Glaucoma Diabetes Tobacco abuse Surgical History Surgical History Amputation of right great toe 02/23/25 Excision of left lower quadrant abdominal wall cyst with sinus tract and 12cm intermediate layered wound closure Dr. aVsquez No history of previous surgery Family History Family History Father Diabetes mellitus Suicide by drug overdose, Onset Age: 45 Of insulin Depression Mother Diabetes mellitus Social History Social History Social History: Patient currently lives with a friend. He is single and never been . He has smoked up to a pack of cigarettes per day and started smoking when he was 25. He has cut back to 0.5 packs of cigarettes per day for the last 5 months. He drinks alcohol on rare occasion and only in moderation. Does have a history of experimenting with multiple drugs in the past including cocaine many years ago. He states that he still smokes methamphetamines on an intermittent basis. He smokes marijuana somewhat frequently. The patient reports he is not in contact with his mother. His father when he was young due to overdose of insulin in order to get attention from his mother. Code status: Full code Surrogate decision maker: Andrew Santoyo (friend) Smoking packs per day: 1 Smoking cigarettes per day: 20.0 Years smoked: 24 Smoking pack-years: 24.00 Smoking status: Current every day smoker Alcohol intake: current Alcohol use details: Fair couple of times a year in small amounts. Substance use: current Substance use type: amphetamines and methamphetamine Other substance usage details: Cocaine many years ago. Marijuana frequently Last use: 02/18/2025 Do You Feel Safe in your Home?: Yes Lack of Transportation: No Lack of Food: Sometimes True Current Housing: I Have Housing Concerned About Future Housing: Decline to Answer Difficulty Paying Gas/Electric Bills: Decline to Answer Difficulty Paying for Meds: YES Currently Unemployed: No Education: High School Diploma/GED Difficulty w/ Childcare or Family Care: No Living arrangements: with friend(s) Additional occupation/education comments: He works [employer]. Spiritual care concerns: No Meds Home Medications and Allergies Home Medications ?Medication ?Instructions ?Recorded ?Confirmed ?Type blood sugar diagnostic #50 ea 02/27/25 03/30/25 Rx doxycycline hyclate 100 mg tablet 100 mg PO Q12HR #20 tabs 02/27/25 03/30/25 Rx insulin glargine 100 unit/mL (3 18 unit (0.18 mL) subcut QPM #3 mL 02/27/25 03/30/25 Rx mL) subcutaneous pen (Lantus Solostar U-100 Insulin) insulin lispro 100 unit/mL 4 unit (0.04 mL) subcut TID #15 mL 02/27/25 03/30/25 Rx subcutaneous cartridge Allergies Allergy/AdvReac Type Severity Reaction Status Date / Time No Known Allergies Allergy Verified 04/20/25 17:53 Vital Signs Vital Signs - 24 hr 04/20/25 17:37 04/20/25 17:54 04/20/25 17:57 Temperature 98.8 F Pulse Rate 96 90 Respiratory Rate 16 20 Blood Pressure 127/84 125/84 Pulse Oximetry 98 99 99 Oxygen Delivery Room Air 04/20/25 18:01 04/20/25 18:16 04/20/25 18:31 Temperature Pulse Rate Respiratory Rate Blood Pressure 128/87 124/78 123/81 Pulse Oximetry 98 100 Oxygen Delivery 04/20/25 18:45 04/20/25 19:30 04/20/25 19:33 Temperature Pulse Rate 82 Respiratory Rate 20 Blood Pressure 123/77 Pulse Oximetry 100 100 100 Oxygen Delivery 04/20/25 21:01 Temperature Pulse Rate 80 Respiratory Rate 20 Blood Pressure 127/84 Pulse Oximetry 100 Oxygen Delivery Exam Const: General: comfortable and no acute distress HENMT: Face/Nose/Sinus: Normal nares present Mouth: Yes moist mucous membranes Eyes: General: appearance normal, both eyes and all related structures Neck: Neck: supple and no JVD Lymphatic: lymphadenopathy not noted Resp: Effort & Inspection: normal respiratory effort Cardio: Rate: regular rate Rhythm: regular rhythm Heart sounds: no gallops, no murmurs and no rubs GI: GI Palp: Yes Soft to palpation and No Tenderness to palpation present (GI) Auscultation: normal bowel sounds Skin: General skin exam: erythema (Right dorsal foot with some warmth and redness.) Lesions: no lesions noted Rashes: no rashes noted Wounds: wounds noted (Right foot along first metatarsal.) Neuro: Speech: normal speech Motor exam (neuro): 5/5 motor strength present throughout and Normal motor muscle tone present throughout Sensory Exam: normal sensation Extrem: General: normal exam except as noted, edema (trace edema RLE) and no pedal edema Psych: Mental Status: mental status grossly normal Affect: normal affect H&P: Results Labs Labs: Short CBC 04/20/25 Range/Units 18:39 WBC 14.4 H (4.5-10.0) K/mm3 Hgb 15.6 (14.0-18.0) g/dL Hct 46.2 (42.0-52.0) % Plt Count 323 (150-375) k/mm3 BMP 04/20/25 18:39 Sodium 136 L Potassium 3.8 Chloride 105 Carbon Dioxide 21 L BUN 9 D Creatinine 0.81 Glucose 254 H Calcium 9.8 Cardiac Enzymes 04/20/25 Range/Units 18:39 Total Creatine Kinase 64 (55-170) U/L Liver Function 04/20/25 Range/Units 18:39 Total Bilirubin 1.3 (0.2-1.3) mg/dL AST 20 (17-59) U/L ALT 16 (6-50) U/L Alkaline Phosphatase 74 (38-126) U/L Albumin 4.5 (3.5-5.1) g/dL Urine 04/20/25 Range/Units 20:23 Urine Color Yellow (Yellow) Urine Appearance Clear (Clear) Urine pH 5.5 (5.0-9.0) Ur Specific [place] 1.031 (1.001-1.035) Urine Protein Trace (Negative) mg/dL Urine Glucose (UA) 3+ H (Negative) mg/dL Assessment and Plan Assessment and plan (1) Diabetic foot infection: Code(s): E11.628 - Type 2 diabetes mellitus with other skin complications; L08.9 - Local infection of the skin and subcutaneous tissue, unspecified Status: Acute Assessment and Plan: * Recent partial Amputation Right great toe. * Meets SIRS criteria * Consult Gen Sgy * Consult wound care * Continue abx of Vancomycin, Cefepime, and Flagyl * Wound and blood cultures pending. * PRN Pain meds * Trend and monitor labs and VS. (2) Type 2 diabetes mellitus with hyperglycemia, without long-term current use of insulin: Code(s): E11.65 - Type 2 diabetes mellitus with hyperglycemia Status: Chronic Assessment and Plan: * SSI * Check A1C * Hypoglycemic protocol * Diabetic diet * Glucose checks AC and HS. (3) Osteomyelitis: Qualifiers: Laterality: right Osteomyelitis location: foot Osteomyelitis type: chronic, with draining sinus Qualified Code(s): M86.471 - Chronic osteomyelitis with draining sinus, right ankle and foot Code(s): M86.9 - Osteomyelitis, unspecified Status: Acute Assessment and Plan: * Likely Acute on Chronic as evidenced by CT Scan that is independently reviewed by this provider. * Continue IV abx of Vanc, Cefepime and Flagyl * Consult Surgery * Cultures pending. Quality VTE Prophylaxis VTE prophylaxis: mechanical ordered Hospitalist MIPS Advance Care Plan I have confirmed that the patient's Advanced Care Plan is present, code status is documented, or surrogate decision maker is listed in patient medical record.: Yes Medication Reconciliation I have utilized all available resources to obtain, update and review the patients current medications (includes all prescriptions, OTC, herbals, cannabis, and nutritional supplements).: Yes
--- NOTE | 2025-04-20 22:53 | WNDPHOTO ---
PHOTO ONLY - See Nursing Notes and/ or assessments for documentation.
--- NOTE | 2025-04-20 23:14 | ADMGEN ---
This patient, Brian Watson, was admitted to Medical Room 340-01. Patient/family oriented to hospital policies and general routines including ID bracelet, bed and alarms, visiting hours, pain management, procedures, bathroom and other care routines, personal items, smoking policy, room service/diet, and visiting hours. Information on how to activate the Rapid Response Team has been discussed. Patient/Family are encouraged to report perceived risks to care and to ask questions if they do not understand what they are told or what they should do.
[2025-04-20 23:58] LABS: Cannabinoid Screen Urine Positive (Negative)
[2025-04-21 00:08] LABS: Hemoglobin A1C 9.6 % (<5.7)
[2025-04-21] MEDS: INSULIN ASPART (*BKC) 100 UNITS/ML SUB-Q ×3 (00:12→17:52)
[2025-04-21] MEDS: metroNIDAZOLE 500 MG/ISO 100ML 500 MG/100 ML BAG 100 MG IVPB ×3 (05:30→22:06)
[2025-04-21 05:50] LABS: Hematocrit 41.0 % (42.0-52.0); Hemoglobin 13.4 g/dL (14.0-18.0); Immature Granulocyte Percent A 0.6 % (0-0.5); Lymphocytes Absolute Auto 1.94 K/mm3 (0.9-3.2); Mean Corpuscular HGB Conc 32.7 g/dl (32-36); Mean Corpuscular Hemoglobin 29.6 pg (26-34); Mean Corpuscular Volume 90.7 fl (80-100); Nucleated Red Blood Cells Absolute Auto 0.000 K/mm3 (0.0-0.012); Nucleated Red Blood Cells Perc 0.0 % (0.0-0.2); Platelet Count Result 315 k/mm3 (150-375); Red Blood Count 4.52 M/mm3 (4.6-6.20); White Blood Count 10.1 K/mm3 (4.5-10.0)
[2025-04-21 06:00] VITALS: BP 125/78; PULSE 84; RESP 20; TEMP 37; O2SAT 99
[2025-04-21 06:12] LABS: Alanine Aminotransferase 11 U/L (6-50); Albumin Level 3.7 g/dL (3.5-5.1); Alkaline Phosphatase 62 U/L (38-126); Anion Gap 7 mmol/L (4-12); Aspartate Amino Transferase 25 U/L (17-59); Bilirubin,Total 0.8 mg/dL (0.2-1.3); Blood Urea Nitrogen 9 mg/dL (9-20); Calcium 8.9 mg/dL (8.4-10.2); Carbon Dioxide 23 mmol/L (22-30); Chloride 103 mmol/L (98-107); Estimated CRCL calculation 119 ml/min; Estimated Glomerular Filt Rate > 60; Glucose 216 mg/dL (65-110); Magnesium 1.6 mg/dL (1.6-2.3); Potassium 3.6 mmol/L (3.4-5.0); Sodium 133 mmol/L (137-145); Total Protein 6.8 g/dL (6.3-8.2)
[2025-04-21 08:00] VITALS: O2SAT 99
--- NOTE | 2025-04-21 08:34 | P.PNIM_ITS ---
Progress Note: A&P Assessment and Plan (1) Diabetic foot infection: Code(s): E11.628 - Type 2 diabetes mellitus with other skin complications; L08.9 - Local infection of the skin and subcutaneous tissue, unspecified Status: Acute Assessment and Plan: * Recent partial Amputation Right great toe. * Meets SIRS criteria * Consult Gen Sgy * Consult wound care * Continue abx of Vancomycin, Cefepime, and Flagyl * Wound and blood cultures pending. * PRN Pain meds * Trend and monitor labs and VS. (2) Type 2 diabetes mellitus with hyperglycemia, without long-term current use of insulin: Code(s): E11.65 - Type 2 diabetes mellitus with hyperglycemia Status: Chronic Assessment and Plan: * SSI * A1C 9.6% * Hypoglycemic protocol * Diabetic diet * Glucose checks AC and HS. (3) Osteomyelitis: Qualifiers: Laterality: right Osteomyelitis location: foot Osteomyelitis type: chronic, with draining sinus Qualified Code(s): M86.471 - Chronic osteomyelitis with draining sinus, right ankle and foot Code(s): M86.9 - Osteomyelitis, unspecified Status: Acute Assessment and Plan: * Likely Acute on Chronic as evidenced by CT Scan that is independently reviewed by this provider. * Continue IV abx of Vanc, Cefepime and Flagyl * Consult Surgery * Cultures pending. Subjective Date/time seen: 04/21/25 08:34 Interval history: 49-year-old male patient with past medical history PTSD, ADD, type 2 diabetes mellitus, glaucoma who had a partial amputation of the right great toe [address] Vasquez, who presents to the emergency room today with complaints of having pain, swelling and redness with some drainage in the area of the previous amputation. 04/21/2025 Patient sitting comfortably in bed at time examination. Remains afebrile. WBC 10.1 but bloodwork otherwise unremarkable stable. Patient to see general surgery regarding diabetic foot infection wound care consulted. Will continue antibiotic coverage with vancomycin, cefepime and Flagyl. Blood/wound cultures pending. Patient otherwise has no complaints or concerns at this time Review of Systems Review of Systems: All systems reviewed & are unremarkable except as noted in HPI and below Exam Const: General: comfortable and no acute distress HENMT: Face/Nose/Sinus: Normal nares present Mouth: Yes moist mucous membranes Eyes: General: appearance normal, both eyes and all related structures Neck: Neck: supple and no JVD Lymphatic: lymphadenopathy not noted Resp: Effort & Inspection: normal respiratory effort Cardio: Rate: regular rate Rhythm: regular rhythm Heart sounds: no gallops, no murmurs and no rubs GI: Auscultation: normal bowel sounds Skin: General skin exam: erythema (Right dorsal foot with some warmth and redness.), No lesion, No rashes and wounds noted (Right foot along first met atarsal.) Lesions: no lesions noted Rashes: no rashes noted Wounds: wounds noted (Right foot along first metatarsal.) Neuro: Speech: normal speech Motor exam (neuro): 5/5 motor strength present throughout and Normal motor muscle tone present throughout Sensory Exam: normal sensation Extrem: General: normal exam except as noted, edema (trace edema RLE) and no pedal edema Psych: Mental Status: mental status grossly normal Affect: normal affect Objective Data Vital Signs Vital Signs: Vital Signs - 24 hr 04/20/25 17:37 04/20/25 17:54 04/20/25 17:57 Temperature 98.8 F Pulse Rate 96 90 Respiratory Rate 16 20 Blood Pressure 127/84 125/84 Pulse Oximetry 98 99 99 Oxygen Delivery Room Air 04/20/25 18:01 04/20/25 18:16 04/20/25 18:31 Temperature Pulse Rate Respiratory Rate Blood Pressure 128/87 124/78 123/81 Pulse Oximetry 98 100 Oxygen Delivery 04/20/25 18:45 04/20/25 19:30 04/20/25 19:33 Temperature Pulse Rate 82 Respiratory Rate 20 Blood Pressure 123/77 Pulse Oximetry 100 100 100 Oxygen Delivery 04/20/25 19:34 04/20/25 20:01 04/20/25 20:15 Temperature Pulse Rate Respiratory Rate Blood Pressure 143/93 H Pulse Oximetry 100 100 100 Oxygen Delivery 04/20/25 20:31 04/20/25 20:45 04/20/25 21:01 Temperature Pulse Rate 80 Respiratory Rate 20 Blood Pressure 157/88 H 127/84 Pulse Oximetry 100 100 100 Oxygen Delivery 04/20/25 21:01 04/20/25 21:15 04/20/25 21:31 Temperature Pulse Rate Respiratory Rate Blood Pressure 127/84 134/91 H Pulse Oximetry 100 96 100 Oxygen Delivery 04/20/25 21:45 04/20/25 22:01 04/20/25 22:15 Temperature Pulse Rate Respiratory Rate Blood Pressure 133/78 Pulse Oximetry 100 100 100 Oxygen Delivery 04/20/25 23:27 04/21/25 06:00 Temperature 98.4 F 98.6 F Pulse Rate 83 84 Respiratory Rate 20 20 Blood Pressure 126/88 125/78 Pulse Oximetry 100 99 Oxygen Delivery Intake/Output Intake/Output: Intake & Output 04/18/25 04/19/25 04/20/25 04/21/25 23:59 23:59 23:59 23:59 Intake Total 1150 100 Balance 1150 100 Meds/Results Medications: Active Medications Generic Name Dose Route Start Last Admin Trade Name Freq PRN Reason Stop Dose Admin Acetaminophen 1,000 mg 04/20/25 22:33 Acetaminophen 500 Mg Tablet PO Q6H PRN Mild Pain (1-3) or Fever Hydrocodone Bitart/Acetaminophen 1 tab 04/20/25 22:33 Hydrocodone/Acetaminophen (*Crx) 5-325 Mg Tablet PO Q4H PRN Pain Rated 4-6 Dextrose 12.5 gm 04/20/25 22:33 Dextrose 50% 25 Gm/50 Ml Syringe IV PUSH PRN PRN Hypoglycemia Protocol Glucagon 1 mg 04/20/25 22:33 Glucagon For Inj 1 Mg Vial IM PRN PRN Hypoglycemia Protocol Glucose 15 gm 04/20/25 22:33 Glucose Oral Gel 15 Gm Of Glucse In 37.5 Gm Tube PO PRN PRN Hypoglycemia Protocol Cefepime HCl 2 gm/ Sodium 50 mls @ 100 mls/hr 04/21/25 09:00 Chloride IVPB Q12H ADAM Metronidazole 500 mg in 100 mls @ 100 mls/hr 04/21/25 06:00 04/21/25 06:33 Flagyl 500 Mg/Iso Soln 100 Ml IVPB Infused Q8H ADAM Infusion Vancomycin HCl 1,500 mg in 500 mls @ 250 mls/hr 04/21/25 09:00 Vancomycin 1,500 Mg/Ns 500 Ml IVPB Q12H ADAM Dextrose 1,000 mls @ 100 mls/hr 04/20/25 22:33 Dextrose 5% 1,000 Ml IVPB PRN PRN Hypoglycemia Protocol Insulin Aspart 2 - 5 units 04/21/25 08:00 Insulin Aspart (*Bkc) 100 Units/Ml SUB-Q TIDWM ADAM Protocol Insulin Aspart 1 - 2 units 04/20/25 22:40 04/21/25 00:12 Insulin Aspart (*Bkc) 100 Units/Ml SUB-Q 1 units HS [facility] Administration Protocol Insulin Glargine 18 units 04/21/25 21:00 Insulin Glargine (*Bkc) 100 Units/Ml SUB-Q QHS [facility] Morphine Sulfate 2 mg 04/20/25 22:33 Morphine Sulfate (*Crx) 2 Mg/Ml Inj IV PUSH Q4H PRN Pain Rated 7-10 Radiology Results: ITS Impressions Foot X-Ray 04/20/25 18:41 IMPRESSION: Air within the soft tissues which are markedly edematous tracking along the fascial planes for which an ascending infection is suspected. Lower Extremity CT 04/20/25 20:42 IMPRESSION: No air is detected within the soft tissues of the right foot as suspected on plain radiograph. The lucency on plain radiograph likely corresponding to a small fluid collection, as detailed above. Significant soft tissue swelling with redemonstration of findings suggestive of osteomyelitis within the distal margin of the first metatarsal at the site of prior amputation. Labs Labs: Laboratory Results - last 24 hr 04/20/25 04/20/25 04/20/25 18:28 18:39 20:23 WBC 14.4 H RBC 5.17 Hgb 15.6 Hct 46.2 MCV 89.4 MCH 30.2 MCHC 33.8 RDW 13.1 Plt Count 323 MPV 11.1 H Immature Gran % (Auto) 0.4 Neut % (Auto) 83.4 H Lymph % (Auto) 9.6 L [place] % (Auto) 5.1 Eos % (Auto) 0.9 Baso % (Auto) 0.6 Lymph # (Auto) 1.38 [place] # (Auto) 0.7 H Eos # (Auto) 0.1 Baso # (Auto) 0.1 Abs Immat Gran (auto) 0.06 H Absolute Neuts (auto) 12.0 H Absolute Nucleated RBC 0.000 Nucleated RBC % 0.0 ESR 11 Sodium 136 L Potassium 3.8 Chloride 105 Carbon Dioxide 21 L Anion Gap 10 BUN 9 D Creatinine 0.81 Estim Creat Clear Calc 107 Estimated GFR > 60 Glucose 254 H POC Capillary Glucose Hemoglobin A1c 9.6 H Lactic Acid 1.7 Calcium 9.8 Magnesium Total Bilirubin 1.3 AST 20 ALT 16 Alkaline Phosphatase 74 Total Creatine Kinase 64 C-Reactive Protein 2.5 H Total Protein 8.6 H Albumin 4.5 Urine Color Yellow Urine Appearance Clear Urine pH 5.5 Ur Specific Penrose 1.031 Urine Protein Trace Urine Glucose (UA) 3+ H Urine Ketones Negative Ur Blood (Man) Negative Urine Nitrate Negative Urine Bilirubin Negative Urine Urobilinogen 0.2 Leukocyte Esterase Rfl Negative Urine RBC 0-2 Urine WBC 0-5 Ur Squamous Epith Cells None seen Urine Bacteria None seen Urine Casts 0-2 Urine Opiates Screen Negative Urine Methadone Screen Negative Ur Barbiturates Screen Negative Ur Phencyclidine Scrn Negative Ur Amphetamine Screen Positive A U Benzodiazepines Scrn Negative Urine Cocaine Screen Negative U Cannabinoids Screen Positive A 04/21/25 04/21/25 00:04 04:50 WBC 10.1 H RBC 4.52 L Hgb 13.4 L Hct 41.0 L MCV 90.7 MCH 29.6 MCHC 32.7 RDW 13.1 Plt Count 315 MPV 11.1 H Immature Gran % (Auto) 0.6 H Neut % (Auto) 69.1 Lymph % (Auto) 19.3 [place] % (Auto) 8.1 Eos % (Auto) 2.1 Baso % (Auto) 0.8 Lymph # (Auto) 1.94 [place] # (Auto) 0.8 H Eos # (Auto) 0.2 Baso # (Auto) 0.1 Abs Immat Gran (auto) 0.06 H Absolute Neuts (auto) 7.0 H Absolute Nucleated RBC 0.000 Nucleated RBC % 0.0 ESR Sodium 133 L Potassium 3.6 Chloride 103 Carbon Dioxide 23 Anion Gap 7 BUN 9 Creatinine 0.72 Estim Creat Clear Calc 119 Estimated GFR > 60 Glucose 216 H POC Capillary Glucose 247 H Hemoglobin A1c Lactic Acid Calcium 8.9 Magnesium 1.6 Total Bilirubin 0.8 AST 25 ALT 11 Alkaline Phosphatase 62 Total Creatine Kinase C-Reactive Protein Total Protein 6.8 Albumin 3.7 Urine Color Urine Appearance Urine pH Ur Specific Penrose Urine Protein Urine Glucose (UA) Urine Ketones Ur Blood (Man) Urine Nitrate Urine Bilirubin Urine Urobilinogen Leukocyte Esterase Rfl Urine RBC Urine WBC Ur Squamous Epith Cells Urine Bacteria Urine Casts Urine Opiates Screen Urine Methadone Screen Ur Barbiturates Screen Ur Phencyclidine Scrn Ur Amphetamine Screen U Benzodiazepines Scrn Urine Cocaine Screen U Cannabinoids Screen Quality VTE Prophylaxis VTE prophylaxis: mechanical ordered
[2025-04-21] MEDS: CEFEPIME 2 GM in SODIUM CHLORIDE 0.9% IV 50 ML 100 ML IVPB ×2 (08:35→22:06)
[2025-04-21] MEDS: VANCOMYCIN 1,500 MG/NS 500 ML 1,500 MG/500 ML BAG 250 MG IVPB ×2 (09:27→22:06)
--- NOTE | 2025-04-21 12:57 | P.CONGS_ITS ---
Assessment and Plan Assessment and plan (1) Diabetic ulcer of right great toe: Code(s): E11.621 - Type 2 diabetes mellitus with foot ulcer; L97.519 - Non-pressure chronic ulcer of other part of right foot with unspecified severity Status: Acute Assessment and Plan: * The patient is having ongoing wound problems after recent amputation of the right great toe. I do not see any significant signs of gangrene or necrotizing fasciitis that would require emergent surgery. Continue local wound care and IV antibiotics at this time. Will reassess after a couple more days and determine if further amputation needs to be done. Could consider MRI or bone scan to further assess for osteomyelitis. (2) Type 2 diabetes mellitus with hyperglycemia, without long-term current use of insulin: Code(s): E11.65 - Type 2 diabetes mellitus with hyperglycemia Status: Chronic Assessment and Plan: * Continue aggressive glucose control to limit further infectious complications. (3) Tobacco abuse: Code(s): Z72.0 - Tobacco use Status: Acute History of Present Illness Consult details Consult date: 04/21/25 Reason for consult: other (Right foot diabetic ulcer) Requesting physician: Maura Flynn PA-C Narrative: This is a 49-year-old man who I am asked to see for a worsening wound on his right foot. On February 24, 2025 he had undergone right great toe ray amputation for a diabetic foot wound with osteomyelitis. He is homeless and has been having difficulty with maintaining wound care and blood sugar control on his own. The foot wound was healing after the amputation but he had an area that require daily packing changes. This was doing well up until about 3 or 4 days ago when it started becoming more swollen and painful. He presented to the emergency department last night. A CT of his right lower extremity was performed and this showed persistent signs of possible osteomyelitis involving the 1st metatarsal. He was placed on broad-spectrum IV antibiotics and admitted for further treatment. Review of Systems 2 Review of Systems: All systems reviewed & are unremarkable except as noted in HPI and below Eyes: Eyes: Denies change in vision ENT: Denies hearing loss, Denies neck pain and Denies sore throat Cardiovascular: Cardiovascular: Denies chest pain and Denies dyspnea Respiratory: Respiratory: Denies cough, Denies dyspnea and Denies wheezing Genitourinary: Genitourinary: Denies hematuria and Denies dysuria Musculoskeletal: Musculoskeletal: Reports as per HPI Allergic/Immunologic: Allergic/Immunologic: Denies wheezing [facility] Past Medical History Medical History (Updated 04/20/25 @ 22:27 by DAVID Caballero) PTSD (post-traumatic stress disorder) ADHD Glaucoma Diabetes Tobacco abuse Surgical History Surgical History (Updated 04/21/25 @ 13:03 by Jozef Wright DO) Amputation of right great toe No history of previous surgery Family History Family History Father Diabetes mellitus Suicide by drug overdose, Onset Age: 45 Of insulin Depression Mother Diabetes mellitus Social History Social History Social History: Patient currently lives with a friend. He is single and never been . He has smoked up to a pack of cigarettes per day and started smoking when he was 25. He has cut back to 0.5 packs of cigarettes per day for the last 5 months. He drinks alcohol on rare occasion and only in moderation. Does have a history of experimenting with multiple drugs in the past including cocaine many years ago. He states that he still smokes methamphetamines on an intermittent basis. He smokes marijuana somewhat frequently. The patient reports he is not in contact with his mother. His father when he was young due to overdose of insulin in order to get attention from his mother. Code status: Full code Surrogate decision maker: Andrew Santoyo (friend) Smoking packs per day: 24 Smoking cigarettes per day: 480.0 Years smoked: 24 Smoking pack-years: 576.00 Smoking status: Current every day smoker Tobacco type: cigarettes Second hand tobacco smoke exposure: No Alcohol intake: former Alcohol use details: Fair couple of times a year in small amounts. Substance use: current Substance use type: marijuana and methamphetamine Other substance usage details: Cocaine many years ago. Marijuana frequently Last use: 02/18/2025 Do You Feel Safe in your Home?: Yes Lack of Transportation: YES Lack of Food: Sometimes True Current Housing: I Do Not Have Housing Concerned About Future Housing: YES Difficulty Paying Gas/Electric Bills: YES Difficulty Paying for Meds: YES Currently Unemployed: YES Education: High School Diploma/GED Difficulty w/ Childcare or Family Care: No Living arrangements: with friend(s) Additional occupation/education comments: He works [employer]. Spiritual care concerns: No Meds Home Medications and Allergies Home Medications ?Medication ?Instructions ?Recorded ?Confirmed ?Type insulin glargine 100 unit/mL (3 18 unit (0.18 mL) subcut QPM #3 mL 02/27/25 04/20/25 Rx mL) subcutaneous pen (Lantus Solostar U-100 Insulin) insulin lispro 100 unit/mL 4 unit (0.04 mL) subcut TID #15 mL 02/27/25 04/20/25 Rx subcutaneous cartridge Allergies Allergy/AdvReac Type Severity Reaction Status Date / Time No Known Allergies Allergy Verified 04/20/25 17:53 Vital Signs Vital Signs - 24 hr 04/20/25 17:37 04/20/25 17:54 04/20/25 17:57 Temperature 98.8 F Pulse Rate 96 90 Respiratory Rate 16 20 Blood Pressure 127/84 125/84 Pulse Oximetry 98 99 99 Oxygen Delivery Room Air 04/20/25 18:01 04/20/25 18:16 04/20/25 18:31 Temperature Pulse Rate Respiratory Rate Blood Pressure 128/87 124/78 123/81 Pulse Oximetry 98 100 Oxygen Delivery 04/20/25 18:45 04/20/25 19:30 04/20/25 19:33 Temperature Pulse Rate 82 Respiratory Rate 20 Blood Pressure 123/77 Pulse Oximetry 100 100 100 Oxygen Delivery 04/20/25 19:34 04/20/25 20:01 04/20/25 20:15 Temperature Pulse Rate Respiratory Rate Blood Pressure 143/93 H Pulse Oximetry 100 100 100 Oxygen Delivery 04/20/25 20:31 04/20/25 20:45 04/20/25 21:01 Temperature Pulse Rate 80 Respiratory Rate 20 Blood Pressure 157/88 H 127/84 Pulse Oximetry 100 100 100 Oxygen Delivery 04/20/25 21:01 04/20/25 21:15 04/20/25 21:31 Temperature Pulse Rate Respiratory Rate Blood Pressure 127/84 134/91 H Pulse Oximetry 100 96 100 Oxygen Delivery 04/20/25 21:45 04/20/25 22:01 04/20/25 22:15 Temperature Pulse Rate Respiratory Rate Blood Pressure 133/78 Pulse Oximetry 100 100 100 Oxygen Delivery 04/20/25 23:27 04/21/25 06:00 04/21/25 08:00 Temperature 98.4 F 98.6 F Pulse Rate 83 84 Respiratory Rate 20 20 Blood Pressure 126/88 125/78 Pulse Oximetry 100 99 99 Oxygen Delivery Room Air Exam 2 Const: General: alert; No acute distress Orientation/consciousness: patient oriented x3 Limitations: no limitations HENMT: Head: normocephalic and atraumatic Ears: hearing grossly normal bilaterally Face/Nose/Sinus: Normal external nose present and Normal nares present Mouth: Yes Normal oral and palatal mucosa present and Yes moist mucous membranes Eyes: General: appearance normal, both eyes and all related structures C onjunctivae: conjunctivae normal Sclera: sclerae normal Pupils: Equal, round and reactive pupils present EOM: EOMs intact bilaterally Neck: Neck: normal visual inspection, full ROM, no lymphadenopathy, supple and no JVD Lymphatic: no lymphadenopathy noted Chest: Chest palpation & inspection: normal inspection of the chest Resp: Effort & Inspection: normal respiratory effort and able to speak in complete sentences Auscultation: clear to auscultation bilaterally P ercussion: percussion normal Cardio: Jugular venous distension: no JVD Rate: regular rate Rhythm: r egular rhythm Heart sounds: S1 normal heart sound present and S2 normal heart sound present Peripheral pulses: Peripheral pulses 2+ throughout GI: Inspection: normal to inspection Auscultation: normal bowel sounds : General: Yes no CVA tenderness Back/Spine/Pelvis: Back: no CVA tenderness Skin: General skin exam: normal color and dry skin Neuro: General: patient oriented x3, gait normal, moves all extremities, no focal motor deficits and CN's II-XI intact bilaterally Cranial nerves: Yes Equal, round and reactive pupils present Speech: normal speech Extrem: General: normal to inspection and capillary refill normal Other: Status post right great toe amputation, wound along lateral distal aspect of incision with healthy appearing granulation tissue and no tracking. No expressible purulence. Minimal surrounding erythema. Results Labs 04/21/25 04:50 04/21/25 04:50 Labs: Abnormal lab results 04/20/25 04/20/25 04/20/25 Range/Units 18:28 18:39 20:23 WBC 14.4 H (4.5-10.0) K/mm3 RBC (4.6-6.20) M/mm3 Hgb (14.0-18.0) g/dL Hct (42.0-52.0) % MPV 11.1 H (7.4-10.4) fl Immature Gran % (Auto) (0-0.5) % Neut % (Auto) 83.4 H (45.5-73.1) % Lymph % (Auto) 9.6 L (18.3-44.2) % [place] # (Auto) 0.7 H (0.1-0.6) K/mm3 Abs Immat Gran (auto) 0.06 H (0.00-0.031) K/mm3 Absolute Neuts (auto) 12.0 H (1.3-6.7) K/mm3 Sodium 136 L (137-145) mmol/L Carbon Dioxide 21 L (22-30) mmol/L Glucose 254 H (65-110) mg/dL POC Capillary Glucose (65-105) mg/dl Hemoglobin A1c 9.6 H (<5.7) % C-Reactive Protein 2.5 H (<1.0) mg/dL Total Protein 8.6 H (6.3-8.2) g/dL Urine Glucose (UA) 3+ H (Negative) mg/dL Ur Amphetamine Screen Positive A (Negative) U Cannabinoids Screen Positive A (Negative) 04/21/25 04/21/25 04/21/25 Range/Units 00:04 04:50 08:29 WBC 10.1 H (4.5-10.0) K/mm3 RBC 4.52 L (4.6-6.20) M/mm3 Hgb 13.4 L (14.0-18.0) g/dL Hct 41.0 L (42.0-52.0) % MPV 11.1 H (7.4-10.4) fl Immature Gran % (Auto) 0.6 H (0-0.5) % Neut % (Auto) (45.5-73.1) % Lymph % (Auto) (18.3-44.2) % [place] # (Auto) 0.8 H (0.1-0.6) K/mm3 Abs Immat Gran (auto) 0.06 H (0.00-0.031) K/mm3 Absolute Neuts (auto) 7.0 H (1.3-6.7) K/mm3 Sodium 133 L (137-145) mmol/L Carbon Dioxide (22-30) mmol/L Glucose 216 H (65-110) mg/dL POC Capillary Glucose 247 H 208 H (65-105) mg/dl Hemoglobin A1c (<5.7) % C-Reactive Protein (<1.0) mg/dL Total Protein (6.3-8.2) g/dL Urine Glucose (UA) (Negative) mg/dL Ur Amphetamine Screen (Negative) U Cannabinoids Screen (Negative) 04/21/25 Range/Units 11:52 WBC (4.5-10.0) K/mm3 RBC (4.6-6.20) M/mm3 Hgb (14.0-18.0) g/dL Hct (42.0-52.0) % MPV (7.4-10.4) fl Immature Gran % (Auto) (0-0.5) % Neut % (Auto) (45.5-73.1) % Lymph % (Auto) (18.3-44.2) % [place] # (Auto) (0.1-0.6) K/mm3 Abs Immat Gran (auto) (0.00-0.031) K/mm3 Absolute Neuts (auto) (1.3-6.7) K/mm3 Sodium (137-145) mmol/L Carbon Dioxide (22-30) mmol/L Glucose (65-110) mg/dL POC Capillary Glucose 193 H (65-105) mg/dl Hemoglobin A1c (<5.7) % C-Reactive Protein (<1.0) mg/dL Total Protein (6.3-8.2) g/dL Urine Glucose (UA) (Negative) mg/dL Ur Amphetamine Screen (Negative) U Cannabinoids Screen (Negative) Diabetes panel 04/20/25 04/20/25 04/21/25 Range/Units 18:28 18:39 04:50 Sodium 136 L 133 L (137-145) mmol/L Potassium 3.8 3.6 (3.4-5.0) mmol/L Chloride 105 103 (98-107) mmol/L Carbon Dioxide 21 L 23 (22-30) mmol/L BUN 9 D 9 (9-20) mg/dL Creatinine 0.81 0.72 (0.7-1.3) mg/dL Glucose 254 H 216 H (65-110) mg/dL Hemoglobin A1c 9.6 H (<5.7) % Calcium 9.8 8.9 (8.4-10.2) mg/dL AST 20 25 (17-59) U/L ALT 16 11 (6-50) U/L Alkaline Phosphatase 74 62 (38-126) U/L Total Protein 8.6 H 6.8 (6.3-8.2) g/dL Albumin 4.5 3.7 (3.5-5.1) g/dL Calcium panel 04/20/25 04/21/25 Range/Units 18:39 04:50 Calcium 9.8 8.9 (8.4-10.2) mg/dL Albumin 4.5 3.7 (3.5-5.1) g/dL Pituitary panel 04/20/25 04/21/25 Range/Units 18:39 04:50 Sodium 136 L 133 L (137-145) mmol/L Potassium 3.8 3.6 (3.4-5.0) mmol/L Chloride 105 103 (98-107) mmol/L Carbon Dioxide 21 L 23 (22-30) mmol/L BUN 9 D 9 (9-20) mg/dL Creatinine 0.81 0.72 (0.7-1.3) mg/dL Glucose 254 H 216 H (65-110) mg/dL Calcium 9.8 8.9 (8.4-10.2) mg/dL Adrenal panel 04/20/25 04/21/25 Range/Units 18:39 04:50 Sodium 136 L 133 L (137-145) mmol/L Potassium 3.8 3.6 (3.4-5.0) mmol/L Chloride 105 103 (98-107) mmol/L Carbon Dioxide 21 L 23 (22-30) mmol/L BUN 9 D 9 (9-20) mg/dL Creatinine 0.81 0.72 (0.7-1.3) mg/dL Glucose 254 H 216 H (65-110) mg/dL Calcium 9.8 8.9 (8.4-10.2) mg/dL Total Bilirubin 1.3 0.8 (0.2-1.3) mg/dL AST 20 25 (17-59) U/L ALT 16 11 (6-50) U/L Alkaline Phosphatase 74 62 (38-126) U/L Total Protein 8.6 H 6.8 (6.3-8.2) g/dL Albumin 4.5 3.7 (3.5-5.1) g/dL All other labs normal. Imaging Additional studies: ITS Impressions Foot X-Ray 04/20/25 18:41 IMPRESSION: Air within the soft tissues which are markedly edematous tracking along the fascial planes for which an ascending infection is suspected. Lower Extremity CT 04/20/25 20:42 IMPRESSION: No air is detected within the soft tissues of the right foot as suspected on plain radiograph. The lucency on plain radiograph likely corresponding to a small fluid collection, as detailed above. Significant soft tissue swelling with redemonstration of findings suggestive of osteomyelitis within the distal margin of the first metatarsal at the site of prior amputation.
[2025-04-21 14:00] VITALS: BP 121/85; PULSE 75; RESP 16; TEMP 37.1; O2SAT 100
[2025-04-21 22:00] VITALS: BP 112/79; PULSE 81; RESP 20; TEMP 37.2; O2SAT 100
[2025-04-21] MEDS: INSULIN GLARGINE (*BKC) 100 UNITS/ML 18 UNITS SUB-Q (22:13)
[2025-04-22] MEDS: metroNIDAZOLE 500 MG/ISO 100ML 500 MG/100 ML BAG 100 MG IVPB ×3 (05:59→21:28)
[2025-04-22 06:00] VITALS: BP 130/81; PULSE 70; RESP 20; TEMP 36.8; O2SAT 100
--- NOTE | 2025-04-22 07:30 | P.PNIM_ITS ---
Progress Note: A&P Assessment and Plan (1) Diabetic foot infection: Code(s): E11.628 - Type 2 diabetes mellitus with other skin complications; L08.9 - Local infection of the skin and subcutaneous tissue, unspecified Status: Acute Assessment and Plan: * Recent partial Amputation Right great toe. * Meets SIRS criteria * Consult wound care * Continue abx of Vancomycin, Cefepime, and Flagyl * Wound and blood cultures pending. * PRN Pain meds * Trend and monitor labs and VS. * Consult Gen Sgy * Continue IV abx * Monitor over next few days * No surgical intervention at this time (2) Right leg pain: Code(s): M79.604 - Pain in right leg Status: Acute Assessment and Plan: * New onset RLE pain and TTP since yesterday * On exam: No new overlying skin changes, unilateral swelling. DP appreciated * No SOB, O2 demand or need for supplementation (100% O2 on RA) * Burak Doppler US of RLE to r/o DVT * Monitor vital signs, I&Os, shortness of breath and chest pain. Patient is a fall risk * Monitor serum electrolytes, PTT, CBC, WBC, temperature curve and cultures. (3) Type 2 diabetes mellitus with hyperglycemia, without long-term current use of insulin: Code(s): E11.65 - Type 2 diabetes mellitus with hyperglycemia Status: Chronic Assessment and Plan: * SSI * A1C 9.6% * Hypoglycemic protocol * Diabetic diet * Glucose checks AC and HS. (4) Osteomyelitis: Qualifiers: Laterality: right Osteomyelitis location: foot Osteomyelitis type: chronic, with draining sinus Qualified Code(s): M86.471 - Chronic osteomyelitis with draining sinus, right ankle and foot Code(s): M86.9 - Osteomyelitis, unspecified Status: Acute Assessment and Plan: * Likely Acute on Chronic as evidenced by CT Scan that is independently reviewed by this provider. * Continue IV abx of Vanc, Cefepime and Flagyl * Consult Surgery * Cultures pending. Subjective Date/time seen: 04/22/25 07:30 Interval history: 49-year-old male patient with past medical history PTSD, ADD, type 2 diabetes mellitus, glaucoma who had a partial amputation of the right great toe [address] Vasquez, who presents to the emergency room today with complaints of having pain, swelling and redness with some drainage in the area of the previous amputation. 04/22/2025 Patient sitting comfortably in bed at time examination. Denies any chest pain, shortness of breath, n/v or abd pain. Does endorse some right lower calf pain/TTP. No new overlying skin changes or unilateral swelling. Will obtain Burak dop US to r/o DVT, although SCD's have been ordered for entirety of hospitalization. Labs and vitals remain stable. Surgery to continue monitoring foot ulcer. Pt otherwise has no complaints or concerns. Review of Systems Review of Systems: All systems reviewed & are unremarkable except as noted in HPI and below Exam Const: General: comfortable and no acute distress HENMT: Face/Nose/Sinus: Normal nares present Mouth: Yes moist mucous membranes Eyes: General: appearance normal, both eyes and all related structures Neck: Neck: supple and no JVD Lymphatic: lymphadenopathy not noted Resp: Effort & Inspection: normal respiratory effort Cardio: Rate: regular rate Rhythm: regular rhythm Heart sounds: no gallops, no murmurs and no rubs GI: Auscultation: normal bowel sounds Skin: General skin exam: erythema (Right dorsal foot with some warmth and redness.), No lesion, No rashes and wounds noted (Right foot along first metatarsal.) Lesions: no lesions noted Rashes: no rashes noted Wounds: wounds noted (Right foot along first metatarsal.) Other: S/p R 1st toe amputation. Healthy appearing granulation tissue, no tracking, purulence. Minimal erythma. Neuro: Speech: normal speech Motor exam (neuro): 5/5 motor strength present throughout and Normal motor muscle tone present throughout Sensory Exam: normal sensation Extrem: General: normal exam except as noted, edema (trace edema RLE) and no pedal edema Other: TTP to RL extremity. No new overlying skin changes or unilateral sweling Psych: Mental Status: mental status grossly normal Affect: normal affect Objective Data Vital Signs Vital Signs: Vital Signs - 24 hr 04/21/25 08:00 04/21/25 14:00 04/21/25 20:00 Temperature 98.8 F Pulse Rate 75 Respiratory Rate 16 Blood Pressure 121/85 Pulse Oximetry 99 100 Oxygen Delivery Room Air Room Air 04/21/25 22:00 04/22/25 06:00 Temperature 98.9 F 98.3 F Pulse Rate 81 70 Respiratory Rate 20 20 Blood Pressure 112/79 130/81 Pulse Oximetry 100 100 Oxygen Delivery Intake/Output Intake/Output: Intake & Output 04/19/25 04/20/25 04/21/25 04/22/25 23:59 23:59 23:59 23:59 Intake Total 1150 2910 Output Total 1 Balance 1150 2910 -1 Meds/Results Medications: Active Medications Generic Name Dose Route Start Last Admin Trade Name Freq PRN Reason Stop Dose Admin Acetaminophen 1,000 mg 04/20/25 22:33 Acetaminophen 500 Mg Tablet PO Q6H PRN Mild Pain (1-3) or Fever Hydrocodone Bitart/Acetaminophen 1 tab 04/20/25 22:33 Hydrocodone/Acetaminophen (*Crx) 5-325 Mg Tablet PO Q4H PRN Pain Rated 4-6 Dextrose 12.5 gm 04/20/25 22:33 Dextrose 50% 25 Gm/50 Ml Syringe IV PUSH PRN PRN Hypoglycemia Protocol Glucagon 1 mg 04/20/25 22:33 Glucagon For Inj 1 Mg Vial IM PRN PRN Hypoglycemia Protocol Glucose 15 gm 04/20/25 22:33 Glucose Oral Gel 15 Gm Of Glucse In 37.5 Gm Tube PO PRN PRN Hypoglycemia Protocol Cefepime HCl 2 gm/ Sodium 50 mls @ 100 mls/hr 04/21/25 09:00 04/21/25 22:06 Chloride IVPB 100 mls/hr Q12H ADAM Administration Metronidazole 500 mg in 100 mls @ 100 mls/hr 04/21/25 06:00 04/22/25 05:59 Flagyl 500 Mg/Iso Soln 100 Ml IVPB 100 mls/hr Q8H ADAM Administration Vancomycin HCl 1,500 mg in 500 mls @ 250 mls/hr 04/21/25 09:00 04/21/25 22:06 Vancomycin 1,500 Mg/Ns 500 Ml IVPB 250 mls/hr Q12H ADAM Administration Dextrose 1,000 mls @ 100 mls/hr 04/20/25 22:33 Dextrose 5% 1,000 Ml IVPB PRN PRN Hypoglycemia Protocol Insulin Aspart 2 - 5 units 04/21/25 08:00 04/21/25 17:52 Insulin Aspart (*Bkc) 100 Units/Ml SUB-Q 3 units TIDWM ADAM Administration Protocol Insulin Aspart 1 - 2 units 04/20/25 22:40 04/21/25 21:53 Insulin Aspart (*Bkc) 100 Units/Ml SUB-Q Not Given HS COUNTS INCLUDE 234 BEDS AT THE [facility] Protocol Insulin Glargine 18 units 04/21/25 21:00 04/21/25 22:13 Insulin Glargine (*Bkc) 100 Units/Ml SUB-Q 18 units QHS COUNTS INCLUDE 234 BEDS AT THE [facility] Administration Morphine Sulfate 2 mg 04/20/25 22:33 Morphine Sulfate (*Crx) 2 Mg/Ml Inj IV PUSH Q4H PRN Pain Rated 7-10 Radiology Results: ITS Impressions Foot X-Ray 04/20/25 18:41 IMPRESSION: Air within the soft tissues which are markedly edematous tracking along the fascial planes for which an ascending infection is suspected. Lower Extremity CT 04/20/25 20:42 IMPRESSION: No air is detected within the soft tissues of the right foot as suspected on plain radiograph. The lucency on plain radiograph likely corresponding to a small fluid collection, as detailed above. Significant soft tissue swelling with redemonstration of findings suggestive of osteomyelitis within the distal margin of the first metatarsal at the site of prior amputation. Labs Labs: Laboratory Results - last 24 hr 04/21/25 04/21/25 04/21/25 08:29 11:52 17:07 POC Capillary Glucose 208 H 193 H 253 H 04/21/25 20:42 POC Capillary Glucose 177 H Quality VTE Prophylaxis VTE prophylaxis: mechanical ordered
[2025-04-22 08:00] VITALS: O2SAT 100
[2025-04-22 08:08] LABS: Hematocrit 42.0 % (42.0-52.0); Hemoglobin 13.9 g/dL (14.0-18.0); Immature Granulocyte Percent A 0.4 % (0-0.5); Lymphocytes Absolute Auto 1.93 K/mm3 (0.9-3.2); Mean Corpuscular HGB Conc 33.1 g/dl (32-36); Mean Corpuscular Hemoglobin 29.6 pg (26-34); Mean Corpuscular Volume 89.6 fl (80-100); Nucleated Red Blood Cells Absolute Auto 0.000 K/mm3 (0.0-0.012); Nucleated Red Blood Cells Perc 0.0 % (0.0-0.2); Platelet Count Result 302 k/mm3 (150-375); Red Blood Count 4.69 M/mm3 (4.6-6.20); White Blood Count 7.3 K/mm3 (4.5-10.0)
[2025-04-22 08:27] LABS: Estimated CRCL calculation 110 ml/min; Estimated Glomerular Filt Rate > 60
[2025-04-22 08:29] LABS: Alanine Aminotransferase 13 U/L (6-50); Albumin Level 3.6 g/dL (3.5-5.1); Alkaline Phosphatase 56 U/L (38-126); Anion Gap 5 mmol/L (4-12); Aspartate Amino Transferase 20 U/L (17-59); Bilirubin,Total 0.4 mg/dL (0.2-1.3); Blood Urea Nitrogen 10 mg/dL (9-20); Calcium 9.0 mg/dL (8.4-10.2); Carbon Dioxide 25 mmol/L (22-30); Chloride 106 mmol/L (98-107); Estimated CRCL calculation 110 ml/min; Estimated Glomerular Filt Rate > 60; Glucose 165 mg/dL (65-110); Potassium 3.9 mmol/L (3.4-5.0); Sodium 136 mmol/L (137-145); Total Protein 6.8 g/dL (6.3-8.2)
[2025-04-22] MEDS: CEFEPIME 2 GM in SODIUM CHLORIDE 0.9% IV 50 ML 100 ML IVPB ×2 (10:00→21:31)
[2025-04-22] MEDS: VANCOMYCIN 1,500 MG/NS 500 ML 1,500 MG/500 ML BAG 150 MG IVPB (12:02)
[2025-04-22] MEDS: INSULIN ASPART (*BKC) 100 UNITS/ML SUB-Q ×2 (13:03→21:45)
--- NOTE | 2025-04-22 13:08 | P.PNGS_ITS ---
Progress Note: A&P Assessment and Plan (1) Diabetic ulcer of right great toe: Code(s): E11.621 - Type 2 diabetes mellitus with foot ulcer; L97.519 - Non-pressure chronic ulcer of other part of right foot with unspecified severity Status: Acute Assessment and Plan: * Continue local wound care. Silver gel and iodoform gauze packing daily. Continue IV antibiotics. (2) Type 2 diabetes mellitus with hyperglycemia, without long-term current use of insulin: Code(s): E11.65 - Type 2 diabetes mellitus with hyperglycemia Status: Chronic Assessment and Plan: * Continue as per Hospitalist (3) Tobacco abuse: Code(s): Z72.0 - Tobacco use Status: Acute Subjective Subjective Date/Time Seen: 04/22/25 13:08 Interval history: minimal redness or pain today, no fevers. Exam Extrem: Other: Right foot 1st digit amputation site with open wound, good granulation tissue, no purulent drainage or necrotic tissue Objective Data Vital Signs Vital Signs: Vital Signs - 24 hr 04/21/25 14:00 04/21/25 20:00 04/21/25 22:00 Temperature 98.8 F 98.9 F Pulse Rate 75 81 Respiratory Rate 16 20 Blood Pressure 121/85 112/79 Pulse Oximetry 100 100 Oxygen Delivery Room Air 04/22/25 06:00 Temperature 98.3 F Pulse Rate 70 Respiratory Rate 20 Blood Pressure 130/81 Pulse Oximetry 100 Oxygen Delivery Intake/Output Intake/Output: Intake & Output 04/19/25 04/20/25 04/21/25 04/22/25 23:59 23:59 23:59 23:59 Intake Total 1150 2960 480 Output Total 1 Balance 1150 2960 479 Meds/Results Medications: Active Medications Generic Name Dose Route Start Last Admin Trade Name Freq PRN Reason Stop Dose Admin Acetaminophen 1,000 mg 04/20/25 22:33 Acetaminophen 500 Mg Tablet PO Q6H PRN Mild Pain (1-3) or Fever Hydrocodone Bitart/Acetaminophen 1 tab 04/20/25 22:33 Hydrocodone/Acetaminophen (*Crx) 5-325 Mg Tablet PO Q4H PRN Pain Rated 4-6 Dextrose 12.5 gm 04/20/25 22:33 Dextrose 50% 25 Gm/50 Ml Syringe IV PUSH PRN PRN Hypoglycemia Protocol Glucagon 1 mg 04/20/25 22:33 Glucagon For Inj 1 Mg Vial IM PRN PRN Hypoglycemia Protocol Glucose 15 gm 04/20/25 22:33 Glucose Oral Gel 15 Gm Of Glucse In 37.5 Gm Tube PO PRN PRN Hypoglycemia Protocol Cefepime HCl 2 gm/ Sodium 50 mls @ 100 mls/hr 04/21/25 09:00 04/22/25 10:00 Chloride IVPB 100 mls/hr Q12H ADAM Administration Metronidazole 500 mg in 100 mls @ 100 mls/hr 04/21/25 06:00 04/22/25 05:59 Flagyl 500 Mg/Iso Soln 100 Ml IVPB 100 mls/hr Q8H ADAM Administration Dextrose 1,000 mls @ 100 mls/hr 04/20/25 22:33 Dextrose 5% 1,000 Ml IVPB PRN PRN Hypoglycemia Protocol Vancomycin HCl 1,500 mg in 500 mls @ 250 mls/hr 04/22/25 09:00 04/22/25 12:02 Vancomycin 1,500 Mg/Ns 500 Ml IVPB 150 mls/hr Q8H ADAM Administration Insulin Aspart 2 - 5 units 04/21/25 08:00 04/22/25 13:03 Insulin Aspart (*Bkc) 100 Units/Ml SUB-Q 3 units TIDWM ADAM Administration Protocol Insulin Aspart 1 - 2 units 04/20/25 22:40 04/21/25 21:53 Insulin Aspart (*Bkc) 100 Units/Ml SUB-Q Not Given HS ADAM Protocol Insulin Glargine 18 units 04/21/25 21:00 04/21/25 22:13 Insulin Glargine (*Bkc) 100 Units/Ml SUB-Q 18 units QHS ADAM Administration Morphine Sulfate 2 mg 04/20/25 22:33 Morphine Sulfate (*Crx) 2 Mg/Ml Inj IV PUSH Q4H PRN Pain Rated 7-10 Radiology Results: ITS Impressions Foot X-Ray 04/20/25 18:41 IMPRESSION: Air within the soft tissues which are markedly edematous tracking along the fascial planes for which an ascending infection is suspected. Lower Extremity CT 04/20/25 20:42 IMPRESSION: No air is detected within the soft tissues of the right foot as suspected on plain radiograph. The lucency on plain radiograph likely corresponding to a small fluid collection, as detailed above. Significant soft tissue swelling with redemonstration of findings suggestive of osteomyelitis within the distal margin of the first metatarsal at the site of prior amputation. Venous Doppler Study 04/22/25 11:34 Impression: No evidence of deep vein thrombosis involving the right lower extremity. Prominent lymph nodes at the right groin, but with preserved fatty kumar. Labs Labs: Laboratory Results - last 24 hr 04/21/25 04/21/25 04/22/25 17:07 20:42 07:59 WBC 7.3 RBC 4.69 Hgb 13.9 L Hct 42.0 MCV 89.6 MCH 29.6 MCHC 33.1 RDW 13.1 Plt Count 302 MPV 10.2 Immature Gran % (Auto) 0.4 Neut % (Auto) 59.1 Lymph % (Auto) 26.3 [place] % (Auto) 9.7 H Eos % (Auto) 4.0 Baso % (Auto) 0.5 Lymph # (Auto) 1.93 [place] # (Auto) 0.7 H Eos # (Auto) 0.3 Baso # (Auto) 0.0 Abs Immat Gran (auto) 0.03 Absolute Neuts (auto) 4.3 Absolute Nucleated RBC 0.000 Nucleated RBC % 0.0 Sodium 136 L Potassium 3.9 Chloride 106 Carbon Dioxide 25 Anion Gap 5 BUN 10 Creatinine 0.78 Estim Creat Clear Calc Estimated GFR Glucose POC Capillary Glucose 253 H 177 H Calcium Total Bilirubin AST ALT Alkaline Phosphatase Total Protein Albumin Vancomycin Trough 04/22/25 04/22/25 04/22/25 07:59 07:59 07:59 WBC RBC Hgb Hct MCV MCH MCHC RDW Plt Count MPV Immature Gran % (Auto) Neut % (Auto) Lymph % (Auto) [place] % (Auto) Eos % (Auto) Baso % (Auto) Lymph # (Auto) [place] # (Auto) Eos # (Auto) Baso # (Auto) Abs Immat Gran (auto) Absolute Neuts (auto) Absolute Nucleated RBC Nucleated RBC % Sodium Potassium Chloride Carbon Dioxide Anion Gap BUN Creatinine 0.78 Estim Creat Clear Calc 110 110 Estimated GFR > 60 > 60 Glucose 165 H POC Capillary Glucose Calcium 9.0 Total Bilirubin 0.4 AST 20 ALT 13 Alkaline Phosphatase 56 Total Protein 6.8 Albumin 3.6 Vancomycin Trough 10.7 04/22/25 04/22/25 08:28 12:28 WBC RBC Hgb Hct MCV MCH MCHC RDW Plt Count MPV Immature Gran % (Auto) Neut % (Auto) Lymph % (Auto) [place] % (Auto) Eos % (Auto) Baso % (Auto) Lymph # (Auto) [place] # (Auto) Eos # (Auto) Baso # (Auto) Abs Immat Gran (auto) Absolute Neuts (auto) Absolute Nucleated RBC Nucleated RBC % Sodium Potassium Chloride Carbon Dioxide Anion Gap BUN Creatinine Estim Creat Clear Calc Estimated GFR Glucose POC Capillary Glucose 169 H 255 H Calcium Total Bilirubin AST ALT Alkaline Phosphatase Total Protein Albumin Vancomycin Trough
[2025-04-22 14:00] VITALS: BP 124/78; PULSE 72; RESP 16; TEMP 36.9; O2SAT 98
[2025-04-22] MEDS: VANCOMYCIN 1,500 MG/NS 500 ML 1,500 MG/500 ML BAG 250 MG IVPB (21:30)
[2025-04-22] MEDS: INSULIN GLARGINE (*BKC) 100 UNITS/ML 18 UNITS SUB-Q (21:45)
[2025-04-22 22:00] VITALS: BP 134/80; PULSE 70; RESP 20; TEMP 36.9; O2SAT 100
[2025-04-23 04:57] LABS: Hematocrit 42.4 % (42.0-52.0); Hemoglobin 13.9 g/dL (14.0-18.0); Immature Granulocyte Percent A 0.5 % (0-0.5); Lymphocytes Absolute Auto 2.58 K/mm3 (0.9-3.2); Mean Corpuscular HGB Conc 32.8 g/dl (32-36); Mean Corpuscular Hemoglobin 29.4 pg (26-34); Mean Corpuscular Volume 89.6 fl (80-100); Nucleated Red Blood Cells Absolute Auto 0.000 K/mm3 (0.0-0.012); Nucleated Red Blood Cells Perc 0.0 % (0.0-0.2); Platelet Count Result 312 k/mm3 (150-375); Red Blood Count 4.73 M/mm3 (4.6-6.20); White Blood Count 8.5 K/mm3 (4.5-10.0)
[2025-04-23 05:29] LABS: Alanine Aminotransferase 15 U/L (6-50); Albumin Level 3.7 g/dL (3.5-5.1); Alkaline Phosphatase 56 U/L (38-126); Anion Gap 7 mmol/L (4-12); Aspartate Amino Transferase 25 U/L (17-59); Bilirubin,Total 0.4 mg/dL (0.2-1.3); Blood Urea Nitrogen 13 mg/dL (9-20); Calcium 9.2 mg/dL (8.4-10.2); Carbon Dioxide 23 mmol/L (22-30); Chloride 107 mmol/L (98-107); Estimated CRCL calculation 109 ml/min; Estimated Glomerular Filt Rate > 60; Glucose 135 mg/dL (65-110); Potassium 3.9 mmol/L (3.4-5.0); Sodium 137 mmol/L (137-145); Total Protein 6.9 g/dL (6.3-8.2)
[2025-04-23] MEDS: VANCOMYCIN 1,500 MG/NS 500 ML 1,500 MG/500 ML BAG 250 MG IVPB ×2 (05:38→14:46)
[2025-04-23] MEDS: metroNIDAZOLE 500 MG/ISO 100ML 500 MG/100 ML BAG 100 MG IVPB ×3 (05:38→21:17)
[2025-04-23 06:00] VITALS: BP 138/91; PULSE 67; RESP 20; TEMP 36.7; O2SAT 100
--- NOTE | 2025-04-23 07:33 | P.PNIM_ITS ---
Progress Note: A&P Assessment and Plan (1) Diabetic foot infection: Code(s): E11.628 - Type 2 diabetes mellitus with other skin complications; L08.9 - Local infection of the skin and subcutaneous tissue, unspecified Status: Acute Assessment and Plan: * Recent partial Amputation Right great toe. * Meets SIRS criteria * Consult wound care * Continue abx of Vancomycin, Cefepime, and Flagyl * Wound and blood cultures pending. * PRN Pain meds * Trend and monitor labs and VS. * Consult Gen Sgy * Continue IV abx * Monitor over next few days * No surgical intervention at this time * Remains afebrile without leukocytosis. * Blood/wound cultures still pending (2) Right leg pain: Code(s): M79.604 - Pain in right leg Status: Acute Assessment and Plan: * New onset RLE pain and TTP since yesterday * On exam: No new overlying skin changes, unilateral swelling. DP appreciated * No SOB, O2 demand or need for supplementation (100% O2 on RA) * Monitor vital signs, I&Os, shortness of breath and chest pain. Patient is a fall risk * Monitor serum electrolytes, PTT, CBC, WBC, temperature curve and cultures. * [place] Doppler US: No evidence of deep vein thrombosis involving the right lower extremity. Prominent lymph nodes at the right groin, but with preserved fatty kumar. * Denies any pain or swelling today (3) Type 2 diabetes mellitus with hyperglycemia, without long-term current use of insulin: Code(s): E11.65 - Type 2 diabetes mellitus with hyperglycemia Status: Chronic Assessment and Plan: * SSI * A1C 9.6% * Hypoglycemic protocol * Diabetic diet * Glucose checks AC and HS. (4) Osteomyelitis: Qualifiers: Laterality: right Osteomyelitis location: foot Osteomyelitis type: chronic, with draining sinus Qualified Code(s): M86.471 - Chronic osteomyelitis with draining sinus, right ankle and foot Code(s): M86.9 - Osteomyelitis, unspecified Status: Acute Assessment and Plan: * Likely Acute on Chronic as evidenced by CT Scan that is independently reviewed by this provider. * Continue IV abx of Vanc, Cefepime and Flagyl * Cultures pending * General surgery following closely Subjective Date/time seen: 04/23/25 07:33 Interval history: 49-year-old male patient with past medical history PTSD, ADD, type 2 diabetes mellitus, glaucoma who had a partial amputation of the right great toe [address] Vasquez, who presents to the emergency room today with complaints of having pain, swelling and redness with some drainage in the area of the previous amputation. 04/23/2025 Patient sitting comfortably in bed at time examination. No acute overnight events. Denies any chest pain, n/v, abd pain or SOB. States his foot/lower leg feel better today - LE US negative for DVT. Continue to monitor wound with General Surgery following. Blood/wound cultures still pending at this time. Remains afebrile without leukocytosis. Pt otherwise has no complaints/concerns. Review of Systems Review of Systems: All systems reviewed & are unremarkable except as noted in HPI and below Exam Const: General: comfortable and no acute distress HENMT: Face/Nose/Sinus: Normal nares present Mouth: Yes moist mucous membranes Eyes: General: appearance normal, both eyes and all related structures Neck: Neck: supple and no JVD Lymphatic: lymphadenopathy not noted Resp: Effort & Inspection: normal respiratory effort Cardio: Rate: regular rate Rhythm: regular rhythm Heart sounds: no gallops, no murmurs and no rubs GI: Auscultation: normal bowel sounds Skin: General skin exam: erythema (Right dorsal foot with some warmth and redness.), No lesion, No rashes and wounds noted (Right foot along first metatarsal.) Lesions: no lesions noted Rashes: no rashes noted Wounds: wounds noted (Right foot along first metatarsal.) Other: S/p R 1st toe amputation. Healthy appearing granulation tissue, no tracking, purulence. Minimal erythma. Neuro: Speech: normal speech Motor exam (neuro): 5/5 motor strength present throughout and Normal motor muscle tone present throughout Sensory Exam: normal sensation Extrem: General: normal exam except as noted, edema (trace edema RLE) and no pedal edema Other: TTP to RL extremity. No new overlying skin changes or unilateral sweling Psych: Mental Status: mental status grossly normal Affect: normal affect Objective Data Vital Signs Vital Signs: Vital Signs - 24 hr 04/22/25 08:00 04/22/25 14:00 04/22/25 20:00 Temperature 98.4 F Pulse Rate 72 Respiratory Rate 16 Blood Pressure 124/78 Pulse Oximetry 100 98 Oxygen Delivery Room Air Room Air 04/22/25 22:00 Temperature 98.5 F Pulse Rate 70 Respiratory Rate 20 Blood Pressure 134/80 Pulse Oximetry 100 Oxygen Delivery Intake/Output Intake/Output: Intake & Output 04/20/25 04/21/25 04/22/25 04/23/25 23:59 23:59 23:59 23:59 Intake Total 1150 2960 3390 Output Total 1 Balance 1150 2960 3389 Meds/Results Medications: Active Medications Generic Name Dose Route Start Last Admin Trade Name Freq PRN Reason Stop Dose Admin Acetaminophen 1,000 mg 04/20/25 22:33 Acetaminophen 500 Mg Tablet PO Q6H PRN Mild Pain (1-3) or Fever Hydrocodone Bitart/Acetaminophen 1 tab 04/20/25 22:33 Hydrocodone/Acetaminophen (*Crx) 5-325 Mg Tablet PO Q4H PRN Pain Rated 4-6 Dextrose 12.5 gm 04/20/25 22:33 Dextrose 50% 25 Gm/50 Ml Syringe IV PUSH PRN PRN Hypoglycemia Protocol Glucagon 1 mg 04/20/25 22:33 Glucagon For Inj 1 Mg Vial IM PRN PRN Hypoglycemia Protocol Glucose 15 gm 04/20/25 22:33 Glucose Oral Gel 15 Gm Of Glucse In 37.5 Gm Tube PO PRN PRN Hypoglycemia Protocol Cefepime HCl 2 gm/ Sodium 50 mls @ 100 mls/hr 04/21/25 09:00 04/22/25 21:31 Chloride IVPB 100 mls/hr Q12H ADAM Administration Metronidazole 500 mg in 100 mls @ 100 mls/hr 04/21/25 06:00 04/23/25 05:38 Flagyl 500 Mg/Iso Soln 100 Ml IVPB 100 mls/hr Q8H ADAM Administration Dextrose 1,000 mls @ 100 mls/hr 04/20/25 22:33 Dextrose 5% 1,000 Ml IVPB PRN PRN Hypoglycemia Protocol Vancomycin HCl 1,500 mg in 500 mls @ 250 mls/hr 04/22/25 22:00 04/23/25 05:38 Vancomycin 1,500 Mg/Ns 500 Ml IVPB 250 mls/hr Q8H ADAM Administration Insulin Aspart 2 - 5 units 04/21/25 08:00 04/22/25 18:29 Insulin Aspart (*Bkc) 100 Units/Ml SUB-Q Not Given TIDWM ADAM Protocol Insulin Aspart 1 - 2 units 04/20/25 22:40 04/22/25 21:45 Insulin Aspart (*Bkc) 100 Units/Ml SUB-Q 1 units HS [facility] Administration Protocol Insulin Glargine 18 units 04/21/25 21:00 04/22/25 21:45 Insulin Glargine (*Bkc) 100 Units/Ml SUB-Q 18 units QHS ADAM Administration Morphine Sulfate 2 mg 04/20/25 22:33 Morphine Sulfate (*Crx) 2 Mg/Ml Inj IV PUSH Q4H PRN Pain Rated 7-10 Radiology Results: ITS Impressions Foot X-Ray 04/20/25 18:41 IMPRESSION: Air within the soft tissues which are markedly edematous tracking along the fascial planes for which an ascending infection is suspected. Lower Extremity CT 04/20/25 20:42 IMPRESSION: No air is detected within the soft tissues of the right foot as suspected on plain radiograph. The lucency on plain radiograph likely corresponding to a small fluid collection, as detailed above. Significant soft tissue swelling with redemonstration of findings suggestive of osteomyelitis within the distal margin of the first metatarsal at the site of prior amputation. Venous Doppler Study 04/22/25 11:34 Impression: No evidence of deep vein thrombosis involving the right lower extremity. Prominent lymph nodes at the right groin, but with preserved fatty kumar. Labs Labs: Laboratory Results - last 24 hr 04/22/25 04/22/25 04/22/25 07:59 07:59 07:59 WBC 7.3 RBC 4.69 Hgb 13.9 L Hct 42.0 MCV 89.6 MCH 29.6 MCHC 33.1 RDW 13.1 Plt Count 302 MPV 10.2 Immature Gran % (Auto) 0.4 Neut % (Auto) 59.1 Lymph % (Auto) 26.3 [place] % (Auto) 9.7 H Eos % (Auto) 4.0 Baso % (Auto) 0.5 Lymph # (Auto) 1.93 [place] # (Auto) 0.7 H Eos # (Auto) 0.3 Baso # (Auto) 0.0 Abs Immat Gran (auto) 0.03 Absolute Neuts (auto) 4.3 Absolute Nucleated RBC 0.000 Nucleated RBC % 0.0 Sodium 136 L Potassium 3.9 Chloride 106 Carbon Dioxide 25 Anion Gap 5 BUN 10 Creatinine 0.78 0.78 Estim Creat Clear Calc 110 110 Estimated GFR > 60 Glucose POC Capillary Glucose Calcium Total Bilirubin AST ALT Alkaline Phosphatase Total Protein Albumin Vancomycin Trough 04/22/25 04/22/25 04/22/25 07:59 08:28 12:28 WBC RBC Hgb Hct MCV MCH MCHC RDW Plt Count MPV Immature Gran % (Auto) Neut % (Auto) Lymph % (Auto) [place] % (Auto) Eos % (Auto) Baso % (Auto) Lymph # (Auto) [place] # (Auto) Eos # (Auto) Baso # (Auto) Abs Immat Gran (auto) Absolute Neuts (auto) Absolute Nucleated RBC Nucleated RBC % Sodium Potassium Chloride Carbon Dioxide Anion Gap BUN Creatinine Estim Creat Clear Calc Estimated GFR > 60 Glucose 165 H POC Capillary Glucose 169 H 255 H Calcium 9.0 Total Bilirubin 0.4 AST 20 ALT 13 Alkaline Phosphatase 56 Total Protein 6.8 Albumin 3.6 Vancomycin Trough 10.7 04/22/25 04/23/25 17:16 04:43 WBC 8.5 RBC 4.73 Hgb 13.9 L Hct 42.4 MCV 89.6 MCH 29.4 MCHC 32.8 RDW 13.0 Plt Count 312 MPV 10.4 Immature Gran % (Auto) 0.5 Neut % (Auto) 54.7 Lymph % (Auto) 30.5 [place] % (Auto) 8.9 H Eos % (Auto) 4.7 H Baso % (Auto) 0.7 Lymph # (Auto) 2.58 [place] # (Auto) 0.8 H Eos # (Auto) 0.4 H Baso # (Auto) 0.1 Abs Immat Gran (auto) 0.04 H Absolute Neuts (auto) 4.6 Absolute Nucleated RBC 0.000 Nucleated RBC % 0.0 Sodium 137 Potassium 3.9 Chloride 107 Carbon Dioxide 23 Anion Gap 7 BUN 13 Creatinine 0.79 Estim Creat Clear Calc 109 Estimated GFR > 60 Glucose 135 H POC Capillary Glucose 135 H Calcium 9.2 Total Bilirubin 0.4 AST 25 ALT 15 Alkaline Phosphatase 56 Total Protein 6.9 Albumin 3.7 Vancomycin Trough Quality VTE Prophylaxis VTE prophylaxis: mechanical ordered
[2025-04-23 08:00] VITALS: O2SAT 100
--- NOTE | 2025-04-23 08:03 | PCWOUND ---
WOCN NOTE WOCN received referral for assessment of wound. Patient is being followed by general surgery. No WOCN assessment needed at this time.
[2025-04-23] MEDS: CEFEPIME 2 GM in SODIUM CHLORIDE 0.9% IV 50 ML 100 ML IVPB ×2 (09:30→21:08)
--- NOTE | 2025-04-23 10:23 | P.PNGS_ITS ---
Progress Note: A&P Assessment and Plan (1) Diabetic ulcer of right great toe: Code(s): E11.621 - Type 2 diabetes mellitus with foot ulcer; L97.519 - Non-pressure chronic ulcer of other part of right foot with unspecified severity Status: Acute Assessment and Plan: * Continue local wound care. Silver gel and iodoform gauze packing daily. Continue IV antibiotics. Cultures pending. (2) Type 2 diabetes mellitus with hyperglycemia, without long-term current use of insulin: Code(s): E11.65 - Type 2 diabetes mellitus with hyperglycemia Status: Chronic Assessment and Plan: * Continue as per Hospitalist (3) Tobacco abuse: Code(s): Z72.0 - Tobacco use Status: Acute Plan Discussed patient's case and plan of care with Dr. Wright. Subjective Subjective Date/Time Seen: 04/23/25 10:23 Patient reports: no new complaints and tolerating a regular diet Interval history: Patient doing well today. He does say that he has some nausea and slightly decreased appetite, but believes that this may be due to the medications. Having regular bowel movements and voiding appropriately. Afebrile. Normal white blood cell count. Iodoform packing changed today at bedside. Exam Extrem: General: normal to inspection and capillary refill normal Other: Right foot 1st digit amputation site with open wound, good granulation tissue with some yellow slough. Small area of tracking posteriorly towards heel about 1 cm deep. No areas of fluctuance or purulence drainage expressed. No signs of tissue necrosis. No surrounding erythema or edema. Objective Data Vital Signs Vital Signs: Vital Signs - 24 hr 04/22/25 14:00 04/22/25 20:00 04/22/25 22:00 Temperature 98.4 F 98.5 F Pulse Rate 72 70 Respiratory Rate 16 20 Blood Pressure 124/78 134/80 Pulse Oximetry 98 100 Oxygen Delivery Room Air 04/23/25 06:00 Temperature 98.0 F Pulse Rate 67 Respiratory Rate 20 Blood Pressure 138/91 H Pulse Oximetry 100 Oxygen Delivery Intake/Output Intake/Output: Intake & Output 04/20/25 04/21/25 04/22/25 04/23/25 23:59 23:59 23:59 23:59 Intake Total 1150 2960 3440 550 Output Total 1 Balance 1150 2960 3439 550 Meds/Results Medications: Active Medications Generic Name Dose Route Start Last Admin Trade Name Freq PRN Reason Stop Dose Admin Acetaminophen 1,000 mg 04/20/25 22:33 Acetaminophen 500 Mg Tablet PO Q6H PRN Mild Pain (1-3) or Fever Hydrocodone Bitart/Acetaminophen 1 tab 04/20/25 22:33 Hydrocodone/Acetaminophen (*Crx) 5-325 Mg Tablet PO Q4H PRN Pain Rated 4-6 Dextrose 12.5 gm 04/20/25 22:33 Dextrose 50% 25 Gm/50 Ml Syringe IV PUSH PRN PRN Hypoglycemia Protocol Glucagon 1 mg 04/20/25 22:33 Glucagon For Inj 1 Mg Vial IM PRN PRN Hypoglycemia Protocol Glucose 15 gm 04/20/25 22:33 Glucose Oral Gel 15 Gm Of Glucse In 37.5 Gm Tube PO PRN PRN Hypoglycemia Protocol Cefepime HCl 2 gm/ Sodium 50 mls @ 100 mls/hr 04/21/25 09:00 04/23/25 09:30 Chloride IVPB 100 mls/hr Q12H ADAM Administration Metronidazole 500 mg in 100 mls @ 100 mls/hr 04/21/25 06:00 04/23/25 05:38 Flagyl 500 Mg/Iso Soln 100 Ml IVPB 100 mls/hr Q8H ADAM Administration Dextrose 1,000 mls @ 100 mls/hr 04/20/25 22:33 Dextrose 5% 1,000 Ml IVPB PRN PRN Hypoglycemia Protocol Vancomycin HCl 1,500 mg in 500 mls @ 250 mls/hr 04/22/25 22:00 04/23/25 05:38 Vancomycin 1,500 Mg/Ns 500 Ml IVPB 250 mls/hr Q8H ADAM Administration Insulin Aspart 2 - 5 units 04/21/25 08:00 04/23/25 09:31 Insulin Aspart (*Bkc) 100 Units/Ml SUB-Q Not Given TIDWM [facility] Protocol Insulin Aspart 1 - 2 units 04/20/25 22:40 04/22/25 21:45 Insulin Aspart (*Bkc) 100 Units/Ml SUB-Q 1 units HS ADAM Administration Protocol Insulin Glargine 18 units 04/21/25 21:00 04/22/25 21:45 Insulin Glargine (*Bkc) 100 Units/Ml SUB-Q 18 units QHS ADAM Administration Morphine Sulfate 2 mg 04/20/25 22:33 Morphine Sulfate (*Crx) 2 Mg/Ml Inj IV PUSH Q4H PRN Pain Rated 7-10 Radiology Results: ITS Impressions Foot X-Ray 04/20/25 18:41 IMPRESSION: Air within the soft tissues which are markedly edematous tracking along the fascial planes for which an ascending infection is suspected. Lower Extremity CT 04/20/25 20:42 IMPRESSION: No air is detected within the soft tissues of the right foot as suspected on plain radiograph. The lucency on plain radiograph likely corresponding to a small fluid collection, as detailed above. Significant soft tissue swelling with redemonstration of findings suggestive of osteomyelitis within the distal margin of the first metatarsal at the site of prior amputation. Venous Doppler Study 04/22/25 11:34 Impression: No evidence of deep vein thrombosis involving the right lower extremity. Prominent lymph nodes at the right groin, but with preserved fatty kumar. Labs Labs: Laboratory Results - last 24 hr 04/22/25 04/22/25 04/22/25 12:28 17:16 21:36 WBC RBC Hgb Hct MCV MCH MCHC RDW Plt Count MPV Immature Gran % (Auto) Neut % (Auto) Lymph % (Auto) [place] % (Auto) Eos % (Auto) Baso % (Auto) Lymph # (Auto) [place] # (Auto) Eos # (Auto) Baso # (Auto) Abs Immat Gran (auto) Absolute Neuts (auto) Absolute Nucleated RBC Nucleated RBC % Sodium Potassium Chloride Carbon Dioxide Anion Gap BUN Creatinine Estim Creat Clear Calc Estimated GFR Glucose POC Capillary Glucose 255 H 135 H 207 H Calcium Total Bilirubin AST ALT Alkaline Phosphatase Total Protein Albumin 04/23/25 04/23/25 04:43 08:00 WBC 8.5 RBC 4.73 Hgb 13.9 L Hct 42.4 MCV 89.6 MCH 29.4 MCHC 32.8 RDW 13.0 Plt Count 312 MPV 10.4 Immature Gran % (Auto) 0.5 Neut % (Auto) 54.7 Lymph % (Auto) 30.5 [place] % (Auto) 8.9 H Eos % (Auto) 4.7 H Baso % (Auto) 0.7 Lymph # (Auto) 2.58 [place] # (Auto) 0.8 H Eos # (Auto) 0.4 H Baso # (Auto) 0.1 Abs Immat Gran (auto) 0.04 H Absolute Neuts (auto) 4.6 Absolute Nucleated RBC 0.000 Nucleated RBC % 0.0 Sodium 137 Potassium 3.9 Chloride 107 Carbon Dioxide 23 Anion Gap 7 BUN 13 Creatinine 0.79 Estim Creat Clear Calc 109 Estimated GFR > 60 Glucose 135 H POC Capillary Glucose 124 H Calcium 9.2 Total Bilirubin 0.4 AST 25 ALT 15 Alkaline Phosphatase 56 Total Protein 6.9 Albumin 3.7
[2025-04-23 14:00] VITALS: BP 118/76; PULSE 69; RESP 18; O2SAT 100
[2025-04-23 18:40] VITALS: BP 136/93; PULSE 85; RESP 20; TEMP 36.6; O2SAT 100
--- NOTE | 2025-04-23 18:59 | ADMGEN ---
This patient, Brian Watson, was admitted to Intensive Care Unit-5. Patient/family oriented to hospital policies and general routines including ID bracelet, bed and alarms, visiting hours, pain management, procedures, bathroom and other care routines, personal items, smoking policy, room service/diet, and visiting hours. Information on how to activate the Rapid Response Team has been discussed. Patient/Family are encouraged to report perceived risks to care and to ask questions if they do not understand what they are told or what they should do.
--- NOTE | 2025-04-23 18:59 | PC.NURSE ---
Patient transferred to ICU room 5, with assistance from security. Discussed with patient suicide precautions. Room safety check preformed and patent oriented to room. Vitals obtained. Patient still expressing suicidal ideation at this time. Sitter at bedside. RN to monitor.
--- NOTE | 2025-04-23 19:41 | PC.NURSE ---
On Wednesday04/22/25, the patient asked this nurse to speak with a mobile crane operator if available. He stated he is suffering from anxiety due to his current living circumstances and would like some spiritual guidance. On Wednesday, the [facility] house mobile crane operator visited the patient in his room and spoke to him for approximately 20 minutes. According to the mobile crane operator, the patient asked to end the conversation. When this nurse asked the mobile crane operator if there may be a reason to be concerned about the safety of the patient due to potential self harm, he stated that this might be a possibility. Based on this information, this nurse spoke to the patient and inquired if he felt the conversation with the mobile crane operator was beneficial. The patient answered that he felt worse now then ever, he has nothing to go back to when leaving the hospital, and that he just wants to go to sleep. This nurse informed him that I would have to ask him some important questions and to please open his eyes and talk for a minute. The patients response was: I know what you are going to ask me, but I can tell you right now that I am just going to lie and say whatever it is to make you go away. This nurse then asked the patient if he had any thoughts or plans of harming himself. His immediate response was : No, and now please go away. After returning to the nursing station, this nurse received a phone call from a female caller identifying herself as the patients mother. She stated she had received several e-mails and text messages from her son indicating his intention to end his own life. She insisted that we medicate him and asked to speak to a provider without the knowledge of her son. This nurse explained to the female caller that we can not give out any information not listed in the patients contact list. About ten minutes later, a male caller that refused to identify himself or his relationship to the patient asked to speak to this nurse. He reported that he had received several text messages and e-mails from the patient in the last few hours and days. The caller claimed that in these text messages and e-mails, the patient threatened to harm himself and others. The caller was informed by this nurse that if he felt he was being threatened he should notify local police. Following these phone calls and the conversation with the patient, the charge nurse, dry house worker and provider were notified and informed of the situation. The decision was made by the provider to transfer the patient to ICU for suicide monitoring, security was called to the floor to assist with transport. A short time thereafter, the patient excited the room fully dressed, pushed past security and exited the building. Local police was called to apprehend the patient due to the risk to inflict self harm. [facility] and local police were able to secure the patient in front of the hospital and escort him back inside where he was readmitted to ICU.
[2025-04-23] MEDS: INSULIN GLARGINE (*BKC) 100 UNITS/ML 18 UNITS SUB-Q (21:22)
[2025-04-23] MEDS: NICOTINE (*PBKC) 21 MG PATCH 1 PATCH TRANSDERM ×2 (21:31)
[2025-04-23 22:00] VITALS: BP 126/80; PULSE 67; RESP 18; TEMP 36.8; O2SAT 99
[2025-04-23] MEDS: LORazepam INJ (*CRX) 2 MG/ML VIAL IV PUSH (22:24)
[2025-04-24] MEDS: VANCOMYCIN 1,500 MG/NS 500 ML 1,500 MG/500 ML BAG 250 MG IVPB (01:36)
[2025-04-24 04:57] LABS: Hematocrit 41.1 % (42.0-52.0); Hemoglobin 13.8 g/dL (14.0-18.0); Immature Granulocyte Percent A 0.4 % (0-0.5); Lymphocytes Absolute Auto 2.34 K/mm3 (0.9-3.2); Mean Corpuscular HGB Conc 33.6 g/dl (32-36); Mean Corpuscular Hemoglobin 29.6 pg (26-34); Mean Corpuscular Volume 88.0 fl (80-100); Nucleated Red Blood Cells Absolute Auto 0.000 K/mm3 (0.0-0.012); Nucleated Red Blood Cells Perc 0.0 % (0.0-0.2); Platelet Count Result 335 k/mm3 (150-375); Red Blood Count 4.67 M/mm3 (4.6-6.20); White Blood Count 8.0 K/mm3 (4.5-10.0)
[2025-04-24 05:49] LABS: Alanine Aminotransferase 17 U/L (6-50); Albumin Level 3.6 g/dL (3.5-5.1); Alkaline Phosphatase 54 U/L (38-126); Anion Gap 7 mmol/L (4-12); Aspartate Amino Transferase 30 U/L (17-59); Bilirubin,Total 0.3 mg/dL (0.2-1.3); Blood Urea Nitrogen 12 mg/dL (9-20); Calcium 9.4 mg/dL (8.4-10.2); Carbon Dioxide 23 mmol/L (22-30); Chloride 108 mmol/L (98-107); Estimated CRCL calculation 109 ml/min; Estimated Glomerular Filt Rate > 60; Glucose 144 mg/dL (65-110); Potassium 3.9 mmol/L (3.4-5.0); Sodium 138 mmol/L (137-145); Total Protein 6.6 g/dL (6.3-8.2)
[2025-04-24] MEDS: metroNIDAZOLE 500 MG/ISO 100ML 500 MG/100 ML BAG 100 MG IVPB (05:58)
[2025-04-24 06:00] VITALS: BP 130/72; PULSE 72; RESP 16; TEMP 36.7; O2SAT 99
--- NOTE | 2025-04-24 07:43 | P.PNIM_ITS ---
Progress Note: A&P Assessment and Plan (1) Diabetic foot infection: Code(s): E11.628 - Type 2 diabetes mellitus with other skin complications; L08.9 - Local infection of the skin and subcutaneous tissue, unspecified Status: Acute Assessment and Plan: * Recent partial Amputation Right great toe. * Meets SIRS criteria * Consult wound care * Continue abx of Vancomycin, Cefepime, and Flagyl * Wound and blood cultures pending. * PRN Pain meds * Trend and monitor labs and VS. * Consult Gen Sgy * Continue IV abx * Monitor over next few days * No surgical intervention at this time * Remains afebrile without leukocytosis. * Blood cultures show no growth to date * Wound culture still pending (2) Right leg pain: Code(s): M79.604 - Pain in right leg Status: Acute Assessment and Plan: * New onset RLE pain and TTP since yesterday * On exam: No new overlying skin changes, unilateral swelling. DP appreciated * No SOB, O2 demand or need for supplementation (100% O2 on RA) * Monitor vital signs, I&Os, shortness of breath and chest pain. Patient is a fall risk * Monitor serum electrolytes, PTT, CBC, WBC, temperature curve and cultures. * [place] Doppler US: No evidence of deep vein thrombosis involving the right lower extremity. Prominent lymph nodes at the right groin, but with preserved fatty kumar. * Denies any pain or swelling today * No changes (3) Type 2 diabetes mellitus with hyperglycemia, without long-term current use of insulin: Code(s): E11.65 - Type 2 diabetes mellitus with hyperglycemia Status: Chronic Assessment and Plan: * SSI * A1C 9.6% * Hypoglycemic protocol * Diabetic diet * Glucose checks AC and HS. (4) Osteomyelitis: Qualifiers: Laterality: right Osteomyelitis location: foot Osteomyelitis type: chronic, with draining sinus Qualified Code(s): M86.471 - Chronic osteomyelitis with draining sinus, right ankle and foot Code(s): M86.9 - Osteomyelitis, unspecified Status: Acute Assessment and Plan: * Likely Acute on Chronic as evidenced by CT Scan that is independently reviewed by this provider. * Continue IV abx of Vanc, Cefepime and Flagyl * Wound Cultures pending * General surgery following closely (5) Tobacco abuse: Code(s): Z72.0 - Tobacco use Status: Acute Assessment and Plan: * Nicotine patch 21 mg daily Subjective Date/time seen: 04/24/25 07:43 Interval history: 49-year-old male patient with past medical history PTSD, ADD, type 2 diabetes mellitus, glaucoma who had a partial amputation of the right great toe [address] Vasquez, who presents to the emergency room today with complaints of having pain, swelling and redness with some drainage in the area of the previous amputation. 04/24/2025 Patient sitting comfortably in bed at time examination. Reports continued baseline right foot pain, same level as yesterday. Patient remains afebrile without leukocytosis. Blood cultures showed no growth to date. General surgery to continue following. Continue wound care and IV antibiotics. Will transition to oral antibiotics upon discharge. Review of Systems Review of Systems: All systems reviewed & are unremarkable except as noted in HPI and below Exam Const: General: comfortable and no acute distress HENMT: Face/Nose/Sinus: Normal nares present Mouth: Yes moist mucous membra marzena Eyes: General: appearance normal, both eyes and all related structures Neck: Neck: supple and no JVD Lymphatic: lymphadenopathy not noted Resp: Effort & Inspection: normal respiratory effort Cardio: Rate: regular rate Rhythm: regular rhythm Heart sounds: no gallops, no murmurs and no rubs GI: Auscultation: normal bowel sounds Skin: General skin exam: erythema (Right dorsal foot with some warmth and redness.), No lesion, No rashes and wounds noted (Right foot along first metatarsal.) Lesions: no lesions noted Rashes: no rashes noted Wounds: wounds noted (Right foot along first metatarsal.) Other: S/p R 1st toe amputation. Healthy appearing granulation tissue, no tracking, purulence. Minimal erythma. Neuro: Speech: normal speech Motor exam (neuro): 5/5 motor strength present throughout and Normal motor muscle tone present throughout Sensory Exam: normal sensation Extrem: General: normal exam except as noted, edema (trace edema RLE) and no pedal edema Other: TTP to RL extremity. No new overlying skin changes or unilateral sweling Psych: Mental Status: mental status grossly normal Affect: normal affect Objective Data Vital Signs Vital Signs: Vital Signs - 24 hr 04/23/25 08:00 04/23/25 14:00 04/23/25 18:40 Temperature 97.8 F Pulse Rate 69 85 Respiratory Rate 18 20 Blood Pressure 118/76 136/93 H Pulse Oximetry 100 100 100 Oxygen Delivery Room Air 04/23/25 20:00 04/23/25 22:00 04/24/25 06:00 Temperature 98.3 F 98.0 F Pulse Rate 67 72 Respiratory Rate 18 16 Blood Pressure 126/80 130/72 Pulse Oximetry 99 99 Oxygen Delivery Room Air Intake/Output Intake/Output: Intake & Output 04/21/25 04/22/25 04/23/25 04/24/25 23:59 23:59 23:59 23:59 Intake Total 2960 3440 2480 1000 Output Total 1 Balance 2960 3439 2480 1000 Meds/Results Medications: Active Medications Generic Name Dose Route Start Last Admin Trade Name Freq PRN Reason Stop Dose Admin Acetaminophen 1,000 mg 04/20/25 22:33 Acetaminophen 500 Mg Tablet PO Q6H PRN Mild Pain (1-3) or Fever Hydrocodone Bitart/Acetaminophen 1 tab 04/20/25 22:33 Hydrocodone/Acetaminophen (*Crx) 5-325 Mg Tablet PO Q4H PRN Pain Rated 4-6 Dextrose 12.5 gm 04/20/25 22:33 Dextrose 50% 25 Gm/50 Ml Syringe IV PUSH PRN PRN Hypoglycemia Protocol Glucagon 1 mg 04/20/25 22:33 Glucagon For Inj 1 Mg Vial IM PRN PRN Hypoglycemia Protocol Glucose 15 gm 04/20/25 22:33 Glucose Oral Gel 15 Gm Of Glucse In 37.5 Gm Tube PO PRN PRN Hypoglycemia Protocol Cefepime HCl 2 gm/ Sodium 50 mls @ 100 mls/hr 04/21/25 09:00 04/23/25 21:38 Chloride IVPB Infused Q12H ADAM Infusion Metronidazole 500 mg in 100 mls @ 100 mls/hr 04/21/25 06:00 04/24/25 05:58 Flagyl 500 Mg/Iso Soln 100 Ml IVPB 100 mls/hr Q8H ADAM Administration Dextrose 1,000 mls @ 100 mls/hr 04/20/25 22:33 Dextrose 5% 1,000 Ml IVPB PRN PRN Hypoglycemia Protocol Vancomycin HCl 1,500 mg in 500 mls @ 250 mls/hr 04/24/25 02:00 04/24/25 03:36 Vancomycin 1,500 Mg/Ns 500 Ml IVPB Infused Q12H ADAM Infusion Insulin Aspart 2 - 5 units 04/21/25 08:00 04/23/25 19:02 Insulin Aspart (*Bkc) 100 Units/Ml SUB-Q Not Given TIDWM [facility] Protocol Insulin Aspart 1 - 2 units 04/20/25 22:40 04/23/25 21:09 Insulin Aspart (*Bkc) 100 Units/Ml SUB-Q Not Given HS [facility] Protocol Insulin Glargine 18 units 04/21/25 21:00 04/23/25 21:22 Insulin Glargine (*Bkc) 100 Units/Ml SUB-Q 18 units QHS ADAM Administration Morphine Sulfate 2 mg 04/20/25 22:33 Morphine Sulfate (*Crx) 2 Mg/Ml Inj IV PUSH Q4H PRN Pain Rated 7-10 Nicotine 1 patch 04/23/25 21:30 04/23/25 21:31 Nicotine (*Pbkc) 21 Mg Patch TRANSDERM 1 patch DAILY ADAM Administration Radiology Results: ITS Impressions Foot X-Ray 04/20/25 18:41 IMPRESSION: Air within the soft tissues which are markedly edematous tracking along the fascial planes for which an ascending infection is suspected. Lower Extremity CT 04/20/25 20:42 IMPRESSION: No air is detected within the soft tissues of the right foot as suspected on plain radiograph. The lucency on plain radiograph likely corresponding to a small fluid roman ection, as detailed above. Significant soft tissue swelling with redemonstration of findings suggestive of osteomyelitis within the distal margin of the first metatarsal at the site of prior amputation. Venous Doppler Study 04/22/25 11:34 Impression: No evidence of deep vein thrombosis involving the right lower extremity. Prominent lymph nodes at the right groin, but with preserved fatty kumar. Labs Labs: Laboratory Results - last 24 hr 04/23/25 04/23/25 04/23/25 08:00 11:32 13:05 WBC RBC Hgb Hct MCV MCH MCHC RDW Plt Count MPV Immature Gran % (Auto) Neut % (Auto) Lymph % (Auto) [place] % (Auto) Eos % (Auto) Baso % (Auto) Lymph # (Auto) [place] # (Auto) Eos # (Auto) Baso # (Auto) Abs Immat Gran (auto) Absolute Neuts (auto) Absolute Nucleated RBC Nucleated RBC % Sodium Potassium Chloride Carbon Dioxide Anion Gap BUN Creatinine Estim Creat Clear Calc Estimated GFR Glucose POC Capillary Glucose 124 H 187 H Calcium Total Bilirubin AST ALT Alkaline Phosphatase Total Protein Albumin Vancomycin Trough 17.2 04/23/25 04/23/25 04/24/25 16:49 21:07 03:37 WBC 8.0 RBC 4.67 Hgb 13.8 L Hct 41.1 L MCV 88.0 MCH 29.6 MCHC 33.6 RDW 13.0 Plt Count 335 MPV 10.3 Immature Gran % (Auto) 0.4 Neut % (Auto) 55.5 Lymph % (Auto) 29.4 [place] % (Auto) 8.4 Eos % (Auto) 5.4 H Baso % (Auto) 0.9 Lymph # (Auto) 2.34 [place] # (Auto) 0.7 H Eos # (Auto) 0.4 H Baso # (Auto) 0.1 Abs Immat Gran (auto) 0.03 Absolute Neuts (auto) 4.4 Absolute Nucleated RBC 0.000 Nucleated RBC % 0.0 Sodium 138 Potassium 3.9 Chloride 108 H Carbon Dioxide 23 Anion Gap 7 BUN 12 Creatinine 0.79 Estim Creat Clear Calc 109 Estimated GFR > 60 Glucose 144 H POC Capillary Glucose 177 H 175 H Calcium 9.4 Total Bilirubin 0.3 AST 30 ALT 17 Alkaline Phosphatase 54 Total Protein 6.6 Albumin 3.6 Vancomycin Trough Quality VTE Prophylaxis VTE prophylaxis: mechanical ordered
[2025-04-24 08:00] VITALS: PULSE 65; RESP 14; O2SAT 99
[2025-04-24] MEDS: CEFEPIME 2 GM in SODIUM CHLORIDE 0.9% IV 50 ML 100 ML IVPB (08:33)
[2025-04-24 08:35] VITALS: BP 112/73; PULSE 65; RESP 14; TEMP 36.9; O2SAT 99
--- NOTE | 2025-04-24 10:00 | PC.NURSE ---
Pt called this RN to the room. What is this. I need utensils. I'm not eating with my fingers like an animal. RN re-educated pt on the suicide precautions that he has ordered after his incident yesterday. I don't care. I'm leaving. Pt rolled over in bed away from RN.
--- NOTE | 2025-04-24 11:28 | PC.NURSE ---
1114- Pt called out I want to see my nurse. This RN entered room to speak with pt. Pt began to yell at RN. I'm not doing this. I'm not taking any medications. I don't need any antibiotics. My foot is just fine. I'm leaving. Get ahold of someone to get me out of here now. This RN called NETTIE Paz to update him on the situation. This RN called security to be at bedside for staff safety. PA to bedside to assess pt. I will try to contact surgery to see if they are ok with discharging him. PA attempted to call surgery while at nurse's station, with no answer obtained. Pt continues to repeatedly press call light button and scream at security and staff GET ME THE FUCK OUT OF HERE!!!! [phone] Douglas (surgery) at pt's bedside to attempt dressing change. Pt not allowing dressing to be changed. I don't give a fuck about my foot. I'm fine. GET ME THE FUCK OUT OF HERE!!!!! Surgery PA will place a call to surgeon to see about discharging pt.
--- NOTE | 2025-04-24 11:58 | P.PNGS_ITS ---
Progress Note: A&P Assessment and Plan (1) Diabetic ulcer of right great toe: Code(s): E11.621 - Type 2 diabetes mellitus with foot ulcer; L97.519 - Non-pressure chronic ulcer of other part of right foot with unspecified severity Status: Acute Assessment and Plan: * Patient is surgically stable for discharge. Very surrounding erythema edema to the area yesterday. WBC normal. Afebrile. Continue silver gel in iodoform gauze packing daily. Oral antibiotics upon discharge. Culture still pending. (2) Type 2 diabetes mellitus with hyperglycemia, without long-term current use of insulin: Code(s): E11.65 - Type 2 diabetes mellitus with hyperglycemia Status: Chronic Assessment and Plan: * Continue as per Hospitalist (3) Tobacco abuse: Code(s): Z72.0 - Tobacco use Status: Acute Plan Discussed patient's case and plan of care with Dr. Wright. Subjective Subjective Date/Time Seen: 04/24/25 11:58 Interval history: Patient medically stable. However, psychiatric event overnight. Per nursing note, patient spoke with tool trouble shooter and shortly after stated that he felt worse now than ever, he has nothing to go back to only the hospital. When asked if he had any thoughts of plans of harming himself he said he was going to say what ever is going to make said nurse go away. Nursing station received calls from patient's mother and another family member both stating that they received several emails and text messages from patient indicating his intention to end his own life and possibly harm others. The decision was made to transfer the patient to the ICU for suicide monitoring. Shortly thereafter the patient exited the room fully dressed pushing past security exited the building. Local police was called in with [place] security they were able to secure the patient in front of the hospital and escorted back inside where he was readmitted to the ICU. Vital signs remained stable. White blood cell count normal. Exam Const: General: in distress Other: Patient agitated and yelling at hospital staff. Extrem: Other: Unable to assess and perform packing change on patient, as he refused yelling ?I do not care about my f*cking foot. Get me the f*ck out of here Psych: Attitude: Belligerent attititude/behavior present Objective Data Vital Signs Vital Signs: Vital Signs - 24 hr 04/23/25 14:00 04/23/25 18:40 04/23/25 20:00 Temperature 97.8 F Pulse Rate 69 85 Respiratory Rate 18 20 Blood Pressure 118/76 136/93 H Pulse Oximetry 100 100 Oxygen Delivery Room Air 04/23/25 22:00 04/24/25 06:00 04/24/25 08:00 Temperature 98.3 F 98.0 F Pulse Rate 67 72 65 Respiratory Rate 18 16 14 Blood Pressure 126/80 130/72 Pulse Oximetry 99 99 99 Oxygen Delivery Room Air 04/24/25 08:35 Temperature 98.5 F Pulse Rate 65 Respiratory Rate 14 Blood Pressure 112/73 Pulse Oximetry 99 Oxygen Delivery Intake/Output Intake/Output: Intake & Output 04/21/25 04/22/25 04/23/25 04/24/25 23:59 23:59 23:59 23:59 Intake Total 2960 3440 2480 1150 Output Total 1 Balance 2960 3439 2480 1150 Meds/Results Medications: Active Medications Generic Name Dose Route Start Last Admin Trade Name Freq PRN Reason Stop Dose Admin Acetaminophen 1,000 mg 04/20/25 22:33 Acetaminophen 500 Mg Tablet PO Q6H PRN Mild Pain (1-3) or Fever Hydrocodone Bitart/Acetaminophen 1 tab 04/20/25 22:33 Hydrocodone/Acetaminophen (*Crx) 5-325 Mg Tablet PO Q4H PRN Pain Rated 4-6 Amoxicillin/Clavulanate Potassium 1 tablet 04/24/25 21:00 Amoxicillin/Clavulanate K 875-125 Mg Tab PO 05/04/25 21:01 Q12HR ADAM Dextrose 12.5 gm 04/20/25 22:33 Dextrose 50% 25 Gm/50 Ml Syringe IV PUSH PRN PRN Hypoglycemia Protocol Doxycycline Hyclate 100 mg 04/24/25 12:00 Doxycycline Hyclate 100 Mg Tablet PO 05/04/25 21:01 Q12HR ADAM Glucagon 1 mg 04/20/25 22:33 Glucagon For Inj 1 Mg Vial IM PRN PRN Hypoglycemia Protocol Glucose 15 gm 04/20/25 22:33 Glucose Oral Gel 15 Gm Of Glucse In 37.5 Gm Tube PO PRN PRN Hypoglycemia Protocol Dextrose 1,000 mls @ 100 mls/hr 04/20/25 22:33 Dextrose 5% 1,000 Ml IVPB PRN PRN Hypoglycemia Protocol Insulin Aspart 2 - 5 units 04/21/25 08:00 04/24/25 08:33 Insulin Aspart (*Bkc) 100 Units/Ml SUB-Q Not Given TIDWM COUNT INCLUDES [facility] Protocol Insulin Aspart 1 - 2 units 04/20/25 22:40 04/23/25 21:09 Insulin Aspart (*Bkc) 100 Units/Ml SUB-Q Not Given HS COUNT INCLUDES THE [facility] Protocol Insulin Glargine 18 units 04/21/25 21:00 04/23/25 21:22 Insulin Glargine (*Bkc) 100 Units/Ml SUB-Q 18 units QHS COUNT INCLUDES THE [facility] Administration Morphine Sulfate 2 mg 04/20/25 22:33 Morphine Sulfate (*Crx) 2 Mg/Ml Inj IV PUSH Q4H PRN Pain Rated 7-10 Nicotine 1 patch 04/24/25 21:00 Nicotine (*Pbkc) 21 Mg Patch TRANSDERM [facility] Radiology Results: ITS Impressions Foot X-Ray 04/20/25 18:41 IMPRESSION: Air within the soft tissues which are markedly edematous tracking along the fascial planes for which an ascending infection is suspected. Lower Extremity CT 04/20/25 20:42 IMPRESSION: No air is detected within the soft tissues of the right foot as suspected on plain radiograph. The lucency on plain radiograph likely corresponding to a small fluid collection, as detailed above. Significant soft tissue swelling with redemonstration of findings suggestive of osteomyelitis within the distal margin of the first metatarsal at the site of prior amputation. Venous Doppler Study 04/22/25 11:34 Impression: No evidence of deep vein thrombosis involving the right lower extremity. Prominent lymph nodes at the right groin, but with preserved fatty kumar. Labs Labs: Laboratory Results - last 24 hr 04/23/25 04/23/25 04/23/25 13:05 16:49 21:07 WBC RBC Hgb Hct MCV MCH MCHC RDW Plt Count MPV Immature Gran % (Auto) Neut % (Auto) Lymph % (Auto) [place] % (Auto) Eos % (Auto) Baso % (Auto) Lymph # (Auto) [place] # (Auto) Eos # (Auto) Baso # (Auto) Abs Immat Gran (auto) Absolute Neuts (auto) Absolute Nucleated RBC Nucleated RBC % Sodium Potassium Chloride Carbon Dioxide Anion Gap BUN Creatinine Estim Creat Clear Calc Estimated GFR Glucose POC Capillary Glucose 177 H 175 H Calcium Total Bilirubin AST ALT Alkaline Phosphatase Total Protein Albumin Vancomycin Trough 17.2 04/24/25 04/24/25 03:37 08:33 WBC 8.0 RBC 4.67 Hgb 13.8 L Hct 41.1 L MCV 88.0 MCH 29.6 MCHC 33.6 RDW 13.0 Plt Count 335 MPV 10.3 Immature Gran % (Auto) 0.4 Neut % (Auto) 55.5 Lymph % (Auto) 29.4 [place] % (Auto) 8.4 Eos % (Auto) 5.4 H Baso % (Auto) 0.9 Lymph # (Auto) 2.34 [place] # (Auto) 0.7 H Eos # (Auto) 0.4 H Baso # (Auto) 0.1 Abs Immat Gran (auto) 0.03 Absolute Neuts (auto) 4.4 Absolute Nucleated RBC 0.000 Nucleated RBC % 0.0 Sodium 138 Potassium 3.9 Chloride 108 H Carbon Dioxide 23 Anion Gap 7 BUN 12 Creatinine 0.79 Estim Creat Clear Calc 109 Estimated GFR > 60 Glucose 144 H POC Capillary Glucose 145 H Calcium 9.4 Total Bilirubin 0.3 AST 30 ALT 17 Alkaline Phosphatase 54 Total Protein 6.6 Albumin 3.6 Vancomycin Trough
--- NOTE | 2025-04-24 12:55 | PC.NURSE ---
RN to pt's bedside to review discharge instructions. Pt states I don't want those papers. I don't want the prescriptions. My foot is fine. Here you can take your sock as well and just keep the infection. Discharge papers placed in medical records basket. Pt escorted to bus station by security.
--- NOTE | 2025-04-24 14:44 | PM.DS ---
DS: Admitting Diagnosis Discharge Date 04/24/2025 Admitting Diagnosis Diabetic foot infection DS: Discharge Diagnosis Discharge Diagnosis (1) Diabetic foot infection: Code(s): E11.628 - Type 2 diabetes mellitus with other skin complications; L08.9 - Local infection of the skin and subcutaneous tissue, unspecified Status: Acute Assessment and Plan: Recent partial Amputation Right great toe. Meets SIRS criteria Consult wound care Continue abx of Vancomycin, Cefepime, and Flagyl Wound and blood cultures pending. PRN Pain meds Trend and monitor labs and VS. Consult Gen Sgy Continue IV abx Monitor over next few days No surgical intervention at this time Remains afebrile without leukocytosis. Blood cultures show no growth to date Wound culture still pending (2) Right leg pain: Code(s): M79.604 - Pain in right leg Status: Acute Assessment and Plan: New onset RLE pain and TTP since yesterday On exam: No new overlying skin changes, unilateral swelling. DP appreciated No SOB, O2 demand or need for supplementation (100% O2 on RA) Monitor vital signs, I&Os, shortness of breath and chest pain. Patient is a fall risk Monitor serum electrolytes, PTT, CBC, WBC, temperature curve and cultures. Burak Doppler US: No evidence of deep vein thrombosis involving the right lower extremity. Prominent lymph nodes at the right groin, but with preserved fatty kumar. Denies any pain or swelling today No changes (3) Type 2 diabetes mellitus with hyperglycemia, without long-term current use of insulin: Code(s): E11.65 - Type 2 diabetes mellitus with hyperglycemia Status: Chronic Assessment and Plan: SSI A1C 9.6% Hypoglycemic protocol Diabetic diet Glucose checks AC and HS. (4) Osteomyelitis: Qualifiers: Laterality: right Osteomyelitis location: foot Osteomyelitis type: chronic, with draining sinus Qualified Code(s): M86.471 - Chronic osteomyelitis with draining sinus, right ankle and foot Code(s): M86.9 - Osteomyelitis, unspecified Status: Acute Assessment and Plan: Likely Acute on Chronic as evidenced by CT Scan that is independently reviewed by this provider. Continue IV abx of Vanc, Cefepime and Flagyl Wound Cultures pending General surgery following closely (5) Tobacco abuse: Code(s): Z72.0 - Tobacco use Status: Acute Assessment and Plan: Nicotine patch 21 mg daily DS: Summary Hospital Course Reason for hospitalization: Foot wound Hospital Course: This is a very pleasant 49-year-old male patient with past medical history PTSD, ADD, type 2 diabetes mellitus, glaucoma who had a partial amputation of the right great toe [address] Vasquez, who presents to the emergency room today with complaints of having pain, swelling and redness with some drainage in the area of the previous amputation. Patient states there was no acute injury, inciting or traumatic event to cause the area to become red. He notes he was on doxycycline 100 mg for 10 days and finished that approximately 2 weeks ago. He did state that he has been unable to check his glucose for the past 2 weeks because his physician and the pharmacy refused to fill his test strips. I advised the patient that test strips are available over the counter as well without a prescription and he stated that as he has been out of work for several months due to the surgery that he had absolutely no money and was unable to afford any. He stated therefore as a compromise he did not check his glucose and although he did take some insulin he did not take it as he was supposed to. Patient denies any fevers or any other acute complaints. He is a daily tobacco user, occasional user of alcohol and does occasionally smoke methamphetamine. Patient denies any current pain in the affected area and states he has just been trying to take care of it by cleaning with soap and water at home. In the Emergency warm workup was performed that showed normal vital signs, leukocytosis with white blood cell count of 14.4 with left shift, preserved H&H of 15.6 and 46.2 platelets of 323. Unremarkable metabolic panel, lactic normal at 1.7, urinalysis negative for infection. CRP is elevated at 2.5. At the time of admission urine drug screen is pending. Patient is not meeting sepsis criteria, however he does meet SIRS and is a high risk for sepsis. He is initial dose of vancomycin, cefepime and Flagyl. X-ray the right foot showing air within the soft tissues which are markedly edematous tracking along the fascial planes for which an ascending infection is suspected. This was followed up with CT scan of the lower extremity that demonstrated no air detected within the soft tissues of the right foot that was a regionally at explained in suspected on plain films, however there is lucency on the plain radiograph that likely corresponds to a small fluid collection. There is associated soft tissue swelling with redemonstration of findings suggestive of osteomyelitis within the distal margin of the 1st metatarsal at the site of the prior amputation. General surgery, Dr. Wright has been consulted as he is on for Dr. Vasquez, and pt is being admitted in the current setting for continued treatment. 04/21/2025 Patient sitting comfortably in bed at time examination. Remains afebrile. WBC 10.1 but bloodwork otherwise unremarkable stable. Patient to see general surgery regarding diabetic foot infection wound care consulted. Will continue antibiotic coverage with vancomycin, cefepime and Flagyl. Blood/wound cultures pending. Patient otherwise has no complaints or concerns at this time 04/22/2025 Patient sitting comfortably in bed at time examination. Denies any chest pain, shortness of breath, n/v or abd pain. Does endorse some right lower calf pain/TTP. No new overlying skin changes or unilateral swelling. Will obtain Burak dop US to r/o DVT, although SCD's have been ordered for entirety of hospitalization. Labs and vitals remain stable. Surgery to continue monitoring foot ulcer. Pt otherwise has no complaints or concerns. 04/23/2025 Patient sitting comfortably in bed at time examination. No acute overnight events. Denies any chest pain, n/v, abd pain or SOB. States his foot/lower leg feel better today - LE US negative for DVT. Continue to monitor wound with General Surgery following. Blood/wound cultures still pending at this time. Remains afebrile without leukocytosis. Pt otherwise has no complaints/concerns. Per nursing note on 04/23/2025 at 7:41 p.m.: On Wednesday04/22/25, the patient asked this nurse to speak with a lease purchase truck driver if available. He stated he is suffering from anxiety due to his current living circumstances and would like some spiritual guidance. On Wednesday afternoon, the [facility] lease purchase truck driver visited the patient in his room and spoke to him for approximately 20 minutes. According to the lease purchase truck driver, the patient asked to end the conversation. When this nurse asked the lease purchase truck driver if there may be a reason to be concerned about the safety of the patient due to potential self harm, he stated that this might be a possibility. Based on this information, this nurse spoke to the patient and inquired if he felt the conversation with the lease purchase truck driver was beneficial. The patient answered that he felt worse now then ever, he has nothing to go back to when leaving the hospital, and that he just wants to go to sleep. This nurse informed him that I would have to ask him some important questions and to please open his eyes and talk for a minute. The patients response was: I know what you are going to ask me, but I can tell you right now that I am just going to lie and say whatever it is to make you go away. This nurse then asked the patient if he had any thoughts or plans of harming himself. His immediate response was : No, and now please go away. After returning to the nursing station, this nurse received a phone call from a female caller identifying herself as the patients mother. She stated she had received several e-mails and text messages from her son indicating his intention to end his own life. She insisted that we medicate him and asked to speak to a provider without the knowledge of her son. This nurse explained to the female caller that we can not give out any information not listed in the patients contact list. About ten minutes later, a male caller that refused to identify himself or his relationship to the patient asked to speak to this nurse. He reported that he had received several text messages and e-mails from the patient in the last few hours and days. The caller claimed that in these text messages and e-mails, the patient threatened to harm himself and others. The caller was informed by this nurse that if he felt he was being threatened he should notify local police. Following these phone calls and the conversation with the patient, the charge nurse, house piping inspector and provider were notified and informed of the situation. The decision was made by the provider to transfer the patient to ICU for suicide monitoring, security was called to the floor to assist with transport. A short time thereafter, the patient excited the room fully dressed, pushed past security and exited the building. Local police was called to apprehend the patient due to the risk to inflict self harm. [facility] and local police were able to secure the patient in front of the hospital and escort him back inside where he was readmitted to ICU. General surgery continued to follow throughout hospitalization. Patient was placed on IV antibiotics and continued with local wound care throughout hospitalization. Patient continued to progress well throughout visit, endorsing significant pain relief by 04/24. Venous Doppler study was obtained on 04/22 to rule out DVT as patient was endorsing worsening right lower extremity pain. Ultrasound did not show evidence of deep vein thrombosis. There was no overlying skin changes or unilateral swelling. Distal pulses intact. On 04/24, patient was cleared for discharge per General surgery. Discussed with ID pharmacist regarding discharge medications, agree with Augmentin and doxycycline for an additional 21 doses to be taken twice daily. Patient is amenable to this plan. On 04/24, per nursing note: 1114- Pt called out I want to see my nurse. This RN entered room to speak with pt. Pt began to yell at RN. I'm not doing this. I'm not taking any medications. I don't need any antibiotics. My foot is just fine. I'm leaving. Get ahold of someone to get me out of here now. This RN called NETTIE Paz to update him on the situation. This RN called security to be at bedside for staff safety. PA to bedside to assess pt. I will try to contact surgery to see if they are ok with discharging him. PA attempted to call surgery while at nurse's station, with no answer obtained. Pt continues to repeatedly press call light button and scream at security and staff GET ME THE FUCK OUT OF HERE!!!! [phone]-NETTIE Douglas (surgery) at pt's bedside to attempt dressing change. Pt not allowing dressing to be changed. I don't give a fuck about my foot. I'm fine. GET ME THE FUCK OUT OF HERE!!!!! Surgery PA will place a call to surgeon to see about discharging pt. I discussed this case with Evelyn Lerma from General Surgery who discussed this with Dr. Wright who agreed the patient can be safely discharged at this time. Patient is otherwise hemodynamically stable and can be discharged on p.o. doxycycline and Augmentin. Patient is medically cleared for psychiatric evaluation for discharge at this time. Status at Discharge Functional status at discharge: independent ambulation Overall status at discharge: patient is back to baseline Time Spent with Patient Time attestation: Total time spent providing and/or coordinating discharge services: 54 Exam Const: General: in distress Other: Agitated and yelling at hospital staff, including myself. Reportedly stated I do not care about my f*cking foot. Get me the f*ck out of here according to General Surgery note. HENMT: Face/Nose/Sinus: Normal nares present Mouth: Yes moist mucous membranes Eyes: General: appearance normal, both eyes and all related structures Neck: Neck: supple and no JVD Lymphatic: lymphadenopathy not noted Resp: Effort & Inspection: normal respiratory effort Cardio: Rate: regular rate Rhythm: regular rhythm Heart sounds: no gallops, no murmurs and no rubs GI: Auscultation: normal bowel sounds Skin: Other: Unable to assess wound as patient expressed a great desire and being discharged and would not allow me or staff to will get wound Neuro: Speech: normal speech Motor exam (neuro): 5/5 motor strength present throughout and Normal motor muscle tone present throughout Sensory Exam: normal sensation Psych: Affect: Hostile affect present Attitude: Belligerent attititude/behavior present DS: Data Data Completed and Pending Labs on day of discharge: Labs from last 24 hours 04/24/25 04/24/25 04/23/25 08:33 03:37 21:07 WBC 8.0 RBC 4.67 Hgb 13.8 L Hct 41.1 L MCV 88.0 MCH 29.6 MCHC 33.6 RDW 13.0 Plt Count 335 MPV 10.3 Immature Gran % (Auto) 0.4 Neut % (Auto) 55.5 Lymph % (Auto) 29.4 [place] % (Auto) 8.4 Eos % (Auto) 5.4 H Baso % (Auto) 0.9 Lymph # (Auto) 2.34 [place] # (Auto) 0.7 H Eos # (Auto) 0.4 H Baso # (Auto) 0.1 Abs Immat Gran (auto) 0.03 Absolute Neuts (auto) 4.4 Absolute Nucleated RBC 0.000 Nucleated RBC % 0.0 Sodium 138 Potassium 3.9 Chloride 108 H Carbon Dioxide 23 Anion Gap 7 BUN 12 Creatinine 0.79 Estim Creat Clear Calc 109 Estimated GFR > 60 Glucose 144 H POC Capillary Glucose 145 H 175 H Calcium 9.4 Total Bilirubin 0.3 AST 30 ALT 17 Alkaline Phosphatase 54 Total Protein 6.6 Albumin 3.6 04/23/25 16:49 WBC RBC Hgb Hct MCV MCH MCHC RDW Plt Count MPV Immature Gran % (Auto) Neut % (Auto) Lymph % (Auto) [place] % (Auto) Eos % (Auto) Baso % (Auto) Lymph # (Auto) [place] # (Auto) Eos # (Auto) Baso # (Auto) Abs Immat Gran (auto) Absolute Neuts (auto) Absolute Nucleated RBC Nucleated RBC % Sodium Potassium Chloride Carbon Dioxide Anion Gap BUN Creatinine Estim Creat Clear Calc Estimated GFR Glucose POC Capillary Glucose 177 H Calcium Total Bilirubin AST ALT Alkaline Phosphatase Total Protein Albumin Preliminary micro results at discharge 04/20/25 21:31 Aerobic Culture - Preliminary Foot Right 04/20/25 18:29 Blood Culture - Preliminary Blood 04/20/25 18:22 Blood Culture - Preliminary Blood Discharge Plan Discharge Attending physician on discharge: Lori Palafox Consulting providers: Jackson Ashley; Jozef Wright Discharging Clinician: Jackson Ashley Anticipated Discharge Date/Time: 04/24/25 11:49 Patient Disposition: Home Activity: no straining Diet: heart healthy Discharge Instructions: Discharge disposition: Home Take medications as prescribed. You will be prescribed doxycycline and Augmentin to take for a total 21 doses, take these medicines twice daily for the entire course. Monitor blood pressures Take caution while standing, rising, or moving Change positions slowly taking a break between each position change If you standing feel dizzy sit back down and take a break Encouraged to continue with yearly vaccinations Return to the emergency department if he developed sudden shortness of breath, chest pain, nausea, vomiting, upset stomach or intractable diarrhea Return to the emergency department if you develop fever greater than 101.5 Follow-up with the primary care physician within 1-2 weeks Follow-up with general surgery in the outpatient setting in 2 weeks for management of your diabetic foot ulcer Thank you for choosing [facility] for your healthcare needs Patient Instructions: Antibiotic Form Patient Language: Yoruba Stand Alone Forms: General Discharge Information Follow-up/Referrals: Jozef Wright DO [Physician, General Surgery] - 2 Weeks Referral Note: Call to schedule follow up appointment. Keyshawn Vasquez MD [Primary Care Provider, General Surgery] Discharge Medications: New amoxicillin-pot clavulanate 875-125 mg tablet 1 tablet PO Q12H Qty: 21 0RF doxycycline hyclate 100 mg capsule 100 mg PO DAILY Qty: 21 0RF Continued insulin glargine [Lantus Solostar U-100 Insulin] 100 unit/mL (3 mL) insulin pen 18 unit subcut QPM Qty: 3 2RF insulin lispro 100 unit/mL cartridge 4 unit subcut TID Qty: 15 2RF Rx Instructions: with meals. hold if blood sugar below 12o Date of admission: 04/22/25 12:06 Primary Care Provider: Keyshawn Vasquez Admitting Provider: Lori Palafox Attending physician on admission: Lori Palafox Condition: Stable Quality VTE Prophylaxis VTE prophylaxis: mechanical ordered
== END 2025-04-24 12:55 | disposition home or self-care (01) | DRG 349 ==
LOC: ANHED 21:50 → ANH3MED 22:11 → ANHICU 04-24 11:04 → ANH3MED 04-26 12:00 → ANHICU 04-26 12:00
PROVIDERS: Nurse Practitioner Adult Health; Admitting Provider Family Medicine; Emergency Provider Physician Assistant; PCP Surgery; Visit Provider Physician Assistant
DX: T87.43 Infection of amputation stump, right lower extremity (principal); M86.471 Chronic osteomyelitis with draining sinus, right ankle and foot; M86.171 Other acute osteomyelitis, right ankle and foot; Y83.5 Amputation of limb(s) as the cause of abnormal reaction of the patient, or of later complication, without mention of misadventure at the time of the procedure; E11.621 Type 2 diabetes mellitus with foot ulcer; L97.519 Non-pressure chronic ulcer of other part of right foot with unspecified severity; E11.65 Type 2 diabetes mellitus with hyperglycemia; M79.604 Pain in right leg; D72.829 Elevated white blood cell count, unspecified; H40.9 Unspecified glaucoma; F17.210 Nicotine dependence, cigarettes, uncomplicated; F10.90 Alcohol use, unspecified, uncomplicated; F12.20 Cannabis dependence, uncomplicated; F15.20 Other stimulant dependence, uncomplicated; F14.11 Cocaine abuse, in remission; F43.10 Post-traumatic stress disorder, unspecified; R45.851 Suicidal ideations; F90.9 Attention-deficit hyperactivity disorder, unspecified type; Z89.411 Acquired absence of right great toe; E11.69 Type 2 diabetes mellitus with other specified complication; Z91.141 Patient's other noncompliance with medication regimen due to financial hardship; Z59.00 Homelessness unspecified; Z79.4 Long term (current) use of insulin; Z86.59 Personal history of other mental and behavioral disorders
CPT/HCPCS: 36415; 73630; 73701; 80053; 80202; 80307; 81001; 82550; 82565; 82948; 83036; 83605; 83735; 85025; 85652; 86140; 87040; 87070; 87075; 87205; 93971; 96361; 96365; 96366; 96367; 96374; 96375; 96376; 99285; A9270; G0378; J0692; J1815; J1836; J2060; J3373; J7120; Q9967